=== PATIENT | female | born 1970 | race Caucasian/White ===

== ENCOUNTER → 2020-06-05 07:38 | Outpatient (CLI) | payer OTHER, SELFPAY ==
--- NOTE | 2020-06-05 07:44 | US_ITS ---
PROCEDURE: US ABDOMEN LIMITED CLINICAL INDICATION: CALCULUS OF GALLBLADDER W/O CHOLECYSTITIS W/O OBSTRUCTION COMPARISON: No exams were available for comparison FINDINGS: PANCREAS: Unremarkable. No obvious mass or abnormal fluid collection. No ductal dilatation LIVER: No focal liver lesions demonstrated. Homogeneous echogenicity. No intrahepatic biliary ductal dilatation evident. There is appropriate direction of blood flow within a non dilated portal vein RIGHT KIDNEY: Unremarkable. Normal size and echogenicity. No hydronephrosis GALLBLADDER: Gallbladder is contracted with stones and sludge. No gallbladder wall thickening, pericholecystic fluid, or biliary dilatation. IMPRESSION: Contracted gallbladder filled with stones and sludge Dictated by: Quirino Lima MD 06/08/2020 09:31 uQirino Lima MD in OV 06/08/2020 09:31
--- NOTE | 2020-06-05 07:45 | US_ITS ---
PROCEDURE: US TRANSVAGINAL CLINICAL INDICATION: NEOPLASM OF UNCERTAIN BEHAVIOR OF UTERINE ADNEXA COMPARISON: No exams were available for comparison FINDINGS: UTERUS: 11cm x 7cmx 6cm with a combined endometrial thickness of 11.1mm LEFT OVARY: 2hxe9pph5.2cm with a volume of 32.2ml. RIGHT OVARY: [id number] with a volume of 5.4ml. Nabothian cysts are present. There is a 6 x 4.5 cm fibroid in the fundal area of the uterus. There is a septated 4 cm left ovarian cyst. No cul-de-sac fluid evident. IMPRESSION: Enlarged uterus with 6 cm fibroid in the fundus. 4 cm septated left ovarian cyst Mild thickening of the endometrium Dictated by: Quirino Lima MD 06/08/2020 09:46 Quirino Lima MD in OV 06/08/2020 09:46
== END ==
PROVIDERS: PCP Family Medicine; Visit Provider Family Medicine
DX: K82.0 Obstruction of gallbladder (principal); D39.8 Neoplasm of uncertain behavior of other specified female genital organs
CPT/HCPCS: 76705; 76830

== ENCOUNTER → 2020-06-19 07:42 | Outpatient (CLI) | payer OTHER, SELFPAY ==
[2020-06-19 08:09] LABS: Basophils % 0.4 % (0.1-2.0); Eosinophils # 0.3 K/mm3 (0.0-0.4); Eosinophils % 3.8 % (0.1-12.0); Hematocrit 46.6 % (37.0-47.0); Hemoglobin 15.4 g/dL (12.2-16.2); Lymphocytes # 2.5 K/mm3 (0.7-4.5); Lymphocytes % 27.7 % (10-50); Mean Corpuscular Hemoglobin 29.8 pg (27.0-31.2); Mean Corpuscular Volume 90.2 fl (81-99); Mean Platelet Volume 7.4 fl (7.4-10.4); Monocytes # 0.4 K/mm3 (0.1-1.0); Monocytes % 4.9 % (1.7-9.3); Neutrophils # 5.6 K/mm3 (1.8-7.8); Neutrophils % 63.2 % (37.0-80.0); Platelet Count 356 K/mm3 (142-424); Red Blood Count 5.17 M/mm3 (4.20-5.40); Red Cell Distribution Width 12.9 % (11.5-17.5); White Blood Count 8.9 K/mm3 (4.8-10.8)
[2020-06-19 08:45] LABS: Alanine Aminotransferase 16 U/L (12-78); Albumin Level 4.3 g/dl (3.5-5.0); Albumin/Globulin Ratio 1.3 (1.1-1.8); Alkaline Phosphatase 54 U/L (38-126); Anion Gap 11.4 mEq/L (5-15); Aspartate Amino Transferase 19 U/L (14-36); Bilirubin,Total 0.2 mg/dl (0.2-1.3); Blood Urea Nitrogen 11 mg/dl (7-17); Calcium 9.2 mg/dl (8.4-10.2); Carbon Dioxide 29 mmol/L (22.0-30.0); Chloride 100 mmol/L (98-107); Estimated Glomerular Filt Rate 106 ml/min (>60); GFR (African American) 128 ML/MIN (>60); Globulin 3.3 g/dL (1.3-3.2); Glucose 114 mg/dl (74-100); Potassium 4.4 mmoL/L (3.5-5.1); Sodium 136 mmol/L (136-145); Total Protein,Serum 7.6 g/dl (6.3-8.2)
[2020-06-19 08:53] LABS: Coronavirus 19 IgG Antibody Negative (Negative); Coronavirus 19 IgM Antibody Negative (Negative)
== END ==
PROVIDERS: Visit Provider Surgery
DX: Z01.812 Encounter for preprocedural laboratory examination (principal); Z20.822 Contact with and (suspected) exposure to COVID-19; K82.9 Disease of gallbladder, unspecified
CPT/HCPCS: 36415; 80053; 85025; 86328

== ENCOUNTER 2020-06-21 06:53 | Day surgery (SDC) | payer OTHER, SELFPAY ==
[2020-06-19 11:02] VITALS: BMI 28.3
[2020-06-19 11:25] LABS: HCG Qualitative, Serum Negative (Negative)
[2020-06-21] VITALS (14 sets, daily range): BP systolic 104–139; BP diastolic 56–75; PULSE 62–81; RESP 12–18; TEMP 36.2–43; O2SAT 93–100
--- NOTE | 2020-06-21 08:03 | HMH.ANESCL ---
[facility] Anesthesia Checklist - Patient Identification Patient Identification: Arm Band - Structural Data Admitted From: Home Planned Operative Procedure/s: laparoscopic cholecystectomy Consent for Planned Operative Procedure(s) Verified: Yes Verified Documents: Surgical Consent, History and Physical - NPO Status Verified Time NPO: 00:00 - Additional verifications Anesthesia Reactions: No Hx Blood Transfusions: No Blood Transfusion Reaction: No - Airway Assessment C-Spine Mobility Assessed: Yes (mp2) TMJ Mobility Assessed: Yes Dentition: Good Dentition - Neurological Assessment Level of Consciousness: Awake, Alert - Anesthesia Plan Anesthesia Risk discussed: Yes Anesthesia Plan: Verified ASA Class: II Anesthesia Type: General [facility] History I have reviewed the patient's past medical history: Yes Medical History: Reports:: Gastroesophageal Reflux Disease(GERD) Denies:: Cancer, Diabetes Mellitus Type 1, Diabetes Mellitus Type 2, Internal Pacemaker, MRSA, Seizures *Have you ever received a pneumonia vaccine?: No *Have you received a flu vaccine this season?: No Other Medical History: Denies: Blood Transfusion Reaction Anesthesia experience/problems:: nac Other Surgeries: Yes: Colonoscopy, Tubal Ligation. No: Pacemaker Amputation: No Fractures: No - *Social History Last grade of school completed: High school graduate Smoking Status: Current every day smoker Tobacco Type: cigarettes # Packs/Day (cigarettes): 1 Alcohol Intake: never Alcohol Intake Frequency:: holidays/special occasions only Substance Use Type: denies use *Occupational Status:: employed Housing: house Household Members: spouse *Travel in the last 8 weeks: None Family Hx:: Coronary Artery Disease, Diabetes, Hypertension
--- NOTE | 2020-06-21 09:43 | HMH.OPNOTE ---
Date of procedure: 06/21/20 Pre-op Diagnosis:: Symptomatic gallstones Post-op Diagnosis:: Same Procedure performed:: Laparoscopic Cholecystectomy Surgeon:: Kee Morris MD CREDENTIALING ANALYST:: Caleb Marshall Anesthesia: GETA Estimated blood loss (mL): 25 Clinical Note:: Patient is a pleasant 49-year-old female who lives in [place], [place] referred by Dr. Brady Banda for gallbladder. She states that about a year ago she began having some abdominal pains located in the epigastrium. This is intermittent usually occurring about once per month. However, over the summertime she had a significant attack necessitating an ER visit. She states that over the past couple of months her symptoms have become more constant and more severe. She has pain in the epigastrium and right upper quadrant with radiation around to her right back occasionally. It is not always postprandial but occasionally worsened with spicy foods. She had initially undergone apparent CT scan. She states that there was a question about an upper abdominal hernia. However, this appears to be rectus diastases. She did undergo gallbladder ultrasound which reveals contracted gallbladder filled with multiple gallstones and sludge. 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 She is on Pantoprazole. Operative findings:: She has several distended thickened gallbladder. The neck of the gallbladder tapered into a prominent cystic duct. She had some thin flimsy adhesions of transverse colon to the neck of the gallbladder. Operative note:: Patient was taken to the operating room. She was given preoperative intravenous antibiotics. In the operating room she was placed in a supine position. General anesthesia was induced via endotracheal tube. Her abdomen was prepped and draped in the standard surgical fashion. Subumbilical skin incision was made and while performing abdominal wall lift Veress needle was inserted. CO2 pneumoperitoneum was achieved to 15 mmHg. 11 mm optical trocar was inserted at the umbilicus. Patient was positioned in reverse Trendelenburg left side down. A couple of 5 mm trochars were inserted in the right upper abdomen. 10 mm trocar was inserted in the epigastrium. Gallbladder was grasped retracted anteriorly and superiorly over the dome of the liver. There were some elongated thin flimsy adhesions of the transverse colon to the neck of the gallbladder. These were easily taken down using blunt dissection. Infundibulum/Peres's pouch the gallbladder was retracted anterior laterally. Blunt dissection was carried out at the neck of the gallbladder bluntly incising the visceral peritoneum. Very prolonged dissection was carried out to identify the cystic duct which had chronic adhesions and fibrosis. The neck of the gallbladder tapered to a prominent cystic duct. Ultimately cystic duct and cystic artery were isolated and identified. Cystic duct was isolated, multiply clipped and sharply divided. The cystic artery was coagulated with GIN ultrasonic robotic giovanny and then divided. She did have a couple branches which were both cauterized. The gallbladder was dissected free from the liver in a retrograde fashion using GIN ultrasonic harmonic giovanny. Gallbladder was placed within an Endo Catch retrieval device removed from the peritoneal cavity via the umbilical trocar site. Gallbladder fossa was then inspected for hemostasis which was assured. Limited irrigation was carried out. Trochars were removed as CO2 pneumoperitoneum was evacuated. Fascia at the umbilicus was closed with several interrupted 0 Vicryl sutures. Local anesthetic was infiltrated. Skin incisions were closed with 4-0 Monocryl in subcuticular fashion. Steri-Strips and dressings were applied. Condition: stable Disposition: PACU Specimens:: Gallbladder and contents Complications:: None immediately apparent
--- NOTE | 2020-06-21 09:48 | P.PN_ITS ---
[facility] Anesthesia Record Part I Intake, IV Amount: 1,500 Estimated blood loss (mL): 0 Urine output (mL): 0 Blood Pressure: 139/75 SaO2: 94 Pulse Rate: 81 Respiratory Rate: 12 Temperature: 98 F Patient is:: Awake, Stable Stable to PACU at:: 09:45
[2020-06-22 12:19] VITALS: BP 123/67; PULSE 65; TEMP 36.4
--- NOTE | 2020-06-22 12:19 | P.PN_ITS ---
[facility] Anesthesia Record Part II Discharge Time: 10:54 Destination: Surgical Day Care (OP Surgery) PACU nurse assessment reviewed?: Yes Patient Condition:: Good Anesthesia Complications:: None Swallowing reflex intact?: Yes Cyanosis?: No Blood Pressure: 123/67 Pulse Rate: 65 Temperature: 97.6 F Mental Status: Alert & Oriented Pain level:: 0 Nausea and/or vomitting:: None Intake, IV Amount: 0
== END 2020-06-21 11:30 | disposition home or self-care (01) ==
PROVIDERS: PCP Family Medicine; Visit Provider Surgery
PROC: 0FT44ZZ Resection of Gallbladder, Percutaneous Endoscopic Approach (ICD-10-PCS; CPT 47562; principal; 2020-06-21 08:30)
DX: K80.20 Calculus of gallbladder without cholecystitis without obstruction (principal); K66.0 Peritoneal adhesions (postprocedural) (postinfection); K21.9 Gastro-esophageal reflux disease without esophagitis; Z72.0 Tobacco use; Z82.49 Family history of ischemic heart disease and other diseases of the circulatory system; Z83.3 Family history of diabetes mellitus; Z79.899 Other long term (current) drug therapy
CPT/HCPCS: 47562; 84703; 96374; J2405; J2710

== ENCOUNTER → 2022-03-14 14:32 | Outpatient (CLI) | payer OTHER, SELFPAY ==
[2022-03-14 18:14] LABS: Adenovirus,PCR Not Detected (NotDetected); Bordetella Pertussis Not Detected (NotDetected); Chlamydophila Pneumoniae, PCR Not Detected (NotDetected); Coronavirus 19, PCR Not Detected (NotDetected); Coronavirus 229E Not Detected (NotDetected); Coronavirus NL63 Not Detected (NotDetected); Coronavirus OC43 Not Detected (NotDetected); Coronovirus HKU1,PCR Not Detected (NotDetected); Human Metapneumovirus Not Detected (NotDetected); Influenza A, PCR Not Detected (NotDetected); Influenza AH1, 2009 Not Detected (NotDetected); Influenza AH1, PCR Not Detected (NotDetected); Influenza AH3,PCR Not Detected (NotDetected); Influenza B, PCR Not Detected (NotDetected); Mycoplasma Pneumoniae, PCR Not Detected (NotDetected); Parainfluenza 1, PCR Not Detected (NotDetected); Parainfluenza 2, PCR Not Detected (NotDetected); Parainfluenza 3, PCR Not Detected (NotDetected); Parainfluenza 4, PCR Not Detected (NotDetected); Respiratory Syncytial Virus Not Detected (NotDetected); Rhinovirus/Enterovirus Not Detected (NotDetected)
[2022-03-14 18:35] LABS: Basophils # 0.1 K/mm3 (0-0.2); Basophils % 0.6 % (0.1-2.0); Eosinophils # 0.3 K/mm3 (0.0-0.4); Eosinophils % 2.8 % (0.1-12.0); Hematocrit 43.8 % (37.0-47.0); Hemoglobin 13.9 g/dL (12.2-16.2); Lymphocytes # 2.8 K/mm3 (0.7-4.5); Lymphocytes % 29.6 % (10-50); Mean Corpuscular HGB Conc 31.7 g/dL (31.8-35.4); Mean Corpuscular Hemoglobin 28.6 pg (27.0-31.2); Mean Corpuscular Volume 90.1 fl (81-99); Monocytes # 0.6 K/mm3 (0.1-1.0); Monocytes % 5.8 % (1.7-9.3); Neutrophils # 5.7 K/mm3 (1.8-7.8); Neutrophils % 61.2 % (37.0-80.0); Platelet Count 415 K/mm3 (142-424); Red Blood Count 4.86 M/mm3 (4.20-5.40); Red Cell Distribution Width 13.2 % (11.5-17.5); White Blood Count 9.4 K/mm3 (4.8-10.8)
== END ==
PROVIDERS: PCP Nurse Practitioner; Visit Provider Nurse Practitioner
DX: J06.9 Acute upper respiratory infection, unspecified (principal); J30.9 Allergic rhinitis, unspecified
CPT/HCPCS: 85025; 87581; 87632; 87798; C9803; U0003; U0005

== ENCOUNTER → 2022-05-03 15:05 | Outpatient (CLI) | payer OTHER, SELFPAY | PROVIDERS: PCP Nurse Practitioner; Visit Provider Nurse Practitioner | DX: G47.33 Obstructive sleep apnea (adult) (pediatric) (principal); R06.83 Snoring; J30.9 Allergic rhinitis, unspecified | CPT/HCPCS: G0399 ==

== ENCOUNTER → 2022-05-17 14:15 | Outpatient (CLI) | payer OTHER, SELFPAY ==
[2022-05-17 18:35] LABS: Adenovirus,PCR Not Detected (NotDetected); Bordetella Pertussis Not Detected (NotDetected); Chlamydophila Pneumoniae, PCR Not Detected (NotDetected); Coronavirus 19, PCR Not Detected (NotDetected); Coronavirus 229E Not Detected (NotDetected); Coronavirus NL63 Not Detected (NotDetected); Coronavirus OC43 Not Detected (NotDetected); Coronovirus HKU1,PCR Not Detected (NotDetected); Human Metapneumovirus Not Detected (NotDetected); Influenza A, PCR Not Detected (NotDetected); Influenza AH1, 2009 Not Detected (NotDetected); Influenza AH1, PCR Not Detected (NotDetected); Influenza B, PCR Not Detected (NotDetected); Mycoplasma Pneumoniae, PCR Not Detected (NotDetected); Parainfluenza 1, PCR Not Detected (NotDetected); Parainfluenza 2, PCR Not Detected (NotDetected); Parainfluenza 3, PCR Not Detected (NotDetected); Parainfluenza 4, PCR Not Detected (NotDetected); Respiratory Syncytial Virus Not Detected (NotDetected)
[2022-05-18 00:34] LABS: Rhinovirus/Enterovirus Detected (NotDetected)
[2022-05-20 11:01] LABS: Influenza AH3,PCR Detected (NotDetected)
== END ==
PROVIDERS: PCP Family Medicine; Visit Provider Family Medicine
DX: J40 Bronchitis, not specified as acute or chronic (principal); J09.X2 Influenza due to identified novel influenza A virus with other respiratory manifestations; B34.1 Enterovirus infection, unspecified
CPT/HCPCS: 87581; 87632; 87798; C9803; U0003; U0005

== ENCOUNTER 2023-06-10 09:44 | Outpatient (CLI) | payer OTHER, SELFPAY ==
[2023-06-10 10:03] LABS: Basophils # 0.1 K/mm3 (0-0.2); Basophils % 0.5 % (0.1-2.0); Eosinophils # 0.5 K/mm3 (0.0-0.4); Eosinophils % 5.2 % (0.1-12.0); Hematocrit 43.6 % (37.0-47.0); Hemoglobin 14.8 g/dL (12.2-16.2); Lymphocytes # 2.9 K/mm3 (0.7-4.5); Lymphocytes % 32.7 % (10-50); Mean Corpuscular Hemoglobin 29.6 pg (27.0-31.2); Mean Corpuscular Volume 87.2 fl (81-99); Monocytes # 0.5 K/mm3 (0.1-1.0); Monocytes % 5.8 % (1.7-9.3); Neutrophils # 4.9 K/mm3 (1.8-7.8); Neutrophils % 55.7 % (37.0-80.0); Platelet Count 436 K/mm3 (142-424); Red Cell Distribution Width 13.8 % (11.5-17.5); White Blood Count 8.9 K/mm3 (4.8-10.8)
[2023-06-10 10:28] LABS: Chloride 102 mmol/L (98-107); Potassium 4.5 mmoL/L (3.5-5.1); Sodium 137 mmol/L (136-145)
[2023-06-10 10:30] LABS: Blood Urea Nitrogen 9 mg/dl (7-17); Estimated Glomerular Filt Rate 88 ml/min (>60); GFR (African American) 106 ML/MIN (>60)
[2023-06-10 10:31] LABS: Alanine Aminotransferase 24 U/L (12-78); Albumin Level 4.1 g/dl (3.5-5.0); Albumin/Globulin Ratio 1.4 (1.1-1.8); Alkaline Phosphatase 63 U/L (38-126); Anion Gap 11.5 mEq/L (5-15); Aspartate Amino Transferase 23 U/L (14-36); Bilirubin,Total 0.4 mg/dl (0.2-1.3); Calcium 8.9 mg/dl (8.4-10.2); Carbon Dioxide 28 mmol/L (22.0-30.0); Chol/HDL Ratio 5.2 (1-3.5); Cholesterol 194 mg/dl (140-200); Globulin 2.9 g/dL (1.3-3.2); Glucose 110 mg/dl (74-100); HDL Cholesterol 37 mg/dl (40-60); Triglycerides 131 mg/dl (30-150); VLDL Cholesterol 26 mg/dL (0-40)
[2023-06-10 10:33] LABS: Hemoglobin A1C 6.3 % (4.0-6.0)
[2023-06-10 10:48] LABS: Direct LDL Cholesterol 124.03 mg/dL (100-129)
[2023-06-10 11:01] LABS: Thyroid Stimulating Hormone 0.93 uIU/mL (0.465-4.68)
== END 2023-06-10 23:59 ==
PROVIDERS: PCP Nurse Practitioner; Visit Provider Nurse Practitioner
DX: Z13.0 Encounter for screening for diseases of the blood and blood-forming organs and certain disorders involving the immune mechanism; Z13.1 Encounter for screening for diabetes mellitus; Z13.220 Encounter for screening for lipoid disorders; Z13.29 Encounter for screening for other suspected endocrine disorder; Z12.2 Encounter for screening for malignant neoplasm of respiratory organs; F17.200 Nicotine dependence, unspecified, uncomplicated; R73.09 Other abnormal glucose; E66.9 Obesity, unspecified; Z68.30 Body mass index [BMI] 30.0-30.9, adult
CPT/HCPCS: 36415; 80053; 80061; 83036; 84443; 85025

== ENCOUNTER 2023-10-31 07:59 | Outpatient (CLI) | payer OTHER, SELFPAY ==
[2023-10-31 09:15] LABS: Chloride 104 mmol/L (98-107)
[2023-10-31 09:16] LABS: Potassium 4.4 mmoL/L (3.5-5.1); Sodium 139 mmol/L (136-145)
[2023-10-31 09:18] LABS: Alanine Aminotransferase 21 U/L (12-78); Albumin Level 4.3 g/dl (3.5-5.0); Albumin/Globulin Ratio 1.3 (1.1-1.8); Alkaline Phosphatase 57 U/L (38-126); Anion Gap 10.4 mEq/L (5-15); Aspartate Amino Transferase 23 U/L (14-36); Bilirubin,Total 0.4 mg/dl (0.2-1.3); Blood Urea Nitrogen 11 mg/dl (7-17); Carbon Dioxide 29 mmol/L (22.0-30.0); Estimated Glomerular Filt Rate 87 ml/min (>60); GFR (African American) 106 ML/MIN (>60); Globulin 3.2 g/dL (1.3-3.2); Total Protein,Serum 7.5 g/dl (6.3-8.2)
[2023-10-31 09:19] LABS: Calcium 9.6 mg/dl (8.4-10.2); Chol/HDL Ratio 4.6 (1-3.5); Cholesterol 206 mg/dl (140-200); Glucose 116 mg/dl (74-100); HDL Cholesterol 45 mg/dl (40-60); Triglycerides 113 mg/dl (30-150); VLDL Cholesterol 23 mg/dL (0-40)
[2023-10-31 10:03] LABS: Hemoglobin A1C 6.1 % (4.0-6.0)
== END 2023-10-31 23:59 | disposition home or self-care (01) ==
LOC: LAB 07:59
PROVIDERS: PCP Nurse Practitioner; Visit Provider Nurse Practitioner
DX: R73.01 Impaired fasting glucose (principal); E78.5 Hyperlipidemia, unspecified
CPT/HCPCS: 36415; 80053; 80061; 83036

== ENCOUNTER 2024-10-26 09:30 | Outpatient (CLI) | payer OTHER, SELFPAY ==
[2024-10-26 18:49] LABS: Basophils # 0.1 K/mm3 (0-0.2); Basophils % 0.6 % (0.1-2.0); Eosinophils # 0.6 Kmm3 (0.0-0.4); Eosinophils % 7.1 % (0.1-12.0); Hematocrit 43.6 % (37.0-47.0); Hemoglobin 14.1 g/dL (12.2-16.2); Immature Granulocytes # 0.02 10^3uL; Immature Granulocytes % 0.3 %; Lymphocytes # 2.7 K/mm3 (0.7-4.5); Lymphocytes % 35.4 % (10-50); Mean Corpuscular HGB Conc 32.3 g/dL (31.8-35.4); Mean Corpuscular Volume 89.5 fl (81-99); Mean Platelet Volume 9.8 fl (7.4-10.4); Monocytes # 0.6 K/mm3 (0.1-1.0); Monocytes % 8.3 % (1.7-9.3); Neutrophils # 3.7 K/mm3 (1.8-7.8); Neutrophils % 48.3 % (37.0-80.0); Nucleated Red Blood Cells # 0 10^3/uL; Nucleated Red Blood Cells % 0 %; Platelet Count 334 K/mm3 (142-424); Red Blood Count 4.87 M/mm3 (4.20-5.40); Red Cell Distribution Width 12.8 % (11.5-17.5); White Blood Count 7.7 K/mm3 (4.8-10.8)
[2024-10-26 18:53] LABS: Creatinine,Urine Random 10 mg/dL (Not Estab.)
[2024-10-26 19:06] LABS: Microalbumin < 6.000 mg/L (0-16.7)
[2024-10-26 19:27] LABS: Alanine Aminotransferase 16 U/L (12-78); Albumin Level 4.3 g/dl (3.5-5.0); Albumin/Globulin Ratio 1.5 (1.1-1.8); Alkaline Phosphatase 63 U/L (38-126); Anion Gap 6.2 mEq/L (5-15); Aspartate Amino Transferase 18 U/L (14-36); Bilirubin,Total 0.3 mg/dl (0.2-1.3); Blood Urea Nitrogen 10 mg/dl (7-17); Calcium 9.2 mg/dl (8.4-10.2); Carbon Dioxide 29 mmol/L (22.0-30.0); Chloride 107 mmol/L (98-107); Chol/HDL Ratio 4.2 (1-3.5); Cholesterol 190 mg/dl (140-200); Estimated Glomerular Filt Rate 87 ml/min (>60); GFR (African American) 105 ML/MIN (>60); Globulin 2.9 g/dL (1.3-3.2); Glucose 108 mg/dl (74-100); HDL Cholesterol 45 mg/dl (40-60); Potassium 4.2 mmoL/L (3.5-5.1); Sodium 138 mmol/L (136-145); Total Protein,Serum 7.2 g/dl (6.3-8.2); Triglycerides 104 mg/dl (30-150); VLDL Cholesterol 21 mg/dL (0-40)
[2024-10-26 19:36] LABS: NT Pro Brain Natriuretic Pep. 86.2 pg/mL (0-125)
[2024-10-26 19:38] LABS: Direct LDL Cholesterol 105.63 mg/dL (100-129)
[2024-10-26 19:58] LABS: Thyroid Stimulating Hormone 0.92 uIU/mL (0.465-4.68)
[2024-10-26 20:06] LABS: HIV Combo NEGATIVE (Negative)
[2024-10-26 21:25] LABS: Hepatitis C Ab Qual. W/ RFX NEGATIVE (Negative)
--- OUTSIDE RECORDS SUMMARY | 2024-10-27 11:55 | XMS_ITS | Clinical Summary ---
Author Organization Healthcare Address [address] [place] [address] Care Team Providers Care Automatic Die Cutting Machine Operator Name Role Phone Unavailable Primary Care Provider Unavailabl e Social History Tobacco Use Types Packs/Day Years Used Date Smoking Tobacco: Never Assessed Comments Unknown Sex and Gender Information Value Date Recorded Sex Assigned at Not on file Legal Sex Female 8:13 AM EDT Gender Identity Not on file Sexual Orientation Not on file Plan of Treatment Not on file
--- OUTSIDE RECORDS SUMMARY | 2024-10-27 11:55 | XMS_ITS | Encounter Summary ---
Author Organization Healthcare Address [address] [place] [address] Care Team Providers Care Database Design Analyst Name Role Phone Unavailable Primary Care Provider Unavailabl e Encounter Details Date Type Department Care Team (Late st Contact Info) Description 01/10/2023 Community Orders [facility] [address] [place] [address] Bita Christopher, RETURN AGENT [address] [place] [address] Obstructive sleep apnea (Primary Dx); BMI 29.0-29.9,adult Social History Tobacco Use Types Packs/Day Years Used Date Smoking Tobacco: Never Assessed Comments Unknown Sex and Gender Information Value Date Recorded Sex Assigned at Not on file Legal Sex Female 8:13 AM EDT Gender Identity Not on file Sexual Orientation Not on file documented as of this encounter Plan of Treatment Not on file documented as of this encounter Visit Diagnoses Diagnosis Obstructive sleep apnea- Primary Obstructive sleep apnea (adult) (pediatric) BMI 29.0-29.9,adult documented in this encounter
--- OUTSIDE RECORDS SUMMARY | 2024-10-27 11:56 | XMS_ITS | Clinical Summary ---
Author Organization [facility] Address [address] [facility] [place] [address] Phone Care Team Providers Care Mutton Puncher Name Role Phone Shira Anthony Primary Care Provider [phone] Allergies Active Allergy Reactions Criticality Noted Date Comments Guaifenesin Palpitations 10/05/2021 MUCINEX DM Medications pantoprazole (PROTONIX) 40 mg Oral Tablet, Delayed Release (E.C.) 05/24/2020 Active ferrous sulfate 325 mg (65 mg iron) Oral Tablet 03/09/2020 Active ibuprofen (ADVIL;MOTRIN) 600 mg Oral Tablet Take 1 Tablet by mouth every 6 hours as needed. 60 Tablet 1 10/11/2021 9:32 AM EDT 10/11/2021 Active Active Problems Problem Noted Date Diagnosed Date Abnormal uterine bleeding (AUB) 10/04/2021 Overview (10/04/2021): Added automatically from request for surgery [id number] Perimenopausal 04/30/2016 Surgical History Surgery Date Site/Laterality Comments TUBAL LIGATION CHOLECYSTECTOMY 07/11/2020 COLONOSCOPY UPPER GASTROINTESTINAL ENDOSCOPY ENDOMETRIAL ABLATION 10/11/2021 N/A ENDOMETRIAL ABLATION WITH NOVASURE DILATION AND CURETTAGE HYSTEROSCOPY; Surgeon: Jacqueline Fine DO; Location: ED MAIN OR; Service: Gynecology Medical History Medical History Date Comments Anemia Family History Medical History Relation Name Comments Diabetes Mother Heart Disease Mother Hypertension Mother Colon Cancer Paternal Grandmother Anesth Problems Neg Hx Breast Cancer Neg Hx Ovarian Cancer Neg Hx Uterine Cancer Neg Hx Relation Name Status Comments Father Alive Mother Alive Paternal Grandmother Son Alive Social History Tobacco Use Types Packs/Day Years Used Date Smoking Tobacco: Every Day Cigarettes 1 40 Started: 10/17/1984 Smokeless Tobacco: Never Comments:Down to .5 PPD Alcohol Use Standard Drinks/Week Comments Yes 0 (1 standard drink = 0.6 oz pur e alcohol) once monthly Sexually Active Control Partners Comments Yes Surgical Male Tubal ligation Comments No Sex and Gender Information Value Date Recorded Sex Assigned at Not on file Legal Sex Female 4:57 PM EDT Gender Identity Not on file Sexual Orientation Not on file Obstetrics History Para Term AB IAB SAB Ectopic Multiple Livin g Live Births 3 3 3 3 3 Date Outcome GA Total Labor Labor//3rd Weight Sex Type Anes PTL Sabrina A1 A5 Name Clin Term M Vag-S pont Living Term M Vag-S pont Living Term M Vag-S pont Living Last Filed Vital Signs Vital Sign Reading Time Taken Comments Blood Pressure 108/62 10/11/2021 9:27 AM EDT Pulse 60 10/11/2021 9:27 AM EDT Temperature 36.1 C (97 F) 10/11/2021 9:12 AM EDT Respiratory Rate 16 10/11/2021 9:27 AM EDT Oxygen Saturation 95% 10/11/2021 9:27 AM EDT Inhaled Oxygen Concentration - - Weight 79.4 kg (175 lb) 10/11/2021 6:30 AM EDT Height 165.1 cm (5' 5 ) 10/11/2021 6:30 AM EDT Body Mass Index 29.12 10/11/2021 6:30 AM EDT Plan of Treatment Health Maintenance Due Date Last Done Comments Annual Wellness Exam 1972 DTaP/TDaP/Td (1 - Tdap) 1988 Hepatitis B Vaccine (1 of 3 - 19+ 3-dose series) 1988 Pneumococcal Vaccine 50+ (1 of 2 - PCV) 1988 Cologuard 2014 FIT 2014 Sigmoidoscopy 2014 Virtual Colonography 2014 Zoster (1 of 2) 10/24/2019 Colon Cancer Screening 12/01/2022 Colonoscopy 12/01/2022 12/02/2019 COVID-19 Vaccine (2023-2 5 season) 2024 04/19/2021, 08/25/2020, 08/18/2020 Low Dose Lung Cancer Screening 07/20/2024 0 07/21/2023, 01/17/2015 Pap Smear 09/10/2024 09/10/2021, 06/14/2020, 08/08/2015 Influenza Vaccine (Season Ended) 2025 07/16/2018 Breast Cancer Screening 06/13/2025 06/13/19 24, 09/22/2020, 07/14/2013 Cervical Cancer Screening 09/10/2026 HPV/Pap Cotest 09/10/2026 09/10/2021 Meningococcal B Vaccine Aged Out No l onger eligible based on patient's age to complete this topic Procedures Procedure Name Priority Date/Time Associated Diagnosis Comments CT LUNG CANCER SCREENING LOW DOSE Routine 07/21/2023 8:19 AM EST Screening for malignant neoplasm of respiratory organ Personal history of tobacco use, presenting hazards to health MM MAMMO DIGITAL NISHANT SCREEN BILAT Routine 06/13/2023 11:23 AM EST Encounter for screening mammogram for malignant neoplasm of breast MEDIA SALES CONSULTANT CYTOLOGY REQUEST (PAP ONLY) Routine 09/10/2021 11:17 AM EDT Well woman exam from Last 3 Months or Most Recently Relevant to Health Maintenance Results * CT LUNG CANCER SCREENING LOW DOSE (07/21/2023 8:19 AM EST) Anatomical Region Laterality Modality Lung Computed Tomogra phy 07/21/2023 8:19 AM EST Impressions 07/21/2023 10:09 AM EST Unremarkable low-dose screening chest CT. RECOMMENDATION: Low Dose CT - 1 Yr A summary letter communicating these results will be mailed to the patient's address of record. - Note: Radiology results need to be interpreted within a comprehensive clinical context. If you have questions about the radiology report, please contact the office of the ordering clinician. [email or web address] Narrative 07/21/2023 10:[address] LUNG CANCER SCREENING LOW DOSE 07/21/2023 8:19 AM CLINICAL HISTORY: Asymptomatic patient meeting NCCN high risk criteria for lung screening. Z12.2-Encounter for screening for malignant neoplasm of respiratory mblhym-LOT-49-CM Z87.891-Personal history of nicotine hzdijnbirc-XAA-34-CM. COMPARISON: 01/17/2015 PROCEDURE COMMENTS: Noncontrast, low-dose, multidetector CT chest per department protocol. Interactive 3-D postprocessing done by the reviewing physician on a SYNGO workstation, using Maximum intensity projections (MIPS) and SYNGYelago LUNG CAD for improved lesion detection. Mireles images archived to PACS. Dose 1 : CT DLP Total : 49.35 mGycm DLP Spiral Max : 46.41 mGycm Maximum CTDI Vol : 1.35 mGy FINDINGS: No suspicious pulmonary nodule. 7 mm subpleural nodule in the lingula is stable (axial 138). No new or enlarging nodules. Evidence of old healed granulomatous disease. No acute inflammatory process. Heart and mediastinum unremarkable. Coronary artery calcification: None. FOLLOW-UP CODE: Lung-RADS Category 2: Benign Appearance or Behavior. Nodules with a very low likelihood of becoming active cancer due to size or lack of growth. Lung-RADS Modifier N/A: No Modifier Needed Procedure Note Dwain Patrick MD - 07/21/2023 CT LUNG CANCER SCREENING LOW DOSE 07/21/2023 8:19 AM CLINICAL HISTORY: Asymptomatic patient meeting NCCN high risk criteria forlung screening. Z12.2-Encounter for screening for malignant neoplasm ofrespiratory jryfae-VIT-45-CM Z87.891-Personal history of nicotine qcnsjkhnzk-JBL-15-CM. COMPARISON: 01/17/2015 PROCEDURE COMMENTS: Noncontrast, low-dose, multidetector CT chest perdepartment protocol. Interactive 3-D postprocessing done by the reviewing physicianon a AtmospheirO workstation, using Maximum intensity projections (MIPS) and SYNGBeagle BioproductsUNG CAD for improved lesion detection. Mireles images archived to PACS. Dose 1 : CT DLP Total : 49.35 mGycm DLP Spiral Max : 46.41 mGycm Maximum CTDI Vol : 1.35 mGy FINDINGS: No suspicious pulmonary nodule. 7 mm subpleural nodule in thelingula is stable (axial 138). No new or enlarging nodules. Evidence of oldhealed granulomatous disease. No acute inflammatory process. Heart andmediastinum unremarkable. Coronary artery calcification: None. FOLLOW-UP CODE: Lung-RADS Category 2: Benign Appearance or Behavior.Nodules with a very low likelihood of becoming active cancer due to size or lackof growth. Lung-RADS Modifier N/A: No Modifier Needed IMPRESSION: Unremarkable low-dose screening chest CT. RECOMMENDATION: Low Dose CT - 1 Yr A summary letter communicating these results will be mailed to thepatient's address of record. - Note: Radiology results need to be interpreted within a comprehensiveclinical context. If you have questions about the radiology report, please contactthe office of the ordering clinician. [email or web address] Belkis Maguire APRN IMG CT ORDERABLES Final Result * MM MAMMO DIGITAL NISHANT SCREEN BILAT (06/13/2023 11:23 AM EST) Anatomical Region Laterality Modality Breast Bilateral Mammography 06/13/2023 1:35 PM EST Impressions 06/13/2023 1:35 PM EST Negative ([id number]-[id number]-4) ~ RECOMMENDATION: Routine screening mammogram in 1 year. Tomosynthesis recommended ~ DISCLAIMER * Any patient with a palpable abnormality, unexplained by breast imaging, should be managed on clinical basis by the attending physician. * Breast imaging has a false negative rate of 15%. * The patient was notified by mail of the results of this examination. *The patient's information was entered into a reminder system with a target due date for the next mammogram, in accordance with the [employer] and the Society of Breast Imaging recommendations. Narrative 06/13/2023 1:35 PM EST Procedure:MM MAMMO DIGITAL NISHANT SCREEN BILAT ~ Reason for exam: screening, asymptomatic. Z12.31-Encounter for screening mammogram for malignant neoplasm of bmxemc-FRJ-56-CM ~ MM MAMMO DIGITAL NISHANT SCREEN BILAT Bilateral CC and MLO view(s) were taken. Technologist: Brigitte Tran, RT The breast tissue is heterogeneously dense. This may lower the sensitivity of mammography. Prior study comparison: Compared with prior studies the most recent being 09/22/20, 07/14/13 No mammographic evidence of malignancy. ~ Procedure Note Ruperto Nowak MD - 06/13/2023 Procedure:MM MAMMO DIGITAL NISHANT SCREEN BILAT ~ Reason for exam: screening, asymptomatic. Z12.31-Encounter for screening mammogram for malignant neoplasm of gbnhxr-SGJ-79-CM ~ MM MAMMO DIGITAL NISHANT SCREEN BILAT Bilateral CC and MLO view(s) were taken. Technologist: Brigitte Tran, RT The breast tissue is heterogeneously dense. This may lower thesensitivity of mammography. Prior study comparison: Compared with prior studies the most recentbeing 09/22/20, 07/14/13 No mammographic evidence of malignancy. ~ IMPRESSION: Negative (MMB-Ktejqjly-8) ~ RECOMMENDATION: Routine screening mammogram in 1 year. Tomosynthesis recommended ~ DISCLAIMER * Any patient with a palpable abnormality, unexplained by breast imaging, should be managed on clinical basis by the attending physician. * Breast imaging has a false negative rate of 15%. * The patient was notified by mail of the results of this examination. *The patient's information was entered into a reminder system with atarget due date for the next mammogram, in accordance with the [employer] and the Society of Breast Imaging recommendations. Belkis Maguire RESTAURANT SUPERVISOR IMG MAMMOGRAPHY ORDERABLES Fin al Result * MEDIA SALES CONSULTANT CYTOLOGY REQUEST (PAP ONLY) (09/10/2021 11:17 AM EDT) CASE REPORT Gynecologic Cytology Report Case: [id number] Authorizing Provider: Jacqueline Fine Collected: 09/10/2021 1117 DO Tabby Ordering Location: [facility] Received: 09/10/2021 1117 First Screen: Leann Easley, CT Specimen: LIQUID-BASED PAP - CERVICAL/ENDOCERV ICAL, Cervix, Endocervical 09/17/2021 10:21 AM EDT [facility] PAP FINAL DIAGNOSIS Negative for intraepithelial lesion or malignancy 09/17/2021 10:21 AM EDT [facility] at 1021 EDT MICROSCOPIC DESCRIPTION Microscopic examination is performed and the findings corroborate the diagnosis. 09/17/2021 10:21 AM EDT [facility] PAP SMEAR ADEQUACY Satisfactory for evaluation 09/17/2021 10:21 AM EDT [facility] ENDOCERVICAL T-ZONE Transformation zone present 09/17/2021 10:21 AM EDT [facility] EMBEDDED IMAGES 10:21 AM EDT [facility] PAP DISCLAIMER Note: this specimen was reprocessed due to excessive blood. The Pap Smear is a screening test that aids in the detection of cervical cancer and cancer precursors. Both false positive and false negative results can occur. The test should be used at regular intervals, and positive results should be confirmed before definitive therapy. Processed using the QubolePrep Assistant Auto Center Manager Automated cytology screening device (Moven). 09/17/2021 10:21 AM EDT [facility] PAP OTHER FINDINGS Many acute inflammatory cells noted. 09/17/2021 10:21 AM EDT [facility] Thin Prep ENDOCERVICAL STRUCTURE / Unknown 09/10/2021 11:17 AM EDT 09/10/2021 11:17 AM EDT us Jacqueline Fine DO CYTOLOGY ORDERABLE S Final Result [facility] [address] [place] [address] from Last 3 Months or Most Recently Relevant to Health Maintenance Insurance [employer] [address] [place] [address] Care Teams Mutton Puncher Relationship Specialty Start Date End Date Shira Anthony [address] [place] [address] PCP - General Family Medicine 07/14/13
[2024-10-28 06:10] LABS: Hepatitis B Surface Antigen Negative (Negative)
== END 2024-10-26 23:59 | disposition home or self-care (01) ==
LOC: LAB.DROPOF 10-27 11:53
PROVIDERS: PCP Nurse Practitioner; Visit Provider Nurse Practitioner
DX: E78.5 Hyperlipidemia, unspecified (principal); R60.0 Localized edema; R73.01 Impaired fasting glucose; R82.998 Other abnormal findings in urine; Z13.0 Encounter for screening for diseases of the blood and blood-forming organs and certain disorders involving the immune mechanism
CPT/HCPCS: 80053; 80061; 82043; 82570; 83036; 83880; 84443; 85025; 86803; 87086; 87340; 87389

== ENCOUNTER 2025-01-14 10:22 | Outpatient (CLI) | payer OTHER, SELFPAY ==
--- OUTSIDE RECORDS SUMMARY | 2024-11-29 15:15 | XMS_ITS | Encounter Summary ---
Author Organization [facility] Address [address] [address] Care Team Providers Care Echocardiograph Technician Name Role Phone Shira Anthoyn Primary Care Provider [phone] Reason for Referral * Physical Therapy (Routine) - Authorized Specialty Diagnoses / Procedures Referred By Contmaggy t Referred To Contact Physical Therapy Diagnoses Acute pain of right shoulder Adhesive capsulitis of right shoulder Tendinitis of right rotator cuff Roderick Duffy MD [address] [facility] [address] [place] [address] Phone: tel: fax: [facility] [place] [address] Phone: tel: fax: Referral ID Status Reason Start Date Expiration Date V isits Requested Visits Authorized [id number] Authorized 11/29/2024 11/29/2025 99 99 Question Answer Select as appropriate Evaluate and treat appropriately Modalities/Procedures As Indicated Therapeutic Exercise As Indicated Goals: Decrease pain and swelling, Increase function, Increase strength, Increase ROM Additional instructions: Frequency and duration per therapist discretion Comments Physical Therapy Office locations In [place]: [place]: [place]: [place]: [address] [address] [place], [place] [id number] [place] [address] Reason for Visit * Reason Comments Pain Encounter Details Date Type Department Care Team (Late st Contact Info) Description 11/29/2024 3:15 PM EDT Office Visit Pamela Couch [address] [place] [address] Roderick Duffy MD [address] [facility] [address] [place] [address] Acute pain of right shoulder (Primary Dx); Adhesive capsulitis of right shoulder; Tendinitis of right rotator cuff Social History Tobacco Use Types Packs/Day Years Used Date Smoking Tobacco: Every Day Cigarettes 1 40.3 Started: 10/17/1984 Smokeless Tobacco: Never Comments:Down to [...] on file documented as of this encounter Ordered Prescriptions Prescription Sig Dispense Quantity Refills Last Filled Start Date End Date meloxicam (MOBIC) 15 mg Oral TabletIndications:A cute pain of right shoulder,Adhesive capsulitis of right shoulder,Tendinitis of right rotator cuff Take 1 Tablet by mouth daily. 30 Tablet 2 11/29/2024 documented in this encounter Progress Notes * Roderick Duffy MD - 11/29/2024 3:15 PM EDTAssociated Order(s): Large Joint Injection/Arthrocentesis: R glenohumeral Post-Procedure Diagnose(s): Adhesive capsulitis of right shoulder; Tendinitis of right rotator cuff; Acute pain of right shoulder Images from the original note were not included. Roderick Duffy MD Knee, Shoulder, Sports Medicine & Trauma Orthopaedic Surgery [phone] [employer] 11/29/2024 Subjective: Patient ID: Vickie Rodgers is a 54 y.o. patient that has a chief complaint of Chief Complaint Patient presents with ??? Right Shoulder - Pain Patient HPI for New Patient/Injury: What caused the pain/What was the injury?: Patient denies to have any injury of the shoulder . Theyreport of having gradual pain symptoms. The patient describes pain symptoms as intermittent achy sensation. No injury or trauma Location of pain: Superior Shoulder Pain level: (0-10): Today 0 Worst 10 When did it start?: September 2024 What makes it better?Resting. . What treatment have they had?: (ex: treatment elsewhere, injections, PT etc.) Taken Ibuprofen as needed. . What makes it worse: Abduction, Extension. 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 Objective: General: Well-appearing with appropriate affect. No acute distress. Appears stated age. Estimated body mass index is 29.12 kg/m?? as calculated from the following: Height as of 10/11/21: 5' 5 (1.651 m). Weight as of 10/11/21: 175 lb (79.4 kg). Head: Normocephalic, atraumatic. Extraocular muscles intact Neuro: Alert and oriented Pulmonary: Respirations are unlabored Psychiatric: Mood is appropriate for circumstances. Musculoskeletal Exam: Right Shoulder Exam Tenderness Right shoulder tenderness location: lateral and shoulder. 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 Diagnoses and all orders for this visit: Acute pain of right shoulder - XR SHOULDER RIGHT 4 VIEWS - meloxicam (MOBIC) 15 mg Oral Tablet; Take 1 Tablet by mouth daily. - AMB REFERRAL TO PHYSICAL THERAPY - Large Joint Injection/Arthrocentesis: R glenohumeral - lidocaine 20 mg/mL (2 %) injection 4 mL - triamcinolone acetonide (KENALOG-40) injection 80 mg Adhesive capsulitis of right shoulder - meloxicam (MOBIC) 15 mg Oral Tablet; Take 1 Tablet by mouth daily. - AMB REFERRAL TO PHYSICAL THERAPY - Large Joint Injection/Arthrocentesis: R glenohumeral - lidocaine 20 mg/mL (2 %) injection 4 mL - triamcinolone acetonide (KENALOG-40) injection 80 mg Tendinitis of right rotator cuff - meloxicam (MOBIC) 15 mg Oral Tablet; Take 1 Tablet by mouth daily. - AMB REFERRAL TO PHYSICAL THERAPY - Large Joint Injection/Arthrocentesis: R glenohumeral - lidocaine 20 mg/mL (2 %) injection 4 mL - triamcinolone acetonide (KENALOG-40) injection 80 mg THE PLAN IS OUTLINED BELOW: Shoulder Plan: The pathophysiology and treatment of the above finding and diagnosis(es) was discussed with the patient and/or family in detail. Risks, benefits and alternatives were discussed with the patient. We discussed pertinent testing, imaging, models or illustrations. Options potentially discussed include:relative rest, ice, activity modification (sports and/or work), physical therapy, NSAID'S, Tylenol,topical creams, injections and surgical options. Given the risks, benefits and alternatives, the patient has elected for Conservative management with a cortisone injection today in office, physical therapy, and meloxicam. The patient will see us back in 2 months to reevaluate shoulder motion and function. Large Joint Injection/Arthrocentesis: R glenohumeral on 11/29/2024 3:15 PM Indications: pain and joint swelling Details: 22 G needle, posterior approach Medications: 4 mL lidocaine 20 mg/mL (2 %); 80 mg triamcinolone acetonide 40 mg/mL Corticosteroid Injection PROCEDURE: Verbal consent was obtained for a corticosteroid injection. The patient understands there is a risk for infection which may require surgery. In addition, they may get only temporary reliefor no relief of their symptoms. The patient is advised to call the office of any signs of infectionimmediately, or any other concerns. The patient was also advised to watch their blood sugars if they have diabetes. The right shoulder posterior approach glenohumeral joint was prepped in a standard fashion The injection site was marked; it was wiped with alcohol first, and then sterilely prepped with Betadine. The affected area was injected with 2 cc triamcinolone and 4 cc 2% Xylocaine. The patient tolerated the injection well with no complications. Procedure, treatment alternatives, risks and benefits explained, specific risks discussed. Consent was given by the patient. Patient was prepped and draped in the usual sterile fashion. No follow-ups on file. Please feel free to visit my website for additional information on musculoskeletal and orthopaedic care. : [employer] ALLERGIES Allergies Allergen Reactions ??? Mucinex [Guaifenesin] Palpitations MUCINEX DM PAST MEDICAL HISTORY Past Medical History: Diagnosis Date ??? Anemia FAMILY HISTORY Family History Problem Relation Age of Onset ??? Diabetes Mother ??? Hypertension Mother ??? Heart Disease Mother ??? Colon Cancer Paternal Grandmother ??? Breast Cancer Neg Hx ??? Ovarian Cancer Neg Hx ??? Uterine Cancer Neg Hx ??? Anesth Problems Neg Hx SOCIAL HISTORY Social History Socioeconomic History ??? Marital status: Tobacco Use ??? Smoking status: Every Day Current packs/day: 1.00 Average packs/day: 1 pack/day for 40.1 years (40.1 ttl pk-yrs) Types: Cigarettes Start date: 10/17/1984 ??? Smokeless tobacco: Never ??? Tobacco comments: Down to .5 PPD Vaping Use ??? Vaping status: Never Used Substance and Sexual Activity ??? Alcohol use: Yes Alcohol/week: 0.0 oz Comment: once monthly ??? Drug use: No ??? Sexual activity: Yes Partners: Male control/protection: Surgical Comment: Tubal ligation SURGICAL HISTORY Past Surgical History: Procedure Laterality Date ??? CHOLECYSTECTOMY 07/11/2020 ??? COLONOSCOPY ??? ENDOMETRIAL ABLATION N/A 10/11/2021 ENDOMETRIAL ABLATION WITH NOVASURE DILATION AND CURETTAGE HYSTEROSCOPY; Surgeon: Jacqueline Fine DO; Location: [facility]; Service: Gynecology ??? TUBAL LIGATION ??? UPPER GASTROINTESTINAL ENDOSCOPY CURRENT MEDICATIONS Outpatient meds: Current Outpatient Medications: ??? ferrous sulfate 325 mg (65 mg iron) Oral Tablet, , Disp: , Rfl: ??? ibuprofen (ADVIL;MOTRIN) 600 mg Oral Tablet, Take 1 Tablet by mouth every 6 hours as needed., Disp: 60 Tablet, Rfl: 1 ??? meloxicam (MOBIC) 15 mg Oral Tablet, Take 1 Tablet by mouth daily., Disp: 30 Tablet, Rfl: 2 ??? pantoprazole (PROTONIX) 40 mg Oral Tablet, Delayed Release (E.C.), , Disp: , Rfl: Roderick Duffy MD Knee, Shoulder, Sports Medicine & Trauma Orthopaedic Surgery [facility] [phone] Parts of this note may have been created by a chart review, combined by taking my own patient history. The patient was physically seen and examined by myself, including a personal review of images, tests, and formation of the impression and plan. In addition, this note may been dictated utilizing voice recognition software. Unfortunately this leads to occasional typographical errors. I apologize in advance if the situation occurs. If questions occur about dictation mistakes, please do not hesitate to call our office. The patient was advised to call with any issues or concerns in the future. documented in this encounter Plan of Treatment Upcoming Encounters Date Type Department Care Team (Late st Contact Info) Description 01/21/2025 7:30 AM EDT Appointment [facility] Physical Therapy [place], [place] [address] Ever Koroma, JOANN 01/24/2025 10:30 AM EDT Appointment [facility] Physical Therapy [place], [place] [address] Kyle Lee PTA 01/28/2025 8:45 AM EDT Office Visit [address] [id number] Roderick Duffy MD [address] [address] 01/28/2025 9:30 AM EDT Appointment [facility] Physical Therapy [place], [place] [address] Kyle Lee PTA Scheduled Referrals Name Type Priority Associated Diagnoses Orde r Schedule AMB REFERRAL TO PHYSICAL THERAPY Outpatient Referral Routine Acute pain of right shoulder Adhesive capsulitis of right shoulder Tendinitis of right rotator cuff Ordered: 11/29/2024 documented as of this encounter Procedures Procedure Name Priority Date/Time Associated Diagnosis Comments XR SHOULDER RIGHT 4 VIEWS Routine 11/29/2024 3:28 PM EDT Acute pain of right shoulder [place] ARTHROCENTESIS ASPIR&/INJ MAJOR JT/BURSA W/O US Routine 11/29/2024 3:15 PM EDT Acute pain of right shoulder Adhesive capsulitis of right shoulder Tendinitis of right rotator cuff documented in this encounter Results * XR SHOULDER RIGHT 4 VIEWS (11/29/2024 3:28 PM EDT) Narrative [place] [address]/14/2025 3:28 PM EDT Please see physician's note from office encounter for x-ray imaging result Result [facility] Roderick Duffy MD IMG DIAGNOSTIC IMAGING O RDERABLES Final Result Performing Organization Address [facility] Co de Phone Number [facility] * [place] ARTHROCENTESIS ASPIR&/INJ MAJOR JT/BURSA W/O US (11/29/2024 3:15 PM EDT) Narrative [facility] - 11/29/2024 3:15 PM EDT Roderick Duffy MD 11/29/2024 4:01 PM Large Joint Injection/Arthrocentesis: R glenohumeral on 11/29/2024 3:15 PM Indications: pain and joint swelling Details: 22 G needle, posterior approach Medications: 4 mL lidocaine 20 mg/mL (2 %); 80 mg triamcinolone acetonide 40 mg/mL Corticosteroid Injection PROCEDURE: Verbal consent was obtained for a corticosteroid injection. The patient understands there is a risk for infection which may require surgery. In addition, they may get only temporary relief or no relief of their symptoms. The patient is advised to call the office of any signs of infection immediately, or any other concerns. The patient was also advised to watch their blood sugars if they have diabetes. The right shoulder posterior approach glenohumeral joint was prepped in a standard fashion The injection site was marked; it was wiped with alcohol first, and then sterilely prepped with Betadine. The affected area was injected with 2 cc triamcinolone and 4 cc 2% Xylocaine. The patient tolerated the injection well with no complications. Procedure, treatment alternatives, risks and benefits explained, specific risks discussed. Consent was given by the patient. Patient was prepped and draped in the usual sterile fashion. Roderick Duffy MD PROCEDURE/MINOR SURGICAL ORDERABLES Edited Result - Final Performing Organization Address [facility] Co de Phone Number [facility] documented in this encounter Visit Diagnoses Diagnosis Acute pain of right shoulder- Primary Adhesive capsulitis of right shoulder Adhesive capsulitis of shoulder Tendinitis of right rotator cuff Disorders of bursae and tendons in shoulder region, unspecified documented in this encounter Administered Medications Inactive Administered Medications - up to 1 most recent administrations Medication Order MAR Action Action Date Dose Rate Site lidocaine 20 mg/mL (2 %) injection 4 mL 4 mL, Intramuscular, ONCE PRN, 1 dose, Starting on Fri11/29/24 at 1515, Until Fri11/29/24 at 1515, Dx: 1. Acute pain of right shoulder 2. Adhesive capsulitis of right shoulder 3. Tendinitis of right rotator cuffIndications:Acute pain of right shoulder,Adhesive capsulitis of right shoulder,Tendinitis of right rotator cuff Given 11/29/2024 3:15 PM EDT 4 mL Right Shoulder triamcinolone acetonide (KENALOG-40) injection 80 mg 80 mg, Intra-articular, ONCE PRN, 1 dose, Starting on Fri11/29/24 at 1515, Until Fri11/29/24 at 1515, Dx: 1. Acute pain of right shoulder 2. Adhesive capsulitis of right shoulder 3. Tendinitis of right rotator cuffIndications:Acute pain of right shoulder,Adhesive capsulitis of right shoulder,Tendinitis of right rotator cuff Given 11/29/2024 3:15 PM EDT 80 mg Right Shoulder documented in this encounter Care Teams Echocardiograph Technician Relationship Specialty Start Date End Date Shira Anthony [facility] [address] [place] [address] PCP - General Family Medicine 07/14/13 documented as of this encounter
--- OUTSIDE RECORDS SUMMARY | 2024-11-29 15:30 | XMS_ITS | Encounter Summary ---
Author Organization [facility] Address [address] [place] [address] Care Team Providers Care Cabinetmaker Supervisor Name Role Phone Shira Anthony Primary Care Provider [phone] Encounter Details Date Type Department Care Team (Late Contact Info) Description 11/29/2024 3:30 PM EDT Ancillary [place] [address] Roderick Duffy MD [address] [place] [address] [address] [place] [address] Social History Tobacco Use Types Packs/Day Years [...] as of this encounter Plan of Treatment Upcoming Encounters Date Type Department Care Team (Late st Contact Info) Description 01/21/2025 7:30 AM EDT Appointment [facility] Physical Therapy [address] [place] [phone] Ever Koroma PT 01/24/2025 10:30 AM EDT Appointment [facility] Physical Therapy [address] [place] [phone] Kyle Lee PTA 01/28/2025 8:45 AM EDT Office Visit [facility] [address] [place], [place] [id number] Roderick Duffy MD [address] [facility] [address] [place] [id number] 01/28/2025 9:30 AM EDT Appointment [facility] Physical Therapy [place] [address] Kyle Lee PTA documented as of this encounter Procedures Procedure Name Priority Date/Time Associated Diagnosis Comments XR SHOULDER RIGHT 4 VIEWS Routine 11/29/2024 3:28 PM EDT Acute pain of right shoulder documented in this encounter Results * XR SHOULDER RIGHT 4 VIEWS (11/29/2024 3:28 PM EDT) Narrative [facility] - 11/29/2024 3:28 PM EDT Please see physician's note from office encounter for x-ray imaging result Roderick Duffy MD IMG DIAGNOSTIC IMAGING O RDERABLES Final Result [facility] documented in this encounter Visit Diagnoses Not on filedocumented in this encounter Care Teams Cabinetmaker Supervisor Relationship Specialty Start Date End Date Shira Anthony [address] [facility] [address] PCP - General Family Medicine 07/14/13 documented as of this encounter
--- OUTSIDE RECORDS SUMMARY | 2024-12-09 07:46 | XMS_ITS | Encounter Summary ---
Author Organization [place] [address] Care Team Providers Care Malt House Operator Name Role Phone Shira Anthony Primary Care Provider [phone] Reason for Visit * Physical Therapy (Routine) - Authorized Specialty Diagnoses / Procedures Referred By Contmaggy t Referred To Contact Physical Therapy Diagnoses Acute pain of right shoulder Adhesive capsulitis of right shoulder Tendinitis of right rotator cuff Roderick Duffy MD [address] [id number] Phone: tel: fax: [facility] Physical Therapy [place] [address] Phone: tel: fax: Referral ID Status Reason Start Date Expiration Date V isits Requested Visits Authorized [id number] Authorized 11/29/2024 11/29/2025 99 99 Encounter Details Date Type Department Care Team (Latest Contact Info) Description 12/09/2024 7:46 AM EDT - 12/09/2024 11:59 PM EDT Hospital Encounter [facility] Physical Therapy [address] [place] [address] Ever Koroma PT Adhesive capsulitis of right shoulder (Primary Dx) Discharge Disposition: Home or Self Care Social History Tobacco Use Types Packs/Day Years [...] on file documented as of this encounter Medications at Time of Discharge ferrous sulfate 325 mg (65 mg iron) Oral Tablet 03/09/2020 ibuprofen (ADVIL;MOTRIN) 600 mg Oral Tablet Take 1 Tablet by mouth every 6 hours as needed. 60 Tablet 1 10/11/2021 9:32 AM EDT 10/11/2021 meloxicam (MOBIC) 15 mg Oral TabletIndications :Acute pain of right shoulder,Adhesive capsulitis of right shoulder,Tendinit is of right rotator cuff Take 1 Tablet by mouth daily. 30 Tablet 2 11/29/2024 pantoprazole (PROTONIX) 40 mg Oral Tablet, Delayed Release (E.C.) 05/24/2020 documented as of this encounter Discharge Disposition Disposition Code Departure Means Destination Home or Self Care documented in this encounter Progress Notes * Provider, Unknown - 12/09/2024 8:51 AM EDT * Ever Koroma, PT - 12/09/2024 8:00 AM EDT Images from the original note were not included. Physical Therapy Evaluation Patient Name: Vickie Rodgers : 1970 Visit #: 1 Onset Date: 10/09/24 Diagnosis: Acute pain of right shoulder Adhesive capsulitis of right shoulder Tendinitis of right rotator cuff Restrictions/Precautions: [place] Physician: Tati BRUNSON Follow Up: prn Evaluation Date: 12/09/2024 Reassessment Due: 01/09/25 Primary Insurance: [place] [employer] CHOICE PLUS Secondary Insurance: Insurance Authorization: AMB REFERRAL TO PHYSICAL THERAPY Closed (11/29/2024-11/29/2025) Visits Requested Visits Authorized Visits Completed Visits Scheduled 1 05 19 -- Details Referral ID: [id number] Authorization Status Reason: -- Authorization Comments: -- Referred To: -- Referred By: Roderick Duffy MD at [facility], [facility] Creation Date: 11/29/2024 Referral Reasons: -- Referral Order: AMB REFERRAL TO PHYSICAL THERAPY Time In/Out: 8:02/9:00 Timed Treatment Minutes: Manual therapy techniques 20 minutes Total Timed Code Treatment Minutes: 20 Untimed Treatment Minutes: Hot/cold packs, PT Eval, Unattended E-stim , and Vaso Total Treatment Minutes: 58 This evaluation to serve as D/C summary if the patient doesn't return for further treatment. Subjective: Vickie Rodgers is a 54 y.o. female referred by Roderick Duffy, * to outpatient Physical Therapy with a primary diagnosis of: Acute pain of right shoulder Adhesive capsulitis of right shoulder Tendinitis of right rotator cuff About 2 months ago I noticed that I couldn't raise my right arm. History of Injury/Mechanism of Inury: insidious Functional Deficits Since Injury: right UE adls Pain: Current Pain Level: 0-8/10 Location: right shoulder Description: Pain is described as aching, dull, sharp, and variable intensity Increases Pain: adls Decreases Pain: rest and meloxicam Sensation/Neurovascular WFL Diagnostic Tests: X-rays Past Medical History: Diagnosis Date Anemia Past Surgical History: Procedure Laterality Date CHOLECYSTECTOMY 07/11/2020 COLONOSCOPY ENDOMETRIAL ABLATION N/A 10/11/2021 ENDOMETRIAL ABLATION WITH NOVASURE DILATION AND CURETTAGE HYSTEROSCOPY; Surgeon: Jacqueline Fine DO; Location: [facility] MAIN OR; Service: Gynecology TUBAL LIGATION UPPER GASTROINTESTINAL ENDOSCOPY Current Outpatient Medications Medication Sig Dispense Refill ferrous sulfate 325 mg (65 mg iron) Oral Tablet (Patient not taking: Reported on 10/05/2021) ibuprofen (ADVIL;MOTRIN) 600 mg Oral Tablet Take 1 Tablet by mouth every 6 hours as needed. 60 Tablet 1 meloxicam (MOBIC) 15 mg Oral Tablet Take 1 Tablet by mouth daily. 30 Tablet 2 pantoprazole (PROTONIX) 40 mg Oral Tablet, Delayed Release (E.C.) (Patient not taking: Reported on 10/05/2021) No current facility-administered medications for this encounter. Allergies: Mucinex [guaifenesin] Have you received any Speech or Physical therapy this year? [] Yes [x] No Are you currently receiving any Home Health services? [] Yes [x] No Any problems with speech, communication, memory? [] Yes [x] No Barriers to learning? [] Yes [x] No Recent falls? [] Yes [x] No How would you rate your overall health? [] Excellent [x] Good [] Fair [] Poor Social/Function: nursing officer Recreational Activities: building a house Living situation: Patient Goals: Decrease pain and Improve activities of daily living (dress, house cleaning, laundry, etc.) Observation: Posture: forward head, protracted shoulders Objective: FOTO Score & PSFS FOTO??: (1-100) Initial 12/09/2024 Re-Assess Score (Predicted) 51 (72) PSFS: Patient will be able to... (0-10) Reach behind myself 0 Reach a shelf above shoulder height 0 Reach underneath the coffee table to get fallen objects 0 Treatment Evaluation. AROM: Left WNLS Right: Flex 80 Abd 75 Er 50 Ir right SI PROM to right shoulder x 15 minutes Oma flex/abd x 10 minutes E-stim with vaso and ice to right shoulder x 20 minutes HEP Response to HEP instruction/patient education: Instruction/patient education, Verbalized understanding, Returned demonstration Response to treatment: Decreased pain Assessment Vickie Rodgers presents with signs and symptoms consistent with right shoulder adhesive capsulitis. Functional impairments and activity limitations include: right UE adls. Pt would benefit from skilled physical therapy services in order to address Functional Mobility, ROM, and Strength. Rehab Potential: [] Good [x] Fair [] Poor Goals Short Term Goals: (set for 2 weeks) Update/Status Patient will be independent with HEP in order to promote long-term health and reduce risk for injury. [x] Unmet [] Progressing [] Met Usp Goals: (set for 8 weeks) Update/Status Patient's FOTO score will increase to 72 noting an increase in overall function. [x] Unmet [] Progressing [] Met Patient's PSFS score on functional adls will improve from 0/10 to 8/10, noting an improvement in function that is important to patient's quality of life. [x] Unmet [] Progressing [] Met Patient's right shoulder strength will increase to 4/5 in order to perform functional adls without issue. [x] Unmet [] Progressing [] Met Pt will report no higher than 2/10 pain with functional activities for the duration of 1 week in order to perform functional adls. [x] Unmet [] Progressing [] Met Patient's right shoulder AROM will increase to WFLs to allow for safe return to functional adls without issue. [x] Unmet [] Progressing [] Met DASH will improve from 40.8 [x] Unmet [] Progressing [] Met Plan [] Continue per plan of care [] Alter current plan (see comments) [x] Plan of care initiated [] Hold pending MD visit [] Discharge Comments: Patient will be seen 1 times per week for 8 weeks. Treatments to consist of Therapeutic exercise 75166, Manual soft tissue and/or joint mobilization 07312, Patient education, Electrical stimulation (unattended) 55611, Cryotherapy 04867, and Vaso 26205. Patient present with co-morbidities of musculoskeletal conditions and personal factors of N/A that may impact patient/family's ability to Work, Play sports, Attend social activities, Perform ADLs, and Engage in community. During today's evaluation, he/she presented with problem areas in musculoskeletal system, activity limitations, and participation restriction that are impacting functional activities and participation (see objective measures for further detail). Due to indicated course of physical therapy, the patient's presentation is evolving at this time. This patient presented today withlow complexity. Reference Chart: Co-morbidities & Personal Factors Body system elements Presentation Clinical Decision Making Low Evaluation 0 1-2 Stable / Predictable Low Moderate Evaluation 1-2 3 or more Evolving/ Changing Moderate High Evaluation 3 or more 4 or more Unstable/ Unpredictable High Signature: Ever Koroma, PT Date: 12/09/2024 documented in this encounter Consult Notes * Ever Koroma, PT - 12/09/2024 8:00 AM EDT Auto-generated from [employer] Functional Status MeasuresIntake ScoreInterpretation of FS Scores/Stages Value Patient's Physical FS Primary [id number]'s intake functional measure is 51. This FS measure places the patient in Stage 3 and means the patient fair shoulder Risk Adjusted Statistical [id number] the patient's risk-adjustment variables, like-patients nationally had a FS score of 53 , Stage 3, at intake. Risk-Adjustment Criteria Care Type: OrthopedicCondition: ShoulderSeverity: Moderate (Intake FS: 51)Gender: Other/Unavailable Age: 54Acuity: 22 - 90 daysSurgicalCode: Not ApplicableSurgeries: None Medication: YesPrev Treatment: NoSpecific Comorbidities: 18 Rehabilitation Resource PredictorPredicted Value Points of Physical FS [id number] Discharge FS Score72 Visits per Wbxbwnv84 Duration in Days60 Average Satisfaction Score97.4% Interpretation of Predicted Value Given this patient???s risk-adjustment variables, and the actual Intake FS score, FOTO predicts this patient will experience at least an increase in function of 21 points (to 72 or higher), putting them in the Stage 4 level or higher at discharge. Patient Scores [id number] Patient responses to FOTO Shoulder (Primary) were as follows Activity (Question) Response at Intake Status Predicted Reach a shelf that is at shoulder heightSome difficulty--No difficulty Reach across your body to fasten a car's lap strap (safety belt)Much difficulty--No difficulty Place a can of soup (1 lb.) on a shelf at shoulder heightSome difficulty--No difficulty Turn a steering wheel in the opposite direction as your affected armSome difficulty--No difficulty Pulling a chair out from a table using your affected armLittle difficulty--No difficulty Patient responses to Demographics were as follows AttributeAnswerPatient reports other health conditions vmIdoaitwwgCHJ43.0 (Height: 65 inches, Weight: 174 lbs)Exercise prior to onsetPatient completed 20 minutes of exercise at least three (3) times a weekPrescription medicinePatient is taking prescription medicine for this conditionSurgeryPatient reports no surgeries for this primary condition Patient responses to PSFS were as follows AttributeAnswerActivity 1: Reach behind [id number] 2: Reach a shelf above shoulder [id number] 3: Reach underneath the coffee table to get fallen objects0 documented in this encounter Plan of Treatment Upcoming Encounters Date Type Department Care Team (Late st Contact Info) Description 01/21/2025 7:30 AM EDT Appointment [facility] Physical Therapy [address] [address] Ever Koroma, JOANN 01/24/2025 10:30 AM EDT Appointment [facility] Physical Therapy [address] [address] Kyle Lee PTA 01/28/2025 8:45 AM EDT Office Visit [facility] [address] [place], [place] [phone] Roderick Duffy MD [address] [facility] [address] [place] [address] 01/28/2025 9:30 AM EDT Appointment [facility] Physical Therapy [address] [address] Kyle Lee PTA Scheduled Referrals Name Type Priority Associated Diagnoses Orde r Schedule AMB REFERRAL TO PHYSICAL THERAPY Outpatient Referral Routine Acute pain of right shoulder Adhesive capsulitis of right shoulder Tendinitis of right rotator cuff Ordered: 11/29/2024 documented as of this encounter Visit Diagnoses Diagnosis Adhesive capsulitis of right shoulder- Primary Adhesive capsulitis of shoulder documented in this encounter Care Teams Malt House Operator Relationship Specialty Start Date End Date Shira Anthony [facility] [address] [address] PCP - General Family Medicine 07/14/13 documented as of this encounter
--- OUTSIDE RECORDS SUMMARY | 2024-12-10 08:03 | XMS_ITS | Encounter Summary ---
Author Organization [place] [address] Care Team Providers Care Net Washer Name Role Phone Shira Anthony Primary Care Provider [phone] Reason for Referral * Echo (Routine) - Closed Specialty Diagnoses / Procedures Referred By Heather jeong Referred To Contact Radiology Diagnoses Localized edema Procedures EC ECHOCARDIOGRAM COMPLETE W DOPPLER AND COLOR FLOW MAPPING Belkis Maguire APRN [address] [address] [address] [place] [address] Phone: tel: fax: Referral ID Status Reason Start Date Expiration Date Visits Re quested Visits Authorized [id number] Closed 10/26/2024 10/26/2026 1 1 Reason for Visit * Echo (Routine) - Closed Specialty Diagnoses / Procedures Referred By Heather jeong Referred To Contact Radiology Diagnoses Localized edema Procedures EC ECHOCARDIOGRAM COMPLETE W DOPPLER AND COLOR FLOW MAPPING Belkis Maguire APRN [address] [address] [address] [place] [address] Phone: tel: fax: Referral ID Status Reason Start Date Expiration Date Visits Re quested Visits Authorized [id number] Closed 10/26/2024 10/26/2026 1 1 Encounter Details Date Type Department Care Team (Latest Contact Info) Description 12/10/2024 8:03 AM EDT Hospital Encounter [facility] [address] [place] [address] Belkis Maguire, SLOT FLOORPERSON [address] [facility] [address] [place] [address] Localized edema Discharge Disposition: Home or Self Care Social [...] or Self Care documented in this encounter Plan of Treatment Upcoming Encounters Date Type Department Care Team (Late st Contact Info) Description 01/21/2025 7:30 AM EDT Appointment [facility] Physical Therapy [address] [address] Ever Koroma, JOANN 01/24/2025 10:30 AM EDT Appointment [facility] Physical Therapy [address] [address] Kyle Lee PTA 01/28/2025 8:45 AM EDT Office Visit [address] [place] [address] Roderick Duffy MD [address] [id number] 01/28/2025 9:30 AM EDT Appointment [facility] Physical Therapy [address] [phone] Kyle Lee PTA documented as of this encounter Procedures Procedure Name Priority Date/Time Associated Diagnosis Comments EC ECHOCARDIOGRAM COMPLETE W DOPPLER AND COLOR FLOW MAPPING Routine 12/10/2024 9:21 AM EDT Localized edema documented in this encounter Results * EC ECHOCARDIOGRAM COMPLETE W DOPPLER AND COLOR FLOW MAPPING (12/10/2024 9:21 AM EDT) LV DIASTOLIC PLAX 4.6 cm PYRAMIS AORTIC STENOSIS no PYRAMIS MITRAL REGURGITATION trace PYRAMIS Ejection Fraction 55-60% PYRAMIS Anatomical Region Laterality Modality Electrocardiogra phy 12/10/2024 8:15 AM EDT Impressions 12/11/2024 9:31 AM EDT Conclusions * Left ventricular chamber dimension is normal. * Left ventricular function is normal with an estimated ejection fraction of 55-60%. * The left ventricular diastolic function is normal. * Right ventricular systolic function is normal, with a tricuspid annular plane systolic excursion of 2.8 cm and a RV s' of 12.1 cm/s. * Unable to estimate pulmonary arterial systolic pressure due to lack of tricuspid regurgitation jet. Narrative Procedure Note Flip Luis DO - 12/11/2024 IMPRESSION Conclusions * Left ventricular chamber dimension is normal. * Left ventricular function is normal with an estimated ejectionfraction of 55-60%. * The left ventricular diastolic function is normal. * Right ventricular systolic function is normal, with a tricuspidannular plane systolic excursion of 2.8 cm and a RV s' of 12.1 cm/s. * Unable to estimate pulmonary arterial systolic pressure due to lackof tricuspid regurgitation jet. Belkis Maguire SLOT FLOORPERSON IMG ECHO ORDERABLES Final Resu lt documented in this encounter Visit Diagnoses Diagnosis Localized edema Edema documented in this encounter Care Teams Net Washer Relationship Specialty Start Date End Date Shira Anthony [facility] [address] [place] [address] PCP - General Family Medicine 07/14/13 documented as of this encounter
--- OUTSIDE RECORDS SUMMARY | 2024-12-10 08:04 | XMS_ITS | Encounter Summary ---
Author Organization [place] [address] Care Team Providers Care Ham Facer Name Role Phone Shira Anthony Primary Care Provider [phone] Reason for Referral * Mammography (Routine) - Pending Review Specialty Diagnoses / Procedures Referred By Heather jeong Referred To Contact Radiology Diagnoses Encounter for screening mammogram for malignant neoplasm of breast Procedures MM MAMMO DIGITAL NISHANT SCREEN Belkis Palmer, BIOSTATISTICS TEACHER [address] [address] [address] [place] [address] Phone: tel: fax: Referral ID Status Reason Start Date Expiration Date V isits Requested Visits Authorized [id number] Pending Review 10/26/2024 10/26/2026 1 1 Reason for Visit * Mammography (Routine) - Pending Review Specialty Diagnoses / Procedures Referred By Heather jeong Referred To Contact Radiology Diagnoses Encounter for screening mammogram for malignant neoplasm of breast Procedures MM MAMMO DIGITAL NISHANT SCREEN Belkis Palmer, BIOSTATISTICS TEACHER [address] [address] [address] [place] [address] Phone: tel: fax: Referral ID Status Reason Start Date Expiration Date V isits Requested Visits Authorized [id number] Pending Review 10/26/2024 10/26/2026 1 1 Encounter Details Date Type Department Care Team (Latest Contact Info) Description 12/10/2024 8:04 AM EDT - 12/10/2024 11:59 PM EDT Hospital Encounter [facility] Mammography [address] [address] [address] Belkis Maguire, BIOSTATISTICS TEACHER [address] [place] [address] Encounter for screening mammogram for malignant neoplasm of breast Discharge Disposition: Home or Self Care Social [...] Info) Description 01/21/2025 7:30 AM EDT Appointment [facility] Physical Therapy [address] [address] Ever Koroma, JOANN 01/24/2025 10:30 AM EDT Appointment [facility] Physical Therapy [address] [address] Kyle Lee PTA 01/28/2025 8:45 AM EDT Office Visit [facility] [address] [place] [address] Roderick Duffy MD [address] [facility] [place] [address] 01/28/2025 9:30 AM EDT Appointment [facility] Physical Therapy [address] [address] Kyle Lee PTA documented as of this encounter Procedures Procedure Name Priority Date/Time Associated Diagnosis Comments MM MAMMO DIGITAL NISHANT SCREEN BILAT Routine 12/10/2024 9:01 AM EDT Encounter for screening mammogram for malignant neoplasm of breast documented in this encounter Results * MM MAMMO DIGITAL NISHANT SCREEN BILAT (12/10/2024 9:01 AM EDT) Anatomical Region Laterality Modality Breast Bilateral Mammography 12/10/2024 9:01 AM EDT Impressions 12/10/2024 9:34 AM EDT Negative ([id number]) RECOMMENDATION: Routine Screening Mammogram in 1 Year Bilateral . . COMMENTS: DISCLAIMER *The patient was notified by MyChart or mail of the results for this examination. *The patient's information was entered into a reminder system with a target due date for the next breast imaging, in accordance with the [employer] and the Society of Breast Imaging recommendations. *Breast Imaging has a false negative rate of 15%. *Any patient with a palpable abnormality, unexplained by breast imaging, should be managed on a clinical basis by the attending physician. Narrative 12/10/2024 9:34 AM EDT EXAM: MM MAMMO DIGITAL NISHANT SCREEN BILAT EXAM DATE: 12/10/2024 9:01 AM INDICATION: Z12.31-Encounter for screening mammogram for malignant neoplasm of [id number] COMPARISON STUDIES: Compared with prior studies the most recent being 06/13/2023 MM MAMMO DIGITAL NISHANT SCREEN BILAT at [facility] 09/22/2020 MM MAMMO DIGITAL NISHANT SCREEN BILAT at [facility] TISSUE DENSITY: The breasts are heterogeneously dense, which may obscure small masses. FINDINGS: No mammographic evidence of malignancy. Procedure Note Stephani Cruz MD - 12/10/2024 EXAM: MM MAMMO DIGITAL NISHANT SCREEN BILAT EXAM DATE: 12/10/2024 9:01 AM INDICATION: Z12.31-Encounter for screening mammogram for malignantneoplasm of [id number]-[id number] COMPARISON STUDIES: Compared with prior studies the most recent being 06/13/2023 MM MAMMO DIGITAL NISHANT SCREEN BILAT at [facility] 09/22/2020 MM MAMMO DIGITAL NISHANT SCREEN BILAT at [facility] TISSUE DENSITY: The breasts are heterogeneously dense, which may obscuresmall masses. FINDINGS: No mammographic evidence of malignancy. IMPRESSION: Negative ([id number]) RECOMMENDATION: Routine Screening Mammogram in 1 Year Bilateral . . COMMENTS: DISCLAIMER *The patient was notified by MyChart or mail of the results for this examination. *The patient's information was entered into a reminder system with atarget due date for the next breast imaging, in accordance with the [employer] and the Society of Breast Imaging recommendations. *Breast Imaging has a false negative rate of 15%. *Any patient with a palpable abnormality, unexplained by breast imaging,should be managed on a clinical basis by the attending physician. Belkis Maguire BIOSTATISTICS TEACHER IMG MAMMOGRAPHY ORDERABLES Fin al Result documented in this encounter Visit Diagnoses Diagnosis Encounter for screening mammogram for malignant neoplasm of breast Other screening mammogram documented in this encounter Care Teams Ham Facer Relationship Specialty Start Date End Date Shira Anthony [address] [place] [address] [address] [place] [address] [address] PCP - General Family Medicine 07/14/13 documented as of this encounter
--- OUTSIDE RECORDS SUMMARY | 2024-12-16 07:30 | XMS_ITS | Encounter Summary ---
Author Organization [place] [address] Care Team Providers Care Graphics Software Engineer Name Role Phone Shira Anthony Primary Care Provider [phone] Reason for Visit * Physical Therapy (Routine) - Authorized Specialty Diagnoses / Procedures Referred By Contmaggy t Referred To Contact Physical Therapy Diagnoses Acute pain of right shoulder Adhesive capsulitis of right shoulder Tendinitis of right rotator cuff Roderick Duffy MD [address] [phone] Phone: tel: fax: [facility] [place] [address] Phone: tel: fax: Referral ID Status Reason Start Date Expiration Date V isits Requested Visits Authorized [id number] Authorized 11/29/2024 11/29/2025 99 99 Encounter Details Date Type Department Care Team (Latest Contact Info) Description 12/16/2024 7:30 AM EDT - 12/16/2024 11:59 PM EDT Hospital Encounter [facility] Physical Therapy [address] [place] [address] Ever Koroma PT Adhesive capsulitis of right [...] documented in this encounter Progress Notes * Calixto Contreras - 12/16/2024 8:00 AM EDT Program_ID:[id number] Access Code: [email or web address] URL: [email or web address] Date: 12-16-2024 Prepared By: Ever Koroma Program Notes Exercises - Standing Overhead Shoulder External Rotation Stretch with Towel - 2-3 x daily - 7 x weekly - 3 sets - 10 reps - Standing Shoulder Internal Rotation Stretch with Hands Behind Back - 2-3 x daily - 7 x weekly - 3 sets - 10 reps - Shoulder Flexion Wall Slide with Towel - 2-3 x daily - 7 x weekly - 3 sets - 10 reps - Scaption Wall Slide with Towel - 2-3 x daily - 7 x weekly - 3 sets - 10 reps * Ever Koroma PT - 12/16/2024 7:30 AM EDT Images from the original note were not included. Physical Therapy Treatment Note Patient Name: Vickie Rodgers : 1970 Visit #: 2 Onset Date: 10/09/24 Diagnosis: Acute pain of right shoulder Adhesive capsulitis of right shoulder Tendinitis of right rotator cuff Restrictions/Precautions: [place] Physician: Tati BRUNSON Follow Up: prn Evaluation Date: 12/09/2024 Reassessment Due: 01/09/25 Primary Insurance: [employer]/[facility] CHOICE PLUS Secondary Insurance: Insurance Authorization: AMB REFERRAL TO PHYSICAL THERAPY Authorized (11/29/2024-11/29/2025) Visits Requested Visits Authorized Visits Completed Visits Scheduled 99 99 2 6 Details Referral ID: [id number] Authorization Status Reason: Covered Benefit Authorization Comments: -- Referred To: SUDARSHAN BOO PT Referred By: R[facility]ick [facility] Creation Date: 11/29/2024 Referral Reasons: -- Referral Order: AMB REFERRAL TO PHYSICAL THERAPY Time In/Out: 7:30/8:22 Timed Treatment Minutes: Manual therapy techniques 20 minutes Therapeutic Exercise 10 minutes Total Timed Code Treatment Minutes: 30 Untimed Treatment Minutes: Hot/cold packs and Vaso Total Treatment Minutes: 50 Medication Changes: Pain: 0-6/ depending on activity Location: right shoulder Description: Pain is described as aching, dull, sharp, and variable intensity Subjective The patient reports the shoulder is a little better, but still painful at times. I am doing the rope and yuliya at home several times a day. Objective: Treatment UBE x 4 minutes (2' fwd/ 2' bkwd) PROM to right shoulder x 15 minutes Yuliya flex/abd x 10 minutes Exercises - Standing Overhead Shoulder External Rotation Stretch with Towel - 2-3 x daily - 7 x weekly - 3 sets - 10 reps - Standing Shoulder Internal Rotation Stretch with Hands Behind Back - 2-3 x daily - 7 x weekly - 3 sets - 10 reps - Shoulder Flexion Wall Slide with Towel - 2-3 x daily - 7 x weekly - 3 sets - 10 reps - Scaption Wall Slide with Towel - 2-3 x daily - 7 x weekly - 3 sets - 10 reps E-stim with vaso and ice to right shoulder x 20 minutes HEP Assessment The patient tolerated RX well today. Goals Short Term Goals: (set for 2 weeks) Update/Status Patient will be independent with HEP in order to promote long-term health and reduce risk for injury. [x] Unmet [] Progressing [] Met Alf Goals: (set for 8 weeks) Update/Status Patient's [...] [x] Unmet [] Progressing [] Met Plan [x] Continue per plan of care [] Alter current plan (see comments) [x] Plan of care initiated [] Hold pending MD visit [] Discharge Comments: This note to serve as a discharge if the patient does not return. Electronically signed by: Signed: Ever Koroma PT Date: 12/16/2024 documented in this encounter Plan of Treatment Upcoming Encounters Date Type Department Care Team (Late st Contact Info) Description 01/21/2025 7:30 AM EDT Appointment [facility] Physical Therapy [address] [place], [place] [address] Ever Koroma, PT 01/24/2025 10:30 AM EDT Appointment [facility] Physical Therapy [address] [place] [address] Kyle Lee PTA 01/28/2025 8:45 AM EDT Office Visit [address] [address] Roderick Duffy MD [address] [place] [address] 01/28/2025 9:30 AM EDT Appointment [facility] Physical Therapy [address] [address] [address] Kyle Lee PTA documented as of this encounter Visit Diagnoses Diagnosis Adhesive capsulitis of right shoulder- Primary Adhesive capsulitis of shoulder documented in this encounter Care Teams Graphics Software Engineer Relationship Specialty Start Date End Date Shira Anthony [address] [facility] [address] [place] [address] PCP - General Family Medicine 07/14/13 documented as of this encounter
--- OUTSIDE RECORDS SUMMARY | 2024-12-20 08:00 | XMS_ITS | Encounter Summary ---
Author Organization [place] [address] Care Team Providers Care Laboratory Miller Name Role Phone Shira Anthony Primary Care Provider [phone] Reason for Visit * Physical Therapy (Routine) - Authorized Specialty Diagnoses / Procedures Referred By Contmaggy t Referred To Contact Physical Therapy Diagnoses Acute pain of right shoulder Adhesive capsulitis of right shoulder Tendinitis of right rotator cuff Roderick Duffy MD [address] [address] Phone: tel: fax: [facility] [place] [address] Phone: tel: fax: Referral ID Status Reason Start Date Expiration Date V isits Requested Visits Authorized [id number] Authorized 11/29/2024 11/29/2025 99 99 Encounter Details Date Type Department Care Team (Latest Contact Info) Description 12/20/2024 8:00 AM EDT - 12/20/2024 11:59 PM EDT Hospital Encounter [facility] Physical Therapy [address] [place] [phone] Ever Koroma PT Adhesive capsulitis of right [...] documented in this encounter Progress Notes * Ever Koroma, PT - 12/20/2024 8:00 AM EDT Images from the original note were not included. Physical Therapy Treatment Note Patient Name: Vickie Rodgers : 1970 Visit #: 3 Onset Date: 10/09/24 Diagnosis: Acute pain of right shoulder Adhesive capsulitis of right shoulder Tendinitis of right rotator cuff Restrictions/Precautions: [place] Physician: Tati BRUNSON Follow Up: prn Evaluation Date: 12/09/2024 Reassessment Due: 01/09/25 Primary Insurance: [employer]/[facility] CHOICE PLUS Secondary Insurance: Insurance Authorization: AMB REFERRAL TO PHYSICAL THERAPY Authorized (11/29/2024-11/29/2025) Visits Requested Visits Authorized Visits Completed Visits Scheduled 99 99 3 5 Details Referral ID: [id number] Authorization Status Reason: Covered Benefit Authorization Comments: -- Referred To: SUDARSHAN BOO PT Referred By: Roderick Duffy MD at [facility], [facility] Creation Date: 11/29/2024 Referral Reasons: -- Referral Order: AMB REFERRAL TO PHYSICAL THERAPY Time In/Out: 8:00/8:58 Timed Treatment Minutes: Manual therapy techniques 35 minutes Total Timed Code Treatment Minutes: 35 Untimed Treatment Minutes: Hot/cold packs and Unattended E-stim Total Treatment Minutes: 55 Medication Changes: Pain: 0-6/10 depending on arm position Location: right shoulder Description: Pain is described as aching, dull, sharp, and variable intensity Subjective The patient reports I have been doing the exercises, it's getting better. Objective: Treatment UBE x 4 minutes (2' fwd/ 2' bkwd) PROM to right shoulder x 30 minutes Exercises - Standing Overhead Shoulder External [...] injury. [x] Unmet [] Progressing [] Met Social Media Editor Goals: (set for 8 weeks) Update/Status Patient's [...] [x] Unmet [] Progressing [] Met Plan [x]Continue per plan of care [] Alter current plan (see comments) [x] Plan of care initiated [] Hold pending MD visit [] Discharge Comments: This note to serve as a discharge if the patient does not return. Electronically signed by: Signed: Ever Koroma, PT Date: 12/20/2024 documented in this encounter Plan of Treatment Upcoming Encounters Date Type Department Care Team (Late st Contact Info) Description 01/21/2025 7:30 AM EDT Appointment [facility] Physical Therapy [address] [place] [address] Ever oKroma, PT 01/24/2025 10:30 AM EDT Appointment [facility] [address] [facility] [place] [address] Kyle Lee PTA 01/28/2025 8:45 AM EDT Office Visit [facility] [address] [place] [address] Roderick Duffy MD [address] [address] 01/28/2025 9:30 AM EDT Appointment [facility] [address] [facility] [place] [address] Kyle Lee, MOOSE documented as of this encounter Visit Diagnoses Diagnosis Adhesive capsulitis of right shoulder- Primary Adhesive capsulitis of shoulder documented in this encounter Care Teams Laboratory Miller Relationship Specialty Start Date End Date Shira Anthony [facility] [place] [facility] [address] [place] [address] PCP - General Family Medicine 07/14/13 documented as of this encounter
--- OUTSIDE RECORDS SUMMARY | 2024-12-24 07:59 | XMS_ITS | Encounter Summary ---
Author Organization [place] [address] Care Team Providers Care Chief Clerk Name Role Phone Shira Anthony Primary Care Provider [phone] Reason for Visit * Physical Therapy (Routine) - Authorized Specialty Diagnoses / Procedures Referred By Contmaggy t Referred To Contact Physical Therapy Diagnoses Acute pain of right shoulder Adhesive capsulitis of right shoulder Tendinitis of right rotator cuff Roderick Duffy MD [address] [phone] Phone: tel: fax: [facility] Physical [place] [address] Phone: tel: fax: Referral ID Status Reason Start Date Expiration Date V isits Requested Visits Authorized [id number] Authorized 11/29/2024 11/29/2025 99 99 Encounter Details Date Type Department Care Team (Latest Contact Info) Description 12/24/2024 7:59 AM EDT - 12/24/2024 11:59 PM EDT Hospital Encounter [facility] Physical Therapy [address] [place] [phone] Ever Koroma PT Adhesive capsulitis of right [...] Progress Notes * Ever Koroma, PT - 12/24/2024 8:00 AM EDT Images from the original note were not included. Physical Therapy Treatment Note Patient Name: Vickie Rodgers : 1970 Visit #: 4 Onset Date: 10/09/24 Diagnosis: Acute pain of right shoulder Adhesive capsulitis of right shoulder Tendinitis of right rotator cuff Restrictions/Precautions: [place] Physician: Tati BRUNSON Follow Up: prn Evaluation Date: 12/09/2024 Reassessment Due: 01/09/25 Primary Insurance: [employer]/[facility] CHOICE PLUS Secondary Insurance: Insurance Authorization: AMB REFERRAL TO PHYSICAL THERAPY Authorized (11/29/2024-11/29/2025) Visits Requested Visits Authorized Visits Completed Visits Scheduled 99 99 4 4 Details Referral ID: [id number] Authorization Status Reason: Covered Benefit Authorization Comments: -- Referred To: SUDARSHAN BOO PT Referred By: Roderick Duffy MD at [facility], [facility] Creation Date: 11/29/2024 Referral Reasons: -- Referral Order: AMB REFERRAL TO PHYSICAL THERAPY Time In/Out: 8:00/8:45 Timed Treatment Minutes: Manual therapy techniques 20 minutes Total Timed Code Treatment Minutes: 20 Untimed Treatment Minutes: Hot/cold packs and Vaso Total Treatment Minutes: 40 Medication Changes: Pain: 4 Location: right shoulder Description: Pain is described as aching, dull, sharp, and variable intensity Subjective The patient reports the shoulder is feeling better. Objective: Treatment UBE x 4 minutes [...] injury. [x] Unmet [] Progressing [] Met Senior Care Goals: (set for 8 weeks) Update/Status Patient's [...] signed by: Signed: Ever Koroma PT Date: 12/24/2024 documented in this encounter Plan of Treatment Upcoming Encounters Date Type Department Care Team (Late st Contact Info) Description 01/21/2025 7:30 AM EDT Appointment [facility] Physical Therapy [address] [place] [address] Ever Koroma PT 01/24/2025 10:30 AM EDT Appointment [facility] Physical Therapy [address] [place] [address] Kyle Lee PTA 01/28/2025 8:45 AM EDT Office Visit [facility] [address] [place], [place] [phone] Roderick Duffy MD [address] [address] 01/28/2025 9:30 AM EDT Appointment [facility] Physical Therapy [address] [place] [address] Kyle Lee PTA documented as of this encounter Visit Diagnoses Diagnosis Adhesive capsulitis of right shoulder- Primary Adhesive capsulitis of shoulder documented in this encounter Care Teams Chief Clerk Relationship Specialty Start Date End Date Shira Anthony [address] [place] [facility] [address] [place] [address] PCP - General Family Medicine 07/14/13 documented as of this encounter
--- OUTSIDE RECORDS SUMMARY | 2024-12-27 07:54 | XMS_ITS | Encounter Summary ---
Author Organization [place] [address] Care Team Providers Care Centrifugal Machine Tender Name Role Phone Shira Anthony Primary Care Provider [phone] Reason for Visit * Physical Therapy (Routine) - Authorized Specialty Diagnoses / Procedures Referred By Contmaggy t Referred To Contact Physical Therapy Diagnoses Acute pain of right shoulder Adhesive capsulitis of right shoulder Tendinitis of right rotator cuff Roderick Duffy MD [address] [address] Phone: tel: fax: [facility] Physical Therapy [address] [place] [address] Phone: tel: fax: Referral ID Status Reason Start Date Expiration Date V isits Requested Visits Authorized [id number] Authorized 11/29/2024 11/29/2025 99 99 Encounter Details Date Type Department Care Team (Latest Contact Info) Description 12/27/2024 7:54 AM EDT - 12/27/2024 11:59 PM EDT Hospital Encounter [facility] Physical Therapy [address] [place] [phone] Kyle Lee PTA Adhesive capsulitis of right shoulder (Primary Dx) [...] documented in this encounter Progress Notes * Kyle Lee PTA - 12/27/2024 8:00 AM EDT Images from the original note were not included. Physical Therapy Treatment Note Patient Name: Vickie Rodgers : 1970 Visit #: 5 Onset Date: 10/09/24 Diagnosis: Acute pain of right shoulder Adhesive capsulitis of right shoulder Tendinitis of right rotator cuff Restrictions/Precautions: [place] Physician: Tati BRUNSON Follow Up: prn Evaluation Date: 12/09/2024 Reassessment Due: 01/09/25 Primary Insurance: [employer]/[facility] CHOICE PLUS Secondary Insurance: Insurance Authorization: AMB REFERRAL TO PHYSICAL THERAPY Authorized (11/29/2024-11/29/2025) Visits Requested Visits Authorized Visits Completed Visits Scheduled 99 99 4 4 Details Referral ID: [id number] Authorization Status Reason: Covered Benefit Authorization Comments: -- Referred To: SUDARSHAN BOO PT Referred By: Roderick Duffy MD at [facility], [facility] Creation Date: 11/29/2024 Referral Reasons: -- Referral Order: AMB REFERRAL TO PHYSICAL THERAPY Time In/Out: 7:54 am / 8:58 am (64 minutes) Medication Changes: None Pain: 0 Location: right shoulder Description: Pain is described as aching, dull, sharp, and variable intensity Subjective Pt reports it's attached . Pain is 0/10 at rest, but gets up to 8/10 when we work it . Objective: FOTO Score & PSFS FOTO??: (1-100) Initial 12/09/2024 Re-Assess Score (Predicted) 51 (72) PSFS: Patient will be able to... (0-10) Reach behind myself 0 Reach a shelf above shoulder height 0 Reach underneath the coffee table to get fallen objects 0 Treatment UBE x 4 minutes (2' fwd/ 2' bkwd) PROM to right shoulder x 21 minutes Exercises - Standing Overhead Shoulder ER Stretch with Towel - x 10 - Standing Shoulder IR Stretch with Hands Behind Back - x 10 - Shoulder Flexion Wall Slide with Towel - x 10 - Scaption Wall Slide with Towel - x 10 VASO and ICE to right shoulder in longsitting with head of mat raised x 20 minutes (performed without ESTIM today) HEP Therapeutic Exercise: x 13 minutes Manual Therapy: x 21 minutes Modalities: x 20 minutes Total Timed Treatment: x 34 minutes Assessment Pt tolerated session well. Pt most tight into IR with manual stretching. Performed only VASO and ICE on this date. Goals Short Term Goals: (set for 2 weeks) Update/Status Patient will be independent with HEP in order to promote long-term health and reduce risk for injury. [x] Unmet [] Progressing [] Met Fci Goals: (set for 8 weeks) Update/Status Patient's [...] does not return. Electronically signed by: Signed: Kyle Lee PTA Date: 12/27/2024 Charges: TE x 1, MANUAL x 1, VASO, ICE documented in this encounter Plan of Treatment Upcoming Encounters Date Type Department Care Team (Late st Contact Info) Description 01/21/2025 7:30 AM EDT Appointment [facility] Physical Therapy [address] [place] [address] Ever Koroma PT 01/24/2025 10:30 AM EDT Appointment [facility] Physical Therapy [address] [place] [address] Kyle Lee PTA 01/28/2025 8:45 AM EDT Office Visit [address] [phone] Roderick Duffy MD [address] [address] 01/28/2025 9:30 AM EDT Appointment [facility] Physical Therapy [address] [address] Kyle Lee PTA documented as of this encounter Visit Diagnoses Diagnosis Adhesive capsulitis of right shoulder- Primary Adhesive capsulitis of shoulder documented in this encounter Care Teams Centrifugal Machine Tender Relationship Specialty Start Date End Date Shira Anthony [address] [facility] [address] [facility] [place] [id number] PCP - General Family Medicine 07/14/13 documented as of this encounter
--- OUTSIDE RECORDS SUMMARY | 2024-12-31 07:50 | XMS_ITS | Encounter Summary ---
Author Organization [place] [address] Care Team Providers Care Electro Mechanical Solar Technician Name Role Phone Shira Anthony Primary Care Provider [phone] Reason for Visit * Physical Therapy (Routine) - Authorized Specialty Diagnoses / Procedures Referred By Contmaggy t Referred To Contact Physical Therapy Diagnoses Acute pain of right shoulder Adhesive capsulitis of right shoulder Tendinitis of right rotator cuff Roderick Duffy MD [address] [address] Phone: tel: fax: [facility] Physical Therapy [address] [place] [address] Phone: tel: fax: Referral ID Status Reason Start Date Expiration Date V isits Requested Visits Authorized [id number] Authorized 11/29/2024 11/29/2025 99 99 Encounter Details Date Type Department Care Team (Latest Contact Info) Description 12/31/2024 7:50 AM EDT - 12/31/2024 11:59 PM EDT Hospital Encounter [facility] Physical Therapy [address] [place] [phone] Kyle Lee PTA Adhesive capsulitis of right [...] Progress Notes * Kyle Lee PTA - 12/31/2024 8:00 AM EDT Images from the original note were not included. Physical Therapy Treatment Note Patient Name: Vickie Rodgers : 1970 Visit #: 6 Onset Date: 10/09/24 Diagnosis: Acute pain of right shoulder Adhesive capsulitis of right shoulder Tendinitis of right rotator cuff Restrictions/Precautions: [place] Physician: Tati BRUNSON Follow Up: prn Evaluation Date: 12/09/2024 Reassessment Due: 01/09/25 Primary Insurance: [employer]/[facility] CHOICE PLUS Secondary Insurance: Insurance Authorization: AMB REFERRAL TO PHYSICAL THERAPY Authorized (11/29/2024-11/29/2025) Visits Requested Visits Authorized Visits Completed Visits Scheduled 99 99 5 3 Details Referral ID: [id number] Authorization Status Reason: Covered Benefit Authorization Comments: -- Referred To: SUDARSHAN BOO PT Referred By: Roderick Duffy MD at [facility], [facility] Creation Date: 11/29/2024 Referral Reasons: -- Referral Order: AMB REFERRAL TO PHYSICAL THERAPY Time In/Out: 7:53 am / 9:07 am (74 min) Medication Changes: None Pain: 0 Location: right shoulder Description: Pain is described as aching, dull, sharp, and variable intensity Subjective Pt reports no pain at rest, but it can go up to Objective: FOTO Score & PSFS FOTO??: (1-100) Initial 12/09/2024 Re-Assess Score (Predicted) 51 (72) PSFS: Patient will be able to... (0-10) Reach behind myself 0 Reach a shelf above shoulder height 0 Reach underneath the coffee table to get fallen objects 0 Treatment UBE x 4 minutes (2' fwd/ 2' bkwd) PROM to right shoulder x 29 minutes Exercises - Standing Overhead Shoulder ER Stretch with Towel - x 10 - Standing Shoulder IR Stretch with Hands Behind Back - x 10 - Shoulder Flexion Wall Slide with Towel - x 10 - Scaption Wall Slide with Towel - x 10 RESUME ESTIM? VASO and ICE to right shoulder in longsitting with head of mat raised x 20 minutes. HEP Therapeutic Exercise: x 15 minutes Manual Therapy: x 29 minutes Modalities: x 20 minutes Total Timed Treatment: x 44 minutes Assessment Pt tolerated rx well. Noted increased ROM with manual therapy and self-stretches. Goals Short Term Goals: (set for 2 weeks) Update/Status Patient will be independent with HEP in order to promote long-term health and reduce risk for injury. [x] Unmet [] Progressing [] Met Septic Tank Cleaner Goals: (set for 8 weeks) Update/Status Patient's [...] signed by: Signed: Kyle Lee PTA Date: 12/31/2024 Charges: MANUAL x 2, TE x 1, VASO, ICE documented in this encounter Miscellaneous Notes * Addendum Note - Kyle Lee PTA - 12/31/2024 8:00 AM EDTEncounter addended by: Kyle Lee PTA on: 12/31/2024 9:04 AM Actions taken: Clinical Note Signed documented in this encounter Plan of Treatment Upcoming Encounters Date Type Department Care Team (Late st Contact Info) Description 01/21/2025 7:30 AM EDT Appointment [facility] [place] [address] Ever Koroma PT 01/24/2025 10:30 AM EDT Appointment [facility] Physical Therapy [address] [place] [address] Kyle Lee PTA 01/28/2025 8:45 AM EDT Office Visit [place] [phone] Roderick Duffy MD [address] [facility] [address] [place], [place] [phone] 01/28/2025 9:30 AM EDT Appointment [facility] Physical Therapy [place] [address] Kyle Lee PTA documented as of this encounter Visit Diagnoses Diagnosis Adhesive capsulitis of right shoulder- Primary Adhesive capsulitis of shoulder documented in this encounter Care Teams Electro Mechanical Solar Technician Relationship Specialty Start Date End Date Shira Anthony [address] [facility] [address] [place] [address] PCP - General Family Medicine 07/14/13 documented as of this encounter
--- OUTSIDE RECORDS SUMMARY | 2025-01-03 07:50 | XMS_ITS | Encounter Summary ---
Author Organization [facility] [address] Care Team Providers Care Consumer Experience Consultant Name Role Phone Shira Anthony Primary Care Provider [phone] Reason for Visit * Physical Therapy (Routine) - Authorized Specialty Diagnoses / Procedures Referred By Contmaggy t Referred To Contact Physical Therapy Diagnoses Acute pain of right shoulder Adhesive capsulitis of right shoulder Tendinitis of right rotator cuff Roderick Duffy MD [address] [id number] Phone: tel: fax: [facility] [place] [address] Phone: tel: fax: Referral ID Status Reason Start Date Expiration Date V isits Requested Visits Authorized [id number] Authorized 11/29/2024 11/29/2025 99 99 Encounter Details Date Type Department Care Team (Latest Contact Info) Description 01/03/2025 7:50 AM EDT - 01/03/2025 11:59 PM EDT Hospital Encounter [facility] Physical Therapy [address] [place] [phone] Ever Koroma PT Adhesive capsulitis of right [...] Progress Notes * Kyle Lee PTA - 01/03/2025 8:00 AM EDT Images from the original note were not included. Physical Therapy Treatment Note Patient Name: Vickie Rodgers : 1970 Visit #: 7 Onset Date: 10/09/24 Diagnosis: Acute pain of right shoulder Adhesive capsulitis of right shoulder Tendinitis of right rotator cuff Restrictions/Precautions: [place] Physician: Tati BRUNSON Follow Up: prn Evaluation Date: 12/09/2024 Reassessment Due: 01/09/25 Primary Insurance: [employer]/[facility] CHOICE PLUS Secondary Insurance: Insurance Authorization: AMB REFERRAL TO PHYSICAL THERAPY Authorized (11/29/2024-11/29/2025) Visits Requested Visits Authorized Visits Completed Visits Scheduled 99 [phone] 1 Details Referral ID: [id number] Authorization Status Reason: Covered Benefit Authorization Comments: -- Referred To: SUDARSHAN BOO PT Referred By: Roderick Duffy MD at [facility], [facility] Creation Date: 11/29/2024 Referral Reasons: -- Referral Order: AMB REFERRAL TO PHYSICAL THERAPY Time In/Out: 7:56 am / 9:12 am (76 min) Medication Changes: None Pain: 5 Location: right shoulder Description: Pain is described as aching, dull, sharp, and variable intensity Subjective Pt reports no pain upon arrival. It get up to 5-6/10 with manual, but, no where near what it used to be (pain) . Objective: FOTO Score & PSFS FOTO??: (1-100) Initial 12/09/2024 Re-Assess Score (Predicted) 51 (72) PSFS: Patient will be able to... (0-10) Reach behind myself 0 Reach a shelf above shoulder height 0 Reach underneath the coffee table to get fallen objects 0 Treatment UBE x 4 minutes (2' fwd/ 2' bkwd) PROM to right shoulder x 19 minutes Exercises: - Supine Overhead Wand - 3# 10 sec x 10 - Standing Overhead Shoulder ER Stretch with [...] x 20 minutes. HEP Therapeutic Exercise: x 30 minutes Manual Therapy: x 19 minutes Modalities: x 20 minutes Total Timed Treatment: x 39 minutes Assessment Pt tolerated session well. Pt was a bit more tight today with manual, maría elena into Goals Short Term Goals: (set for 2 weeks) Update/Status Patient will be independent with HEP in order to promote long-term health and reduce risk for injury. [x] Unmet [] Progressing [] Met Sewing Pattern Layout Technician Goals: (set for 8 weeks) Update/Status Patient's [...] signed by: Signed: Kyle Lee PTA Date: 01/03/2025 Charges: TE x 2, MANUAL, VASO, ICE documented in this encounter Plan of Treatment Upcoming Encounters Date Type Department Care Team (Late st Contact Info) Description 01/21/2025 7:30 AM EDT Appointment [facility] Physical Therapy [address]ie Sarah [address] [place] [address] Ever Koroma PT 01/24/2025 10:30 AM EDT Appointment [facility] Physical Therapy [address] Sarah Lindojennifer Hern[place] [place] [address] Kyle Lee PTA 01/28/2025 8:45 AM EDT Office Visit [address] [phone] Roderick Duffy MD [address] [phone] 01/28/2025 9:30 AM EDT Appointment [facility] Physical Therapy [address] Smith [address] [place] [place] [address] Kyle Lee PTA documented as of this encounter Visit Diagnoses Diagnosis Adhesive capsulitis of right shoulder- Primary Adhesive capsulitis of shoulder documented in this encounter Care Teams Consumer Experience Consultant Relationship Specialty Start Date End Date Shira Anthony [address] [place] [facility] [address] [place] [address] PCP - General Family Medicine 07/14/13 documented as of this encounter
--- OUTSIDE RECORDS SUMMARY | 2025-01-07 07:53 | XMS_ITS | Encounter Summary ---
Author Organization [place] [address] Care Team Providers Care Dry Color Tester Name Role Phone Shira Anthony Primary Care Provider [phone] Reason for Visit * Physical Therapy (Routine) - Authorized Specialty Diagnoses / Procedures Referred By Contmaggy t Referred To Contact Physical Therapy Diagnoses Acute pain of right shoulder Adhesive capsulitis of right shoulder Tendinitis of right rotator cuff Roderick Duffy MD [address] [address] Phone: tel: fax: [facility] [place] [address] Phone: tel: fax: Referral ID Status Reason Start Date Expiration Date V isits Requested Visits Authorized [id number] Authorized 11/29/2024 11/29/2025 99 99 Encounter Details Date Type Department Care Team (Latest Contact Info) Description 01/07/2025 7:53 AM EDT - 01/07/2025 11:59 PM EDT Hospital Encounter [facility] Physical Therapy [address] [place] [address] Ever Koroma PT Adhesive capsulitis of right [...] Progress Notes * Ever Koroma, PT - 01/07/2025 8:00 AM EDT Images from the original note were not included. Physical Therapy Reassessment Note Patient Name: Vickie Rodgers : 1970 Visit #: 8 Onset Date: 10/09/24 Diagnosis: Acute pain of right shoulder Adhesive capsulitis of right shoulder Tendinitis of right rotator cuff Restrictions/Precautions: [place] Physician: Tati BRUNSON Follow Up: prn Evaluation Date: 12/09/2024 Reassessment Due: 02/09/25 Primary Insurance: [employer]/[facility] CHOICE PLUS Secondary Insurance: Insurance Authorization: AMB REFERRAL TO PHYSICAL THERAPY Authorized (11/29/2024-11/29/2025) Visits Requested Visits Authorized Visits Completed Visits Scheduled [phone] 5 Details Referral ID: [id number] Authorization Status Reason: Covered Benefit Authorization Comments: -- Referred To: SUDARSHAN BOO PT Referred By: Roderick Duffy MD at [facility], [facility] Creation Date: 11/29/2024 Referral Reasons: -- Referral Order: AMB REFERRAL TO PHYSICAL THERAPY Time In/Out: 7:58/8:49 Timed Treatment Minutes: Manual therapy techniques 25 minutes Therapeutic Exercise 4 minutes Total Timed Code Treatment Minutes: 29 Untimed Treatment Minutes: Hot/cold packs and Vaso Total Treatment Minutes: 49 Medication Changes: Pain: 0-3/10 depending on activity Location: right shoulder Description: Pain is described as aching, dull, sharp, and variable intensity Subjective The patient reports most of the time it's a 0/10. It's a 3/10 with certain movements. Objective: PROM: WFLs Treatment UBE x 4 minutes (2' fwd/ 2' bkwd) PROM to right shoulder x 25 minutes Exercises: - Supine Overhead Wand - [...] x 20 minutes. HEP Therapeutic Exercise: x 4 minutes Manual Therapy: x 25 minutes Modalities: x 20 minutes Total Timed Treatment: x 49 minutes Assessment The patient tolerated RX well today. PROM improving. Goals Short Term Goals: (set for 2 weeks) Update/Status Patient will be independent with HEP in order to promote long-term health and reduce risk for injury. [] Unmet [x] Progressing [] Met Senior Care Goals: (set [...] safe return to functional adls without issue. [] Unmet [x] Progressing [] Met DASH will improve from 40.8 [x] Unmet [] Progressing [] Met Plan [x]Continue per plan of care [] Alter current plan (see comments) [x] Plan of care initiated [] Hold pending MD visit [] Discharge Comments: This note to serve as a discharge if the patient does not return. Electronically signed by: Signed: Ever Koroma, PT Date: 01/07/2025 documented in this encounter Plan of Treatment Upcoming Encounters Date Type Department Care Team (Late st Contact Info) Description 01/21/2025 7:30 AM EDT Appointment [facility] Physical Therapy [address] [place] [address] Ever Koroma, PT 01/24/2025 10:30 AM EDT Appointment [facility] Physical Therapy [address] [place], [place] [address] Kyle Lee PTA 01/28/2025 8:45 AM EDT Office Visit [facility] [address] [place], [place] [phone] Roderick Duffy MD [address] [id number] 01/28/2025 9:30 AM EDT Appointment [facility] Physical Therapy [address] [place] [address] Kyle Lee, PAPER MILL SUPERINTENDENT documented as of this encounter Visit Diagnoses Diagnosis Adhesive capsulitis of right shoulder- Primary Adhesive capsulitis of shoulder documented in this encounter Care Teams Dry Color Tester Relationship Specialty Start Date End Date Shira Anthony [address] [place] [facility] [address] [place] [phone] PCP - General Family Medicine 07/14/13 documented as of this encounter
--- OUTSIDE RECORDS SUMMARY | 2025-01-10 14:00 | XMS_ITS | Encounter Summary ---
Author Organization [place] [address] Care Team Providers Care Solid Waste Facility Supervisor Name Role Phone Shira Anthony Primary Care Provider [phone] Reason for Visit * Physical Therapy (Routine) - Authorized Specialty Diagnoses / Procedures Referred By Contmaggy t Referred To Contact Physical Therapy Diagnoses Acute pain of right shoulder Adhesive capsulitis of right shoulder Tendinitis of right rotator cuff Roderick Duffy MD [address] [address] Phone: tel: fax: [facility] Physical Therapy [address] [place] [address] Phone: tel: fax: Referral ID Status Reason Start Date Expiration Date V isits Requested Visits Authorized [id number] Authorized 11/29/2024 11/29/2025 99 99 Encounter Details Date Type Department Care Team (Latest Contact Info) Description 01/10/2025 2:00 PM EDT - 01/10/2025 11:59 PM EDT Hospital Encounter [facility] Physical Therapy [address] [place] [phone] Kyle Lee PTA Adhesive capsulitis of right [...] Progress Notes * Kyle Lee PTA - 01/10/2025 2:00 PM EDT Images from the original note were not included. Physical Therapy Treatment Note Patient Name: Vickie Rodgers : 1970 Visit #: 9 Onset Date: 10/09/24 Diagnosis: Acute pain of right shoulder Adhesive capsulitis of right shoulder Tendinitis of right rotator cuff Restrictions/Precautions: [place] Physician: Tati BRUNSON Follow Up: prn Evaluation Date: 12/09/2024 Reassessment Due: 02/09/25 Primary Insurance: [employer]/[facility] CHOICE PLUS Secondary Insurance: Insurance Authorization: AMB REFERRAL TO PHYSICAL THERAPY Authorized (11/29/2024-11/29/2025) Visits Requested Visits Authorized Visits Completed Visits Scheduled [phone] 5 Details Referral ID: [id number] Authorization Status Reason: Covered Benefit Authorization Comments: -- Referred To: SUDARSHAN BOO PT Referred By: Roderick Duffy MD at [facility], [facility] Creation Date: 11/29/2024 Referral Reasons: -- Referral Order: AMB REFERRAL TO PHYSICAL THERAPY Time In/Out: 2:02 pm / 3:12 pm (70 min) Medication Changes: None Pain: 5 Location: right shoulder Description: Pain is described as aching, dull, sharp, and variable intensity Subjective Pt reports it doesn't hurt if she is not moving it. It hurts the most when reaching behind the back(IR). Objective: FOTO Score & PSFS FOTO??: (1-100) [...] Slide with Towel - x 10 - Sidelying Sleeper Stretch - 10 sec x 10 VASO and ICE to right shoulder in longsitting with head of mat raised x 20 minutes. HEP Therapeutic Exercise: x 20 minutes Manual Therapy: x 25 minutes Modalities: x 20 minutes Total Timed Treatment: x 45 minutes Assessment Pt tolerated session well. Pt remains most tight into IR. Goals Short Term Goals: (set for 2 weeks) Update/Status Patient will be independent with HEP in order to promote long-term health and reduce risk for injury. [] Unmet [x] Progressing [] Met Scientific Research Associate Goals: (set for 8 weeks) Update/Status Patient's [...] signed by: Signed: Kyle Lee PTA Date: 01/10/2025 Charges: MANUAL x 2, TE x 1, VASO, ICE documented in this encounter Plan of Treatment Upcoming Encounters Date Type Department Care Team (Late st Contact Info) Description 01/21/2025 7:30 AM EDT Appointment [facility] Physical Therapy [address] [place] [address] Ever Koroma PT 01/24/2025 10:30 AM EDT Appointment [facility] Physical Therapy [address] [place], [place] [address] Kyle Lee PTA 01/28/2025 8:45 AM EDT Office Visit [place] [phone] Roderick Duffy MD [address] [place] [address] 01/28/2025 9:30 AM EDT Appointment [facility] Physical Therapy [address] [place], [place] [address] Kyle Lee PTA documented as of this encounter Visit Diagnoses Diagnosis Adhesive capsulitis of right shoulder- Primary Adhesive capsulitis of shoulder documented in this encounter Care Teams Solid Waste Facility Supervisor Relationship Specialty Start Date End Date Shira Anthony [address] [facility] [address] [place] [address] PCP - General Family Medicine 07/14/13 documented as of this encounter
--- OUTSIDE RECORDS SUMMARY | 2025-01-17 10:24 | XMS_ITS | Clinical Summary ---
Author Organization Healthcare Address [address] [place] [address] Care Team Providers Care Ceramic Engineering Professor Name Role Phone Unavailable Primary Care Provider [...]
--- OUTSIDE RECORDS SUMMARY | 2025-01-17 10:24 | XMS_ITS | Encounter Summary ---
Author Organization [facility] Address [address] [place] [address] Care Team Providers Care Monotype Machinist Name Role Phone Unavailable Primary Care Provider Unavailabl e Encounter Details Date Type Department Care Team (Late st Contact Info) Description 01/10/2023 Community Orders Community Practice [address] [place] [address] Bita Christopher, ARCHITECTURAL REPRESENTATIVE [address] [place] [address] Obstructive sleep apnea (Primary Dx); [...]
--- OUTSIDE RECORDS SUMMARY | 2025-01-17 10:24 | XMS_ITS | Encounter Summary ---
Author Organization [place] [address] Care Team Providers Care Chief Security Officer Name Role Phone Shira Anthony Primary Care Provider [phone] Encounter Details Date Type Department Care Team (Late Contact Info) Description 12/01/2024 Orders Only [facility] Physical Therapy [address] [place] [address] Ever Koroma, PT Social History Tobacco Use Types Packs/Day Years [...] 01/21/2025 7:30 AM EDT Appointment [facility] Physical Therapy [address] [place] [phone] Ever Koroma, PT 01/24/2025 10:30 AM EDT Appointment [facility] Physical Therapy [address] [place] [address] Kyle Lee PTA 01/28/2025 8:45 AM EDT Office Visit [address] [address] Roderick Dufyf MD [address] [facility] [address] [place] [id number] 01/28/2025 9:30 AM EDT Appointment [facility] Physical Therapy [address] [facility] [address] [place], [place] [phone] Kyle Lee PTA documented as of this encounter Visit Diagnoses Not on filedocumented in this encounter Care Teams Chief Security Officer Relationship Specialty Start Date End Date Shira Anthony [address] [facility] [facility] [address] [place] [address] PCP - General Family Medicine 07/14/13 documented as of this encounter
--- OUTSIDE RECORDS SUMMARY | 2025-01-17 10:24 | XMS_ITS | Clinical Summary ---
Author Organization [facility] Address One [facility] [place] [address] Phone Care Team Providers Care Confidential Investigator Name Role Phone Shira Anthony Primary Care Provider [phone] Allergies Active Allergy Reactions Criticality Noted Date Comments Guaifenesin Palpitations 10/05/2021 MUCINEX DM Medications pantoprazole (PROTONIX) 40 mg Oral Tablet, Delayed Release (E.C.) 05/24/2020 Active ferrous sulfate 325 mg (65 mg iron) Oral Tablet 03/09/2020 Active ibuprofen (ADVIL;MOTRIN) 600 mg Oral Tablet Take 1 Tablet by mouth every 6 hours as needed. 60 Tablet 1 10/11/2021 9:32 AM EDT 10/11/2021 Active meloxicam (MOBIC) 15 mg Oral TabletIndication s:Acute pain of right shoulder,Adhesiv e capsulitis of right shoulder,Tendini tis of right rotator cuff Take 1 Tablet by mouth daily. 30 Tablet 2 11/29/2024 Active Active Problems Problem Noted Date Diagnosed Date Adhesive capsulitis of right shoulder 12/09/2024 Abnormal uterine bleeding (AUB) 10/04/2021 Overview (10/04/2021): Added automatically from request for surgery [id number] Perimenopausal 04/30/2016 Encounters Date Type Department Care Team Description 01/10/2025 2:00 PM EDT - 01/10/2025 11:59 PM EDT Hospital Encounter [facility] Physical Therapy [address] [phone] Kyle Lee, TAKER OFF DRYING KILN Adhesive capsulitis of right shoulder (Primary Dx) Discharge Disposition: Home or Self Care 01/07/2025 7:53 AM EDT - 01/07/2025 11:59 PM EDT Hospital Encounter [facility] Physical Therapy [place] [address] Ever Koroma, PT Adhesive capsulitis of right shoulder (Primary Dx) Discharge Disposition: Home or Self Care 01/03/2025 7:50 AM EDT - 01/03/2025 11:59 PM EDT Hospital Encounter [facility] Physical Therapy [place] [address] Ever Koroma, PT Adhesive capsulitis of right shoulder (Primary Dx) Discharge Disposition: Home or Self Care 12/31/2024 7:50 AM EDT - 12/31/2024 11:59 PM EDT Hospital Encounter [facility] Physical Therapy [address] [place] [address] Kyle Lee, TAKER OFF DRYING KILN Adhesive capsulitis of right shoulder (Primary Dx) Discharge Disposition: Home or Self Care 12/27/2024 7:54 AM EDT - 12/27/2024 11:59 PM EDT Hospital Encounter [facility] Physical Therapy [place] [place] [address] Kyle Lee, TAKER OFF DRYING KILN Adhesive capsulitis of right shoulder (Primary Dx) Discharge Disposition: Home or Self Care 12/24/2024 7:59 AM EDT - 12/24/2024 11:59 PM EDT Hospital Encounter [facility] Physical Therapy [address] [place] [address] Ever Koroma, PT Adhesive capsulitis of right shoulder (Primary Dx) Discharge Disposition: Home or Self Care 12/20/2024 8:00 AM EDT - 12/20/2024 11:59 PM EDT Hospital Encounter [facility] Physical Therapy [address] [place] [address] Ever Koroam, PT Adhesive capsulitis of right shoulder (Primary Dx) Discharge Disposition: Home or Self Care 12/16/2024 7:30 AM EDT - 12/16/2024 11:59 PM EDT Hospital Encounter [facility] Physical Therapy [place] [address] Ever Koroma, PT Adhesive capsulitis of right shoulder (Primary Dx) Discharge Disposition: Home or Self Care 12/10/2024 8:04 AM EDT - 12/10/2024 11:59 PM EDT Hospital Encounter [facility] Mammography [address] [facility] [place] [address] Belkis Maguire APRN Encounter for screening mammogram for malignant neoplasm of breast Discharge Disposition: Home or Self Care 12/10/2024 8:03 AM EDT Hospital Encounter [facility] [address] [facility] [place] [address] Belkis Maguire APRN Localized edema Discharge Disposition: Home or Self Care 12/09/2024 7:46 AM EDT - 12/09/2024 11:59 PM EDT Hospital Encounter [facility] Physical Therapy [place] [address] Ever Koroma, PT Adhesive capsulitis of right shoulder (Primary Dx) Discharge Disposition: Home or Self Care 12/01/2024 Orders Only [facility] Physical Therapy [place] [address] Ever Koroma, PT 11/29/2024 3:30 PM EDT Ancillary Procedure Pamela Couch [address] [place] [address] Roderick Duffy MD 11/29/2024 3:15 PM EDT Office Visit Pamela Couch [address] [place] [address] Roderick Duffy MD Acute pain of right shoulder (Primary Dx); Adhesive capsulitis of right shoulder; Tendinitis of right rotator cuff 11/04/2024 12:03 PM EDT - 11/04/2024 11:59 PM EDT Hospital Encounter [facility] CT [address] [place] [address] Belkis Maguire APRN Screening for malignant neoplasm of respiratory organ Discharge Disposition: Home or Self Care 10/29/2024 Orders Only SEP Outside Study Review 1 [facility] [address] [address] [address] Belkis Maguire APRN Screening for malignant neoplasm of respiratory organ (Primary Dx) from Last 3 Months Surgical History Surgery Date Site/Laterality Comments TUBAL LIGATION CHOLECYSTECTOMY 07/11/2020 COLONOSCOPY UPPER GASTROINTESTINAL ENDOSCOPY ENDOMETRIAL ABLATION 10/11/2021 N/A ENDOMETRIAL ABLATION WITH NOVASURE DILATION AND CURETTAGE HYSTEROSCOPY; Surgeon: Jacqueline Fine DO; Location: [facility]; Service: Gynecology Medical History Medical [...] 3 3 Date Outcome GA Total Labor Labor/2nd/3rd Weight Sex Type Anes PTL Sabrina A1 [...] 10/11/2021 6:30 AM EDT Plan of Treatment Upcoming Encounters Date Type Department Care Team (Late st Contact Info) Description 01/21/2025 7:30 AM EDT Appointment [facility] Physical Therapy [address], [place] [address] Ever Koroma, PT 01/24/2025 10:30 AM EDT Appointment [facility] Physical Therapy [place] [address] Kyle Lee, MOOSE 01/28/2025 8:45 AM EDT Office Visit [address] [id number] Roderick Duffy MD [address] [facility] [address] [place] [address] 01/28/2025 9:30 AM EDT Appointment [facility] Physical Therapy [place], [place] [address] Kyle Lee, TAKER OFF DRYING KILN Health Maintenance Due Date Last Done Comments Annual Wellness Exam 1972 DTaP/TDaP/Td (1 - Tdap) 1988 Hepatitis B Vaccine (1 of 3 - 19+ 3-dose series) 1988 Pneumococcal Vaccine 50+ (1 of 2 - PCV) 1988 Cologuard 2014 FIT 2014 Sigmoidoscopy 2014 Virtual Colonography 2014 Zoster (1 of 2) 10/24/2019 Colon Cancer Screening 12/01/2022 Colonoscopy 12/01/2022 12/02/2019 COVID-19 Vaccine ( season) 2024 04/19/2021, 08/25/2020, 08/18/2020 Pap Smear 09/10/2024 09/10/2021, 05/20, 08/08/2015 Influenza Vaccine (#1) 2025 07/16/2018 Low Dose Lung Cancer Screening 11/04/2025 11/04/2024, 07/21/2023, 01/17/2015 Cervical Cancer Screening 09/10/2026 HPV/Pap Cotest 09/10/2026 09/10/2021 Breast Cancer Screening 12/10/2026 12/11/19, 06/13/2023, 09/22/2020, Additional history exists Meningococcal B Vaccine Aged Out No l onger eligible based on patient's age to complete this topic Procedures Procedure Name Priority Date/Time Associated Diagnosis Comments EC ECHOCARDIOGRAM COMPLETE W DOPPLER AND COLOR FLOW MAPPING Routine 12/10/2024 9:21 AM EDT Localized edema MM MAMMO DIGITAL NISHANT SCREEN BILAT Routine 12/10/2024 9:01 AM EDT Encounter for screening mammogram for malignant neoplasm of breast XR SHOULDER RIGHT 4 VIEWS Routine 11/29/2024 3:28 PM EDT Acute pain of right shoulder ME ARTHROCENTESIS ASPIR&/INJ MAJOR JT/BURSA W/O US Routine 11/29/2024 3:15 PM EDT Acute pain of right shoulder Adhesive capsulitis of right shoulder Tendinitis of right rotator cuff CT LUNG CANCER SCREENING LOW DOSE Routine 11/04/2024 12:18 PM EDT Screening for malignant neoplasm of respiratory organ FUR DRY CLEANER HAND CYTOLOGY REQUEST (PAP ONLY) Routine 09/10/2021 11:17 AM EDT Well woman exam from Last 3 Months or Most Recently Relevant to Health Maintenance Results * EC ECHOCARDIOGRAM COMPLETE W DOPPLER [...] tricuspid regurgitation jet. Narrative Procedure Note Flip Luis, DO - 12/11/2024 IMPRESSION Conclusions * Left [...] to lackof tricuspid regurgitation jet. Belkis Maguire MID LEVEL PRACTITIONER IMG ECHO ORDERABLES Final Resu lt * MM MAMMO DIGITAL NISHANT SCREEN BILAT (12/10/2024 9:01 AM EDT) Anatomical Region Laterality Modality Breast Bilateral Mammography 12/10/2024 9:01 AM EDT Impressions 12/10/2024 9:34 AM EDT Negative ([id number]) RECOMMENDATION: Routine Screening Mammogram in 1 Year Bilateral . . COMMENTS: DISCLAIMER *The patient was notified by MyChart or mail of the results for this examination. *The patient's information was entered into a reminder system with a target due date for the next breast imaging, in accordance with the [employer] and the Society of [...] for screening mammogram for malignant neoplasm of [id number]-CM COMPARISON STUDIES: Compared with prior studies the most recent being 06/13/2023 MM MAMMO DIGITAL NISHANT SCREEN BILAT at [facility] 09/22/2020 MM MAMMO DIGITAL NISHANT SCREEN BILAT at [facility] TISSUE DENSITY: The breasts are heterogeneously dense, which may obscure small masses. FINDINGS: No mammographic evidence of malignancy. Procedure Note Stephani Cruz MD - 12/10/2024 EXAM: MM MAMMO DIGITAL NISHANT SCREEN BILAT EXAM DATE: 12/10/2024 9:01 AM INDICATION: Z12.31-Encounter for screening mammogram for malignantneoplasm of [id number] COMPARISON STUDIES: Compared with prior studies the most recent being 06/13/2023 MM MAMMO DIGITAL NISHANT SCREEN BILAT at [facility] 09/22/2020 MM MAMMO DIGITAL NISHANT SCREEN BILAT at [facility] TISSUE DENSITY: The breasts are heterogeneously dense, which may obscuresmall masses. FINDINGS: No mammographic evidence of malignancy. IMPRESSION: Negative ([id number]) RECOMMENDATION: Routine Screening Mammogram in 1 Year Bilateral . . COMMENTS: DISCLAIMER *The patient was notified by MyChart or mail of the results for this examination. *The patient's information was entered into a reminder system with atarget due date for the next breast imaging, in accordance with the [place] and the Society of Breast Imaging recommendations. *Breast Imaging has a false negative rate of 15%. *Any patient with a palpable abnormality, unexplained by breast imaging,should be managed on a clinical basis by the attending physician. us Belkis Maguire APRN IMG MAMMOGRAPHY ORDERABLES Fin al Result * XR SHOULDER RIGHT 4 VIEWS (11/29/2024 3:28 PM EDT) Narrative ORTHOCINCY - 11/29/2024 3:28 PM EDT Please see physician's note from office encounter for x-ray imaging result Roderick Duffy MD IMG DIAGNOSTIC IMAGING O RDERABLES Final Result Performing Organization Address [facility]/ZIP Co de Phone Number [facility] * ME ARTHROCENTESIS ASPIR&/INJ MAJOR JT/BURSA W/O US (11/29/2024 [...] Edited Result - Final Performing Organization Address City/[facility]/ZIP Co de Phone Number [facility] * CT LUNG CANCER SCREENING LOW DOSE (11/04/2024 12:18 PM EDT) Anatomical Region Laterality Modality Lung Computed Tomogra phy 11/04/2024 12:1 8 PM EDT Impressions 11/08/2024 2:13 PM EDT Unremarkable low-dose screening chest CT. RECOMMENDATION: Low Dose CT - 1 Yr A summary letter communicating these results will be mailed to the patient's address of record. - Note: Radiology results need to be interpreted within a comprehensive clinical context. If you have questions about the radiology report, please contact the office of the ordering clinician. [email or web address] Narrative 11/08/2024 2:[address] LUNG CANCER SCREENING LOW DOSE 11/04/2024 12:18 PM CLINICAL HISTORY: Asymptomatic patient meeting NCCN high risk criteria for lung screening. Z12.2-Encounter for screening for malignant neoplasm of respiratory [id number]. COMPARISON: 07/21/2023 PROCEDURE COMMENTS: Noncontrast, low-dose, multidetector CT chest per department protocol. Dose 1 : CT DLP Total : 57.81 mGycm DLP Spiral Max : 56.29 mGycm Maximum CTDI Vol : 1.77 mGy SSDE : 1.2921 mGy SSDE Diameter : 44.2 cm SSDE Source : Lat FINDINGS: Stable mild anterior lingular scar. No suspicious pulmonary nodule. No acute inflammatory process. Heart and mediastinum unremarkable. Coronary artery calcification: None. FOLLOW-UP CODE: Lung-RADS Category 1: Negative: No nodule or definitely benign nodule(s). Continued ANNUAL LOW-DOSE SCREENING CT SCAN (IMG [id number]) suggested if age <78. Lung-RADS Modifier N/A: No Modifier Needed Procedure Note Broderick Mcdonough MD - 11/08/2024 CT LUNG CANCER SCREENING LOW DOSE 11/04/2024 12:18 PM CLINICAL HISTORY: Asymptomatic patient meeting NCCN high risk criteria forlung screening. Z12.2-Encounter for screening for malignant neoplasm ofrespiratory [id number]-CM. COMPARISON: 07/21/2023 PROCEDURE COMMENTS: Noncontrast, low-dose, multidetector CT chest perdepartment protocol. Dose 1 : CT DLP Total : 57.81 mGycm DLP Spiral Max : 56.29 mGycm Maximum CTDI Vol : 1.77 mGy SSDE : 1.2921 mGy SSDE Diameter : 44.2 cm SSDE Source : Lat FINDINGS: Stable mild anterior lingular scar. No suspicious pulmonarynodule. No acute inflammatory process. Heart and mediastinum unremarkable. Coronary artery calcification: None. FOLLOW-UP CODE: Lung-RADS Category 1: Negative: No nodule or definitelybenign nodule(s). Continued ANNUAL LOW-DOSE SCREENING CT SCAN ([facility] [address])suggested if age <78. Lung-RADS Modifier N/A: No Modifier Needed IMPRESSION: Unremarkable low-dose screening chest CT. RECOMMENDATION: Low Dose CT - 1 Yr A summary letter communicating these results will be mailed to thepatient's address of record. - Note: Radiology results need to be interpreted within a comprehensiveclinical context. If you have questions about the radiology report, please contactthe office of the ordering clinician. [email or web address] Belkis Maguire MID LEVEL PRACTITIONER [facility] CT ORDERABLES Final Result * FUR DRY CLEANER HAND CYTOLOGY REQUEST (PAP ONLY) (09/10/2021 11:17 AM EDT) CASE REPORT Gynecologic Cytology Report Case: [id number] Authorizing Provider: Jacqueline Fine Collected: 09/10/2021 Negar Mcnair DO Ordering Location: [facility] Received: 09/10/2021 1117 First Screen: Leann Easley, CT Specimen: LIQUID-BASED PAP - CERVICAL/ENDOCERV ICAL, Cervix, Endocervical 09/17/2021 10:21 AM EDT [facility] PAP FINAL DIAGNOSIS Negative for intraepithelial lesion or malignancy 09/17/2021 10:21 AM EDT [facility] at 1021 EDT MICROSCOPIC DESCRIPTION Microscopic examination is performed and the findings corroborate the diagnosis. 09/17/2021 10:21 AM EDT [facility] PAP SMEAR ADEQUACY Satisfactory for evaluation 09/17/2021 10:21 AM EDT [facility] ENDOCERVICAL T-ZONE Transformation zone present 09/17/2021 10:21 AM EDT [facility] EMBEDDED IMAGES 10:21 AM EDT [facility] PAP DISCLAIMER Note: this specimen was reprocessed due to excessive blood. The Pap Smear is a screening test that aids in the detection of cervical cancer and cancer precursors. Both false positive and false negative results can occur. The test should be used at regular intervals, and positive results should be confirmed before definitive therapy. Processed using the ThinPrep Flight Engineer Helicopter Automated cytology screening device ([employer]). 09/17/2021 10:21 AM EDT [facility] PAP OTHER FINDINGS Many acute inflammatory cells noted. 09/17/2021 10:21 AM EDT [facility] Thin Prep ENDOCERVICAL STRUCTURE / Unknown 09/10/2021 11:17 AM EDT 09/10/2021 11:17 AM EDT Jacqueline Fine DO CYTOLOGY ORDERABLE S Final Result [facility] [address] [place] [address] from Last 3 Months or Most Recently Relevant to Health Maintenance Insurance [employer] CHOICE PLUS [phone] CHOICE PLUS Care Teams Confidential Investigator Relationship Specialty Start Date End Date Shira Anthony [address] [facility] [address] [facility] [address] PCP - General Family Medicine 07/14/13
== END 2025-01-14 23:59 ==
LOC: LAB.DROPOF 01-17 10:23
PROVIDERS: PCP Nurse Practitioner Family; Visit Provider Nurse Practitioner Family
DX: N39.0 Urinary tract infection, site not specified (principal); R10.30 Lower abdominal pain, unspecified
CPT/HCPCS: 87086

== ENCOUNTER 2025-03-28 13:35 | Outpatient (CLI) | payer OTHER, SELFPAY ==
--- OUTSIDE RECORDS SUMMARY | 2025-01-26 06:30 | XMS_ITS | Encounter Summary ---
Author Organization [place] [address] Care Team Providers Care Kitchen Steward Name Role Phone Shira Anthony Primary Care Provider Reason for Visit * Physical Therapy (Routine) - Authorized Specialty Diagnoses / Procedures Referred By Contmaggy t Referred To Contact Physical Therapy Diagnoses Acute pain of right shoulder Adhesive capsulitis of right shoulder Tendinitis of right rotator cuff Roderick Duffy MD [address] [address] Phone: tel: fax: [facility] Physical [place] [address] Phone: tel: fax: Referral ID Status Reason Start Date Expiration Date V isits Requested Visits Authorized [id number] Authorized 11/29/2024 11/29/2025 99 99 Encounter Details Date Type Department Care Team (Latest Contact Info) Description 01/26/2025 7:30 AM EDT - 01/26/2025 11:59 PM EDT Hospital Encounter [facility] Physical Therapy [address] [place] [address] Ever Koroma PT Adhesive capsulitis of right shoulder (Primary Dx) Discharge Disposition: Home or Self Care Social History Tobacco Use Types Packs/Day Years Used Date Smoking Tobacco: Every Day Cigarettes 1 40.4 Started: 10/17/1984 Smokeless Tobacco: Never Comments:Down to [...] Tablet 1 10/11/2021 9:32 AM EDT 10/11/2021 pantoprazole (PROTONIX) 40 mg Oral Tablet, Delayed Release (E.C.) 05/24/2020 meloxicam (MOBIC) 15 mg Oral TabletIndication s:Acute pain of right shoulder,Adhesiv e capsulitis of right shoulder,Tendini tis of right rotator cuff Take 1 Tablet by mouth daily. 30 Tablet 2 11/29/2024 5 sodium,potassium ,mag sulfates (SUPREP BOWEL PREP KIT) 17.5-3.13-1.6 gram Oral Recon Soln Take 1 kit per physician instructions 354 mL 01/19/2025 5 documented as of this encounter Discharge Disposition Disposition Code Departure Means Destination Home or Self Care documented in this encounter Progress Notes * Calixto Contreras - 01/26/2025 8:13 AM EDT Program_ID:[id number] Access Code: [email or web address] URL: [email or web address] Date: 01-26-2025 Prepared By: Ever Koroma Program Notes Exercises [...] - 3 sets - 10 reps - Single Arm Shoulder Extension with Anchored Resistance - 1 x daily - 7 x weekly - 3 sets - 10 reps - Standing Single Arm Shoulder Flexion with Posterior Anchored Resistance - 1 x daily - 7 x weekly - 3 sets - 10 reps - Shoulder External Rotation with Anchored Resistance with Towel Under Elbow - 1 x daily - 7 x weekly - 3 sets - 10 reps - Shoulder Internal Rotation with Resistance - 1 x daily - 7 x weekly - 3 sets - 10 reps * Ever Koroma, PT - 01/26/2025 7:30 AM EDT Images from the original note were not included. Physical Therapy Reassessment Note Patient Name: Vickie Rodgers : 1970 Visit #: [id number] Onset Date: 10/09/24 Diagnosis: Acute pain of right shoulder Adhesive capsulitis of right shoulder Tendinitis of right rotator cuff Restrictions/Precautions: Vickery Physician: Tati BRUNSON Follow Up: prn Evaluation Date: 12/09/2024 Reassessment Due: 02/09/25 Primary Insurance: [employer] CHOICE PLUS Secondary Insurance: Insurance Authorization: AMB REFERRAL TO PHYSICAL THERAPY Authorized (11/29/2024-11/29/2025) Visits Requested Visits Authorized Visits Completed Visits Scheduled 99 [phone] 11 1 Details Referral ID: [id number] Authorization Status Reason: Covered Benefit Authorization Comments: -- Referred To: SUDARSHAN BOO PT Referred By: Roderick Duffy MD at [facility], [facility] Creation Date: 11/29/2024 Referral Reasons: -- Referral Order: AMB REFERRAL TO PHYSICAL THERAPY Time In/Out: 7:30/8:25 Timed Treatment Minutes: Manual therapy techniques 20 minutes Therapeutic Exercise 10 minutes Total Timed Code Treatment Minutes: 30 Untimed Treatment Minutes: Hot/cold packs and Vaso Total Treatment Minutes: 50 Medication Changes: Pain: 4 Location: right shoulder Description: Pain is described as aching, dull, sharp, and variable intensity Subjective The patient reports the shoulder is feeling a little better. Objective: Treatment UBE x 4 minutes (2' fwd/ 2' bkwd) PROM to right shoulder x 20 minutes Exercises: - Supine Overhead Wand - 3# 10 sec x 10 - Standing Overhead Shoulder ER Stretch with Towel - x 10 - Standing Shoulder IR Stretch with Hands Behind Back - x 10 - Shoulder Flexion Wall Slide with Towel - x 10 - Scaption Wall Slide with Towel - x 10 - Sidelying Sleeper Stretch - 10 sec x 10 T-band green: Flex, ext, er, ir x 15 reps each VASO and ICE to right shoulder in longsitting with head of mat raised x 20 minutes. HEP Updated HEP and green t-band issued to patient Therapeutic Exercise: x 20 minutes Manual Therapy: x 25 minutes Modalities: x 20 minutes Total Timed Treatment: x 45 minutes Assessment The patient tolerated increased RX well today. Goals Short Term Goals: (set for 2 weeks) Update/Status Patient will be independent with HEP in order to promote long-term health and reduce risk for injury. [] Unmet [x] Progressing [] Met Sr Technical Sales Consultant Goals: (set for 8 weeks) Update/Status Patient's [...] signed by: Signed: Ever Koroma PT Date: 01/26/2025 documented in this encounter Plan of Treatment Upcoming Encounters Date Type Department Care Team (Late st Contact Info) Description 04/08/2025 8:00 AM EST Appointment [facility] Physical Therapy [address] [place] [address] Ever Koroma, PT documented as of this encounter Visit Diagnoses Diagnosis Adhesive capsulitis of right shoulder- Primary Adhesive capsulitis of shoulder documented in this encounter Care Teams Kitchen Steward Relationship Specialty Start Date End Date Shira Anthony [address] [facility] [address] [place] [address] PCP - General Family Medicine 07/14/13 documented as of this encounter
--- OUTSIDE RECORDS SUMMARY | 2025-01-28 07:45 | XMS_ITS | Encounter Summary ---
Author Organization [facility] Address [address] [place] [address] Care Team Providers Care Global Marketing Manager Name Role Phone Shira Anthony Primary Care Provider [phone] Reason for Visit * Reason Comments Follow-up Encounter Details Date Type Department Care Team (Late st Contact Info) Description 01/28/2025 8:45 [place] [address] Roderick Duffy MD [address] [place] [address] Adhesive capsulitis of right shoulder (Primary Dx); Tendinitis of right rotator cuff Social History [...] on file documented as of this encounter Progress Notes * Roderick Duffy MD - 01/28/2025 8:45 AM EDT Images from the original note were not included. Roderick Duffy MD Knee, Shoulder, Sports Medicine & Trauma Orthopaedic Surgery [facility] [phone] [employer] 01/28/2025 Subjective: Patient ID: Vickie Rodgers is a 54 y.o. patient that has a chief complaint of Chief Complaint Patient presents with ??? Right Shoulder - Follow-up Patient The last time the patient saw me: 11/29/2024 HPI recheck patient note The patient returns for evaluation for: RC RT SHLD - rotator cuff tendonitis, adhesive capsulitis s/p inj 11/29/2024 How is the patient Doing? The patient reports they are: Pt. States they are doing good and that they are not having any pain. Pt. States not having any questions or cncerns at this time they can think of. Relevant point review of (Review of Systems Form, Injury Forms, and/or History Forms) dated 01/28/2025 (or most recent visit to [facility]) was reviewed and all pertinent positives were reviewed and are available in the patient's chart in the Media tab. There were no vitals filed for this [...] Mood is appropriate for circumstances. Musculoskeletal Exam: Ortho Exam Right Shoulder Exam Tenderness Right shoulder no pain Range of Motion External rotation: 40 Forward flexion: 150 Internal rotation t10 Muscle Strength External rotation: 4/5 Supraspinatus: 4/5 Subscapularis: 4/5 Tests Apprehension: negative Cavanaugh test: positive Cross arm: negative Impingement: positive Drop arm: negative Sulcus: absent Other Erythema: absent Scars: absent Sensation: normal Pulse: present Comments: 4/5 ship liner strength Full RUM - obriens - speeds - spurlings Imaging: XR SHOULDER RIGHT 4 VIEWS Result Date: 11/29/2024 Xrays were reviewed and discussed in detail with the patient Results: no fractures or malalignment were noted calcifications in the right lung, she already had a work up per her report Assessment: Colt Johnston was seen today for follow-up. Diagnoses and all orders for this visit: Adhesive capsulitis of right shoulder Tendinitis of right rotator cuff THE PLAN IS OUTLINED BELOW: Shoulder Plan: 98% better from a frozen shoulder The pathophysiology and treatment of the above [...] and alternatives, the patient has elected for continued formal PT and working hard on home PT as well and she should continue for a few months of stretching. Recheck if symptoms worsen. Procedures (If performed, procedures will be listed here) DME Summary No orders found for display Please feel free to visit my website for additional information on musculoskeletal and orthopaedic care. [employer] ALLERGIES Allergies Allergen Reactions ??? Mucinex [Guaifenesin] [...] packs/day: 1.00 Average packs/day: 1 pack/day for 40.3 years (40.3 ttl pk-yrs) Types: Cigarettes Start date: 10/17/1984 [...] MEDICATIONS Outpatient meds: Current Outpatient Medications: ??? meloxicam (MOBIC) 15 mg Oral Tablet, Take 1 Tablet by mouth daily., Disp: 30 Tablet, Rfl: 2 ??? ferrous sulfate 325 mg (65 mg iron) Oral Tablet, , Disp: , Rfl: ??? ibuprofen (ADVIL;MOTRIN) 600 mg Oral Tablet, Take 1 Tablet by mouth every 6 hours as needed., Disp: 60 Tablet, Rfl: 1 ??? pantoprazole (PROTONIX) 40 mg Oral Tablet, Delayed Release (E.C.), , Disp: , Rfl: ??? sodium,potassium,mag sulfates (SUPREP BOWEL PREP KIT) 17.5-3.13-1.6 gram Oral Recon Soln, Take 1 kit per physician instructions (Patient not taking: Reported on 01/28/2025), Disp: 354 mL, Rfl: 0 Roderick Duffy MD Knee, Shoulder, Sports Medicine & Trauma Orthopaedic Surgery [facility] [phone] [employer] Parts of this note may have been [...] if the situation occurs. If questions occur please do not hesitate to call our office. The patient was advised to call with any issues or concerns in the future. documented in this encounter Plan of Treatment Upcoming Encounters Date Type Department Care Team (Late st Contact Info) Description 04/08/2025 8:00 AM EST Appointment [facility] Physical Therapy [address] [phone] Eevr Koroma, PT documented as of this encounter Visit Diagnoses Diagnosis Adhesive capsulitis of right shoulder- Primary Adhesive capsulitis of shoulder Tendinitis of right rotator cuff Disorders of bursae and tendons in shoulder region, unspecified documented in this encounter Care Teams Global Marketing Manager Relationship Specialty Start Date End Date Shira Anthony [address] [place] [facility] [address] [place] [address] PCP - General Family Medicine 07/14/13 documented as of this encounter
--- OUTSIDE RECORDS SUMMARY | 2025-01-28 10:15 | XMS_ITS | Encounter Summary ---
Author Organization [place] [address] Care Team Providers Care Elementary School Tutor Name Role Phone Shira Anthony Primary Care Provider [phone] Reason for Visit * Physical Therapy (Routine) - Authorized Specialty Diagnoses / Procedures Referred By Contamggy t Referred To Contact Physical Therapy Diagnoses Acute pain of right shoulder Adhesive capsulitis of right shoulder Tendinitis of right rotator cuff Roderick Duffy MD [address] [address] Phone: tel: fax: [facility] Physical Therapy [address] [place] [address] Phone: tel: fax: Referral ID Status Reason Start Date Expiration Date V isits Requested Visits Authorized [id number] Authorized 11/29/2024 11/29/2025 99 99 Encounter Details Date Type Department Care Team (Latest Contact Info) Description 01/28/2025 11:15 AM EDT - 01/28/2025 11:59 PM EDT Hospital Encounter [facility] Physical Therapy [address] [place] [phone] Kyle Lee PTA Adhesive capsulitis of right [...] Progress Notes * Kyle Lee PTA - 01/28/2025 11:30 AM EDT Images from the original note were not included. Physical Therapy Treatment Note Patient Name: Vickie Rodgers : 1970 Visit #: 12 Onset Date: 10/09/24 Diagnosis: Acute pain of right shoulder Adhesive capsulitis of right shoulder Tendinitis of right rotator cuff Restrictions/Precautions: [place] Physician: Tati BRUNSON Follow Up: prn Evaluation Date: 12/09/2024 Reassessment Due: 02/09/25 Primary Insurance: [facility] CHO[facility] PLUS Secondary Insurance: Insurance Authorization: AMB REFERRAL TO PHYSICAL THERAPY Authorized (11/29/2024-11/29/2025) Visits Requested Visits Authorized Visits Completed Visits Scheduled 99 99 12 -- Details Referral ID: [id number] Authorization Status Reason: Covered Benefit Authorization Comments: -- Referred To: SUDARSHAN BOO PT Referred By: Roderick Duffy MD at [facility], [facility] Creation Date: 11/29/2024 Referral Reasons: -- Referral Order: AMB REFERRAL TO PHYSICAL THERAPY Time In/Out: 11:28 am / 12:38 pm (70 min) Medication Changes: None Pain: 0 Location: right shoulder Description: Pain is described as aching, dull, sharp, and variable intensity Subjective Pt reports she went to MD. He wants her to finish out her PT visits, then con't with HEP. Objective: FOTO Score & PSFS FOTO??: (1-100) [...] t-band issued to patient Therapeutic Exercise: x 26 minutes Manual Therapy: x 20 minutes Modalities: x 20 minutes Total Timed Treatment: x 46 minutes Assessment Pt tolerated session well. Pt demo excellent range in all directions with PROM. Goals Short Term Goals: (set for 2 weeks) Update/Status Patient will be independent with HEP in order to promote long-term health and reduce risk for injury. [] Unmet [x] Progressing [] Met Military Source Operations Specialist Goals: (set for 8 weeks) Update/Status Patient's [...] signed by: Signed: Kyle Lee PTA Date: 01/28/2025 Charges: TE x 2, MANUAL, VASO, ICE documented in this encounter Plan of Treatment Upcoming Encounters Date Type Department Care Team (Late st Contact Info) Description 04/08/2025 8:00 AM EST Appointment [facility] Physical Therapy [address] [place] [address] Ever Koroma, PT documented as of this encounter Visit Diagnoses Diagnosis Adhesive capsulitis of right shoulder- Primary Adhesive capsulitis of shoulder documented in this encounter Care Teams Elementary School Tutor Relationship Specialty Start Date End Date Shira Anthony [address] [place] [facility] [address] [place] [address] PCP - General Family Medicine 07/14/13 documented as of this encounter
--- OUTSIDE RECORDS SUMMARY | 2025-01-31 06:53 | XMS_ITS | Encounter Summary ---
Author Organization [place] [address] Care Team Providers Care Spice Grinder Name Role Phone Shira Anthony Primary Care Provider [phone] Reason for Visit * Physical Therapy (Routine) - Authorized Specialty Diagnoses / Procedures Referred By Contmaggy t Referred To Contact Physical Therapy Diagnoses Acute pain of right shoulder Adhesive capsulitis of right shoulder Tendinitis of right rotator cuff Roderick Duffy MD [address] [address] Phone: tel: fax: [facility] Physical Therapy [address] [place] [address] Phone: tel: fax: Referral ID Status Reason Start Date Expiration Date V isits Requested Visits Authorized [id number] Authorized 11/29/2024 11/29/2025 99 99 Encounter Details Date Type Department Care Team (Latest Contact Info) Description 01/31/2025 7:53 AM EDT - 01/31/2025 11:59 PM EDT Hospital Encounter [facility] Physical Therapy [address] [place] [phone] Kyle Lee PTA Adhesive capsulitis of right [...] Progress Notes * Kyle Lee PTA - 01/31/2025 8:00 AM EDT Images from the original note were not included. Physical Therapy Treatment Note Patient Name: Vickie Rodgers : 1970 Visit #: 13 Onset Date: 10/09/24 Diagnosis: Acute pain of right shoulder Adhesive capsulitis of right shoulder Tendinitis of right rotator cuff Restrictions/Precautions: [place] Physician: Tati BRUNSON Follow Up: prn Evaluation Date: 12/09/2024 Reassessment Due: 02/09/25 Primary Insurance: [facility] CHOICE PLUS Secondary Insurance: Insurance Authorization: Time In/Out: 7:53 am / 9:09 am (76 min) Medication Changes: None Pain: 0 Location: right shoulder Description: Pain is described as aching, dull, sharp, and variable intensity Subjective I don't have any pain. Pt reports it's a little bit better everyday . Objective: FOTO Score & PSFS FOTO??: (1-100) Initial 12/09/2024 Re-Assess Score (Predicted) 51 (72) PSFS: Patient will be able to... (0-10) Reach behind myself 0 Reach a shelf above shoulder height 0 Reach underneath the coffee table to get fallen objects 0 Treatment UBE x 4 minutes (2' fwd/ 2' bkwd) PROM to right shoulder x 17 minutes Exercises: - Supine Overhead Wand - [...] x 10 T-band green: Flex, ext, er, ir, row x 20 reps each VASO and ICE to right shoulder in longsitting with head of mat raised x 20 minutes. HEP Updated HEP and green t-band issued to patient Therapeutic Exercise: x 31 minutes Manual Therapy: x 17 minutes Modalities: x 20 minutes Total Timed Treatment: x 28 minutes Assessment Pt tolerated session well. Pt was more tight with PROM today. Goals Short Term Goals: (set for 2 weeks) Update/Status Patient will be independent with HEP in order to promote long-term health and reduce risk for injury. [] Unmet [x] Progressing [] Met Loan Representative Goals: (set for 8 weeks) Update/Status Patient's [...] signed by: Signed: Kyle Lee PTA Date: 01/31/2025 Charges: TE x 2, MANUAL, VASO, ICE documented in this encounter Plan of Treatment Upcoming Encounters Date Type Department Care Team (Late st Contact Info) Description 04/08/2025 8:00 AM EST Appointment [facility] Physical Therapy [address] [place] [address] Ever Koroma, PT documented as of this encounter Visit Diagnoses Diagnosis Adhesive capsulitis of right shoulder- Primary Adhesive capsulitis of shoulder documented in this encounter Care Teams Spice Grinder Relationship Specialty Start Date End Date Shira Anthony [address] [facility] [address] [place] [address] PCP - General Family Medicine 07/14/13 documented as of this encounter
--- OUTSIDE RECORDS SUMMARY | 2025-02-11 06:54 | XMS_ITS | Encounter Summary ---
Author Organization [place] [address] Care Team Providers Care Systematic Theology Professor Name Role Phone Shira Anthony Primary Care Provider [phone] Reason for Visit * Physical Therapy (Routine) - Authorized Specialty Diagnoses / Procedures Referred By Contmaggy t Referred To Contact Physical Therapy Diagnoses Acute pain of right shoulder Adhesive capsulitis of right shoulder Tendinitis of right rotator cuff Roderick Duffy MD [address] [address] Phone: tel: fax: [facility] Physical Therapy [address] [place] [address] Phone: tel: fax: Referral ID Status Reason Start Date Expiration Date V isits Requested Visits Authorized [id number] Authorized 11/29/2024 11/29/2025 99 99 Encounter Details Date Type Department Care Team (Latest Contact Info) Description 02/11/2025 7:54 AM EDT - 02/11/2025 11:59 PM EDT Hospital Encounter [facility] Physical Therapy [address] [place] [phone] Kyle Lee PTA Adhesive capsulitis of right [...] Progress Notes * Kyle Lee PTA - 02/11/2025 8:00 AM EDT Images from the original note were not included. Physical Therapy Treatment Note Patient Name: Vickie Rodgers : 1970 Visit #: 14 Onset Date: 10/09/24 Diagnosis: Acute pain of right shoulder Adhesive capsulitis of right shoulder Tendinitis of right rotator cuff Restrictions/Precautions: [place] Physician: Tati BRUNSON Follow Up: prn Evaluation Date: 12/09/2024 Reassessment Due: 02/09/25 Primary Insurance: [facility] CHO[facility] PLUS Secondary Insurance: Insurance Authorization: AMB REFERRAL TO PHYSICAL THERAPY Authorized (11/29/2024-11/29/2025) Visits Requested Visits Authorized Visits Completed Visits Scheduled 99 99 14 3 Details Referral ID: [id number] Authorization Status Reason: Covered Benefit Authorization Comments: -- Referred To: SUDARSHAN KELLIE PT Referred By: Roderick Duffy MD at [facility], [facility] Creation Date: 11/29/2024 Referral Reasons: -- Referral Order: AMB REFERRAL TO PHYSICAL THERAPY Time In/Out: 7:54 am / 9:05 am (71 min( Medication Changes: None Pain: 0 Location: right shoulder Description: Pain is described as aching, dull, sharp, and variable intensity Subjective Pt reports she tried to keep up on her exercises during vacation, but she was unable to stay consistent. Objective: FOTO Score & PSFS FOTO??: (1-100) [...] Exercise: x 31 minutes Manual Therapy: x 15 minutes Modalities: x 20 minutes Total Timed Treatment: x 46 minutes Assessment Pt tolerated rx well. Pt PROM WNL's in all ranges. Pt did begin tighter into IR. Goals Short Term Goals: (set for 2 weeks) Update/Status Patient will be independent with HEP in order to promote long-term health and reduce risk for injury. [] Unmet [x] Progressing [] Met Mine Environmental Engineer Goals: (set for 8 weeks) Update/Status Patient's [...] signed by: Signed: Kyle Lee PTA Date: 02/11/2025 Charges: TE x 2, MANUAL, VASO, ICE documented in this encounter Plan of Treatment Upcoming Encounters Date Type Department Care Team (Late st Contact Info) Description 04/08/2025 8:00 AM EST Appointment [facility] Physical Therapy [address] [place] [address] Ever Koroma, PT documented as of this encounter Visit Diagnoses Diagnosis Adhesive capsulitis of right shoulder- Primary Adhesive capsulitis of shoulder documented in this encounter Care Teams Systematic Theology Professor Relationship Specialty Start Date End Date Shira Anthony [address] [facility] [address] [place] [address] PCP - General Family Medicine 07/14/13 documented as of this encounter
--- OUTSIDE RECORDS SUMMARY | 2025-02-14 06:57 | XMS_ITS | Encounter Summary ---
Author Organization [place] [address] Care Team Providers Care Psychiatric Cns Name Role Phone Shira Anthony Primary Care Provider [phone] Reason for Visit * Physical Therapy (Routine) - Authorized Specialty Diagnoses / Procedures Referred By Contmaggy t Referred To Contact Physical Therapy Diagnoses Acute pain of right shoulder Adhesive capsulitis of right shoulder Tendinitis of right rotator cuff Roderick Duffy MD [address] [place] [phone] Phone: tel: fax: [facility] Physical [place] [address] Phone: tel: fax: Referral ID Status Reason Start Date Expiration Date V isits Requested Visits Authorized [id number] Authorized 11/29/2024 11/29/2025 99 99 Encounter Details Date Type Department Care Team (Latest Contact Info) Description 02/14/2025 7:57 AM EDT - 02/14/2025 11:59 PM EDT Hospital Encounter [facility] Physical Therapy [address] [place] [address] Ever Koroma PT Adhesive capsulitis of right [...] Progress Notes * Ever Koroma, PT - 02/14/2025 8:00 AM EDT Images from the original note were not included. Physical Therapy Reassessment Note Patient Name: Vickie Rodgers : 1970 Visit #: 15 Onset Date: 10/09/24 Diagnosis: Acute pain of right shoulder Adhesive capsulitis of right shoulder Tendinitis of right rotator cuff Restrictions/Precautions: [place] Physician: Tati BRUNSON Follow Up: prn Evaluation Date: 12/09/2024 Reassessment Due: 02/09/25 Primary Insurance: [facility] CHO[facility] PLUS Secondary Insurance: Insurance Authorization: AMB REFERRAL TO PHYSICAL THERAPY Authorized (11/29/2024-11/29/2025) Visits Requested Visits Authorized Visits Completed Visits Scheduled 99 99 15 2 Details Referral ID: [id number] Authorization Status Reason: Covered Benefit Authorization Comments: -- Referred To: SUDARSHAN BOO PT Referred By: Roderick Duffy MD at [facility], [facility] Creation Date: 11/29/2024 Referral Reasons: -- Referral Order: AMB REFERRAL TO PHYSICAL THERAPY Time In/Out: 7:58/8:50 Timed Treatment Minutes: Manual therapy techniques 10 minutes Therapeutic Exercise 20 minutes Total Timed Code Treatment Minutes: 30 Untimed Treatment Minutes: Hot/cold packs and Vaso Total Treatment Minutes: 50 Medication Changes: Pain: 0 Location: right shoulder Description: Pain is described as aching, dull, sharp, and variable intensity Subjective The patient reports the shoulder is feeling good. Objective: Treatment UBE x 4 minutes (2' fwd/ 2' bkwd) PROM to right shoulder x 10 minutes Exercises: - Supine Overhead Wand - [...] 10 T-band green: Flex, ext, er, ir, rows x 30 reps each VASO and ICE to right shoulder in longsitting with head of mat raised x 20 minutes. HEP Updated HEP and green t-band issued to patient Therapeutic Exercise: x 20 minutes Manual Therapy: x 10 minutes Modalities: x 20 minutes Total Timed Treatment: x 50 minutes Assessment The patient tolerated RX well today. Goals Short Term Goals: (set for 2 weeks) Update/Status Patient will be independent with HEP in order to promote long-term health and reduce risk for injury. [] Unmet [] Progressing [x] Met Crowning Inspector Goals: (set for 8 weeks) Update/Status Patient's [...] week in order to perform functional adls. [] Unmet [] Progressing [x] Met Patient's right shoulder AROM will increase to WFLs to allow for safe return to functional adls without issue. [] Unmet [] Progressing [x] Met DASH will improve from 40.8 [x] Unmet [] Progressing [] Met Plan [x]Continue per plan of care [] Alter current plan (see comments) [x] Plan of care initiated [] Hold pending MD visit [] Discharge Comments: This note to serve as a discharge if the patient does not return. Electronically signed by: Signed: Ever Koroma PT Date: 02/14/2025 documented in this encounter Plan of Treatment Upcoming Encounters Date Type Department Care Team (Late st Contact Info) Description 04/08/2025 8:00 AM EST Appointment [facility] Physical Therapy [address] [address] Ever Koroma PT documented as of this encounter Visit Diagnoses Diagnosis Adhesive capsulitis of right shoulder- Primary Adhesive capsulitis of shoulder documented in this encounter Care Teams Psychiatric Cns Relationship Specialty Start Date End Date Shira Anthony [address] [place] [address] [facility] [address] [place] [address] PCP - General Family Medicine 07/14/13 documented as of this encounter
--- OUTSIDE RECORDS SUMMARY | 2025-02-17 07:58 | XMS_ITS | Encounter Summary ---
Author Organization [place] [address] Care Team Providers Care Floor Hand Name Role Phone Shira Anthony Primary Care Provider [phone] Reason for Visit * Physical Therapy (Routine) - Authorized Specialty Diagnoses / Procedures Referred By Contmaggy t Referred To Contact Physical Therapy Diagnoses Acute pain of right shoulder Adhesive capsulitis of right shoulder Tendinitis of right rotator cuff Roderick Duffy MD [address] [address] Phone: tel: fax: [facility] [place] [address] Phone: tel: fax: Referral ID Status Reason Start Date Expiration Date V isits Requested Visits Authorized [id number] Authorized 11/29/2024 11/29/2025 99 99 Encounter Details Date Type Department Care Team (Latest Contact Info) Description 02/17/2025 8:58 AM EDT - 02/17/2025 11:59 PM EDT Hospital Encounter [facility] Physical Therapy [address] [place] [address] Emma Tinoco PT Adhesive capsulitis of right shoulder (Primary [...] encounter Progress Notes * Provider, Unknown - 02/17/2025 9:09 AM EDT * Emma Tinoco, PT - 02/17/2025 9:00 AM EDT Images from the original note were not included. Physical Therapy Treatment Note Patient Name: Vickie Rodgers : 1970 Visit #: 16 Onset Date: 10/09/24 Diagnosis: Acute pain of right shoulder Adhesive capsulitis of right shoulder Tendinitis of right rotator cuff Restrictions/Precautions: [place] Physician: Tati BRUNSON Follow Up: prn Evaluation Date: 12/09/2024 Reassessment Due: 03/20/25 Primary Insurance: [facility] Secondary Insurance: Insurance Authorization: AMB REFERRAL TO PHYSICAL THERAPY Authorized (11/29/2024-11/29/2025) Visits Requested Visits Authorized Visits Completed Visits Scheduled 99 99 16 1 Details Referral ID: [id number] Authorization Status Reason: Covered Benefit Authorization Comments: -- Referred To: SUDARSHAN BOO PT Referred By: Roderick Duffy MD at [facility], [facility] Creation Date: 11/29/2024 Referral Reasons: -- Referral Order: AMB REFERRAL TO PHYSICAL THERAPY Time In/Out: 01/25:45 am Timed Treatment Minutes: Manual therapy techniques 10 minutes Therapeutic Exercise 20 minutes Total Timed Code Treatment Minutes: 30 Untimed Treatment Minutes: Hot/cold packs and Vaso Total Treatment Minutes: 45 Medication Changes: none Pain: 0 Location: right shoulder Description: Pain is described as aching, dull, sharp, and variable intensity Subjective still difficult to reach behind my back Objective: 02/17/25 AROM: Left WNLS Right: Flex 150 Abd 180 Er 90 Ir right T8 (bra strap) 5/5 strength within available ROM FOTO Score & PSFS FOTO??: (1-100) Initial 12/09/2024 Re-Assess 02/17/25 Score (Predicted) 51 (72) 75 PSFS: Patient will be able to... (0-10) Reach behind myself 0 3 Reach a shelf above shoulder height 0 9 Reach underneath the coffee table to get fallen objects 0 9 DASH 8.3 Treatment UBE x 4 minutes (2' fwd/ [...] longsitting with head of mat raised x 15 minutes. HEP Updated HEP and green t-band issued to patient Therapeutic Exercise: x 20 minutes Manual Therapy: x 10 minutes Modalities: x 15 minutes Total Timed Treatment: x 45 minutes Assessment progressing well with ROM. tightness in IR and slight limitation in flexion. Goals Short Term Goals: (set for 2 weeks) Update/Status Patient will be independent with HEP in order to promote long-term health and reduce risk for injury. [] Unmet [] Progressing [x] Met Skilled Nursing Goals: (set for 8 weeks) Update/Status Patient's FOTO score will increase to 72 noting an increase in overall function. [] Unmet [] Progressing [x] Met Patient's PSFS score on functional adls will improve from 0/10 to 8/10, noting an improvement in function that is important to patient's quality of life. [] Unmet [x] Progressing [] Met Patient's right shoulder strength will increase to 4/5 in order to perform functional adls without issue. [] Unmet [] Progressing [x] Met Pt will report no higher than 2/10 pain with functional activities for the duration of 1 week in order to perform functional adls. [] Unmet [] Progressing [x] Met Patient's right shoulder AROM will increase to WFLs to allow for safe return to functional adls without issue. [] Unmet [] Progressing [x] Met DASH will improve from 40.8 [] Unmet [] Progressing [x] Met Plan recommend continuation 1 time per week to focus on getting full ROM in flexion and IR. [x]Continue per plan of care [] Alter current plan (see comments) [x] Plan of care initiated [] Hold pending MD visit [] Discharge Comments: This note to serve as a discharge if the patient does not return. Electronically signed by: Signed: Emma Tinoco PT Date: 02/17/2025 documented in this encounter Plan of Treatment Upcoming Encounters Date Type Department Care Team (Late st Contact Info) Description 04/08/2025 8:00 AM EST Appointment [facility] Physical Therapy [address] [address] Ever Koroma, PT documented as of this encounter Visit Diagnoses Diagnosis Adhesive capsulitis of right shoulder- Primary Adhesive capsulitis of shoulder documented in this encounter Care Teams Floor Hand Relationship Specialty Start Date End Date Shira Anthony [address] [facility] [address] [place] [address] PCP - General Family Medicine 07/14/13 documented as of this encounter
--- OUTSIDE RECORDS SUMMARY | 2025-02-21 06:57 | XMS_ITS | Encounter Summary ---
Author Organization [place] [address] Care Team Providers Care Barbering Instructor Name Role Phone Shira Anthony Primary Care Provider [phone] Reason for Visit * Physical Therapy (Routine) - Authorized Specialty Diagnoses / Procedures Referred By Contmaggy t Referred To Contact Physical Therapy Diagnoses Acute pain of right shoulder Adhesive capsulitis of right shoulder Tendinitis of right rotator cuff Roderick Duffy MD [address] [address] Phone: tel: fax: [facility] Physical Therapy [address] [place] [address] Phone: tel: fax: Referral ID Status Reason Start Date Expiration Date V isits Requested Visits Authorized [id number] Authorized 11/29/2024 11/29/2025 99 99 Encounter Details Date Type Department Care Team (Latest Contact Info) Description 02/21/2025 7:57 AM EDT - 02/21/2025 11:59 PM EDT Hospital Encounter [facility] [address] [place] [phone] Kyle Lee PTA Adhesive capsulitis of right [...] Progress Notes * Kyle Lee PTA - 02/21/2025 8:00 AM EDT Images from the original note were not included. Physical Therapy Treatment Note Patient Name: Vickie Rodgers : 1970 Visit #: 17 Onset Date: 10/09/24 Diagnosis: Acute pain of right shoulder Adhesive capsulitis of right shoulder Tendinitis of right rotator cuff Restrictions/Precautions: [place] Physician: Tati BRUNSON Follow Up: prn Evaluation Date: 12/09/2024 Reassessment Due: 03/20/25 Primary Insurance: [facility] PLUS Secondary Insurance: Insurance Authorization: AMB REFERRAL TO PHYSICAL THERAPY Authorized (11/29/2024-11/29/2025) Visits Requested Visits Authorized Visits Completed Visits Scheduled 99 99 17 -- Details Referral ID: [id number] Authorization Status Reason: Covered Benefit Authorization Comments: -- Referred To: SUDARSHAN RAMÍREZRIA PT Referred By: Roderick Duffy MD at [facility], [facility] Creation Date: 11/29/2024 Referral Reasons: -- Referral Order: AMB REFERRAL TO PHYSICAL THERAPY Time In/Out: 7:57 am / 8:54 am (57 min) Medication Changes: None Pain: 0 Location: right shoulder Description: Pain is described as aching, dull, sharp, and variable intensity Subjective Pt reports today is potentially Objective: 02/17/25 AROM: Left WNLS Right: Flex [...] Wand - 3# 10 sec x 10 NT - Standing Overhead Shoulder ER Stretch with Towel - x 10 NT - Standing Shoulder IR Stretch with Hands Behind Back - x 10 NT - Shoulder Flexion Wall Slide with Towel - x 10 NT - [employer] Wall Slide with Towel - x 10 NT - Sidelying Sleeper Stretch - 10 sec x 10 - Standing Rows - Blue x 30 - Standing Ext - Blue x 30 - Standing Flex - Blue x 30 - Standing IR - Blue x 30 - Standing ER - Blue x 30 VASO and ICE to right shoulder in longsitting with head of mat raised x 20 minutes. HEP Updated HEP and green t-band issued to patient Therapeutic Exercise: x 19 minutes Manual Therapy: x 10 minutes Modalities: x 20 minutes Total Timed Treatment: x 29 minutes Assessment Pt tolerated rx well. Discussed potential D/C to HEP, pt given Blue Theraband in case she didn't return. Goals Short Term Goals: (set for 2 weeks) Update/Status Patient will be independent with HEP in order to promote long-term health and reduce risk for injury. [] Unmet [] Progressing [x] Met Magazine Editor Goals: (set for 8 weeks) Update/Status [...] [] Unmet [] Progressing [x] Met Plan [x]Continue per plan of care [] Alter current plan (see comments) [x] Plan of care initiated [] Hold pending MD visit [] Discharge Comments: This note to serve as a discharge if the patient does not return. Electronically signed by: Signed: Kyle Lee PTA Date: 02/21/2025 Charges: TE x 1, MANUAL x 1, VASO, ICE documented in this encounter Plan of Treatment Upcoming Encounters Date Type Department Care Team (Late st Contact Info) Description 04/08/2025 8:00 AM EST Appointment [facility] Physical Therapy [address] [phone] Ever Koroma, PT documented as of this encounter Visit Diagnoses Diagnosis Adhesive capsulitis of right shoulder- Primary Adhesive capsulitis of shoulder documented in this encounter Care Teams Barbering Instructor Relationship Specialty Start Date End Date Shira Anthony [address] [place] [address] PCP - General Family Medicine 07/14/13 documented as of this encounter
--- OUTSIDE RECORDS SUMMARY | 2025-02-24 07:05 | XMS_ITS | Encounter Summary ---
[facility] Address [address] [place] [address] Care Team Providers Care Body Finisher Name Role Phone Shira Anthony Primary Care Provider [phone] Reason for Referral * Surgical (Routine) - AFF Authorized Specialty Diagnoses / Procedures Referred By Heather jeong Referred To Contact Gastroenterology Diagnoses Personal history of other colon polyps Family history of colon cancer Procedures COLONOSCOPY UT COLONOSCOPY FLX DX W/COLLJ SPEC WHEN PFRMD UT COLONOSCOPY FLX W/ENDOSCOPIC MUCOSAL RESECTION Bahman Marshall III, MD [address] [place] [address] Phone: tel: fax: Bahman Marshall III, MD [address] [place] [address] Phone: tel: fax: Referral ID Status Reason Start Date Expiration Date Visits Requested Visits Authorized [id number] AFF Authorized 01/19/2025 01/19/2026 1 1 Reason for Visit * Surgical (Routine) - AFF Authorized Specialty Diagnoses / Procedures Referred By Heather jeong Referred To Contact Gastroenterology Diagnoses Personal history of other colon polyps Family history of colon cancer Procedures COLONOSCOPY UT COLONOSCOPY FLX DX W/COLLJ SPEC WHEN PFRMD UT COLONOSCOPY FLX W/ENDOSCOPIC MUCOSAL RESECTION Bahman Marshall III, MD [address] [place] [address] Phone: tel: fax: Bahman Marshall III, MD [address] [place] [address] Phone: tel: fax: Referral ID Status Reason Start Date Expiration Date Visits Requested Visits Authorized [id number] AFF Authorized 01/19/2025 01/19/2026 1 1 Encounter Details Date Type Department Care Team (Latest Contact Info) Description 02/24/2025 8:05 AM EDT - 02/24/2025 11:59 PM EDT Hospital Encounter [facility] [address] [place] [address] Bahman Marshall III, MD [address] [place] [address] Personal history of other colon polyps; Family history of colon cancer- paternal GF; Family history of colon cancer Discharge Disposition: Home or Self Care Social [...] on file documented as of this encounter Last Filed Vital Signs Vital Sign Reading Time Taken Comments Blood Pressure 112/55 02/24/2025 10:11 AM EDT Pulse 72 02/24/2025 10:11 AM EDT Temperature 36.4 C (97.5 F) 02/24/2025 8:35 AM EDT Respiratory Rate 16 02/24/2025 10:11 AM EDT Oxygen Saturation 94% 02/24/2025 10:11 AM EDT Inhaled Oxygen Concentration - - Weight 79.4 kg (175 lb) 02/24/2025 8:35 AM EDT Height 165.1 cm (5' 5 ) 02/24/2025 8:35 AM EDT Body Mass Index 29.12 02/24/2025 8:35 AM EDT documented in this encounter Discharge Instructions * Discharge Instructions* Opal Dior RN - 02/24/2025 10:00 AM EDT Images from the original note were not included. Recommendation Await pathology results Recommend a high fiber diet. Repeat colonoscopy in 5 years, due: 02/23/2030 ? Personal history of colon polyps Adenomatous polyps in 2021 IT IS VERY IMPORTANT THAT YOU FOLLOW THESE INSTRUCTIONS: ACTIVITY: The sedative medications generally wear off quickly, but they may make you less alert than normal. Today should be a day of rest. DO NOT drive a car, undertake vigorous exercise, or operatemachinery today. DO NOT sign any legal documents or make any important decisions. You may resume normal activity the day after your procedure. DIET: You may resume your usual diet unless directed otherwise. It is encouraged that you drink plenty of fluids throughout the day to help replenish lost fluids. DO NOT consume alcoholic beverages until the following day due to the residual effects of the administered sedation. MEDICATIONS: Resume home medications unless the physician indicates otherwise in the recommendations listed above. WHAT TO EXPECT FOLLOWING YOUR PROCEDURE: You may feel gas or cramps for a few hours. This is due to the air that was introduced into the colon during your procedure. You should start to expel gas before you leave the facility and will continue to do so throughout the remainder of the day. However, if you have abdominal (stomach) pain or swelling, please call our office. You may notice a few drops of blood in the toilet or on the toilet paper following your procedure. This is caused by irritation to the bowel during the procedure and is not a problem. However, if youexperience heavy bleeding or if the bleeding persists for three or more days following the procedure, please contact our office. If you develop a fever greater than 101 degrees or chills during the next 48 hours, please contact our office. Please monitor your IV site closely for any post removal complications. You may or may not have received medications that are classified as vesicants (medications that can cause tissue damage). Examples of such medications used at [facility] include dextrose, epinephrine, esmolol, lorazepam, phenylephrine, and/or promethazine. The medications you received today will be listed on the first page of your discharge instructions. Please contact our office immediately if any of the following occur: Red streaks on your skin near the IV site Skin at the IV site turns dark or peels Fluid, blood, or pus leaking from the IV site Swelling, pain or redness at the IV site that doesn???t get better or gets worse Numb, tight, or cool feeling at the IV site Blisters or bruises on your skin at the IV site Fever of 100.4 or higher You may feel nauseated today. This may occur due to the medications administered for your procedure. This should resolve within a few hours. If your nausea continues for more than 24 hours, please contact our office. Do not use enemas or suppositories unless you have discussed this with your physician. Contact our office at [phone] or [phone] if questions or problems arise. Our office hoursare 8:00 am to 5:00 pm Friday through Friday. A practitioner is nutrition assistant outside of office hours foremergency phone calls at [phone] or [phone] Biopsies are used to evaluate many things and do not indicate that cancer was found. They are used to help determine the cause of symptoms. All biopsies will be reviewed by a pathologist. The resultsmay not be available for 2-3 weeks. Follow up on the biopsy results as instructed by your physician. After you have completely recovered from your sedation, please review your discharge instructions. You may not remember speaking with your physician following your procedure due to the amnesic effects of the sedation. In efforts to provide continuity of care, you will receive a follow up phone call from our [facility] the following day (or on Friday should your procedure fall on Friday). If you are unavailable to accept the call and if permissible, according to your HIPAA form on file, we will leave a message. You are not required to return the call unless you have questions or concerns. If the HIPAA form that is on file does not permit our facility to leave a message, we will not do so. We strive to provide compassionate, high quality, cost effective care to our patients and to make your experience as comfortable as possible. We value your opinion and encourage you to offer commentsor suggestions by completing a brief online survey (via secured connection) that will be emailed toyou within a week your procedure from [address]. Your input contributes to our facility's process of continually reviewing and improving patient satisfaction. We thank you in advance for your feedback. Patient Education High Fiber Diet About this topic Dietary fiber helps many illnesses. It can help you if you cannot have a bowel movement or if you have loose stools. Fiber can also lower your risk of diabetes and heart disease. Fiber can help with weight loss by helping you feel paul after meals. You can find fiber in fruits, vegetables, nuts and seeds, whole grains, and legumes. The fiber is the part of the plant food that your body cannot break down and absorb. It passes through your stomach, small bowel, colon, and out your body. There are two kinds of fiber: Insoluble and soluble fiber. Insoluble fiber helps you pass foods through your digestive system. Insoluble fiber can help you with hard stools. Soluble fiber draws waterin and turns it into a gel-like form making digestion slow down. Both are important. What will the results be? A high fiber diet can help you with bowel problems like stools that are too hard or too loose. It can also help prevent hemorrhoids and other colon problems. A high fiber diet can also help control your weight and lower blood sugar and cholesterol levels. What changes to diet are needed? The amount of fiber you need is based on your age, gender, and health. Try to get 20 to 35 grams of fiber in your diet each day. Most people in the [place] only eat 15 grams of fiber daily. Drink at least 8 cups (1920 mL) of fluid each day. When is this diet used? Your doctor may talk with you about this diet if you have belly problems. Who should use this diet? Older children, young people, and adults can have this diet. Who should not use this diet? Some people should not use this diet. Check with your doctor if you have: Diverticulitis Active Crohn's disease Ulcerative colitis Bowel inflammation Certain types of GI surgery Talk to your child's doctor before starting your child on a high fiber diet. What foods are good to eat? To get the most from fiber in your diet, eat a wide variety of high fiber foods. Some examples are: Vegetables like: Spinach Peas Artichoke Sweet potatoes with skin Broccoli Fruits like: Raspberries Blueberries Blackberries Apples with skin Dried fruits Grains like: Oat bran Barley Whole wheat products Wheat bran Dried beans and nuts like: [place] seeds Almonds Black beans Chickpeas What problems could happen? Sudden increase of fiber intake can lead to gas, pain, fullness in your belly, and loose stools. Increase fiber gradually while drinking plenty of fluids. Do not eat too much fiber. Your body will not take in vitamins and minerals as well if you eat too much fiber. When do I need to call the doctor? Health problem is not better or you are feeling worse. Helpful tips Start slow as you add more fiber to your diet. This may help prevent gas or cramps. Try to eat the same amount of fiber each day. Aim to get your fiber from nutritious foods. Supplements do not offer the same benefits as food. Read food labels with care to learn how much fiber is in the food you are eating. If possible, do not peel fruits or vegetables before you eat them. Eating the peel gives you more fiber. Where can I learn more? Eat Right https://www.eatright.org/food/hgyfgtql-ymo-xmcirpckwyc/eaclm-cm-ryzopzqr-and-nut rients/boyh-aoam-te-esxug-acetv-pk-tpzv-vuiks-yyqo Last Reviewed Date 2021-02-08 Consumer Information Use and Disclaimer This information is not specific medical advice and does not replace information you receive from your health care provider. This is only a brief summary of general information. It does NOT include all information about conditions, illnesses, injuries, tests, procedures, treatments, therapies, discharge instructions or life-style choices that may apply to you. You must talk with your health care provider for complete information about your health and treatment options. This information should not be used to decide whether or not to accept your health care provider???s advice, instructions or recommendations. Only your health care provider has the knowledge and training to provide advice that is right for you. Copyright Copyright ?? 2020 [employer]. and its affiliates and/or licensors. All rights reserved. documented in this encounter Medications at Time of Discharge ferrous sulfate 325 mg (65 mg iron) Oral Tablet 03/09/2020 ibuprofen (ADVIL;MOTRIN) 600 mg Oral Tablet Take 1 Tablet by mouth every 6 hours as needed. 60 Tablet 1 10/11/2021 9:32 AM EDT 10/11/2021 pantoprazole (PROTONIX) 40 mg Oral Tablet, Delayed Release (E.C.) 05/24/2020 meloxicam (MOBIC) 15 mg Oral TabletIndications :Acute pain of right shoulder,Adhesive capsulitis of right shoulder,Tendinit is of right rotator cuff Take 1 Tablet by mouth daily. 30 Tablet 2 11/29/2024 02/27/2025 documented as of this encounter Discharge Disposition Disposition Code Departure Means Destination Home or Self Care documented in this encounter Progress Notes * Deanna Griffith CRNA - 02/24/2025 9:20 AM EDT Images from the original note were not included. Patient: Vickie Rodgers Age: 54 y.o. Sex: female Vitals: Vitals: 02/24/25 0955 BP: 133/76 Pulse: 68 Resp: Temp: SpO2: 98% Planned Procedure: COLONOSCOPY Surgical History: Surgical History[1] Allergies: Allergies[2] Medications: Current Outpatient Medications Medication Instructions ferrous sulfate 325 mg (65 mg iron) Oral Tablet No dose, route, or frequency recorded. ibuprofen (ADVIL;MOTRIN) 600 mg, Oral, EVERY 6 HOURS PRN meloxicam (MOBIC) 15 mg, Oral, DAILY pantoprazole (PROTONIX) 40 mg Oral Tablet, Delayed Release (E.C.) No dose, route, or frequency recorded. Anesthesia Assessment: Results for orders placed or performed during the hospital encounter of 02/24/25 POCT URINE Result Value Ref Range Preg Test, Ur negative Lot Number [id number] Expiration Date 07/07/26 SeriAl # Control Line Yes YES/NO 02/24/2025 8:40 AM AMB [facility] AN[facility]HESIA ASSESSMENT SEAT COVER CUTTER performed anesthesia assessment for patients receiving MAC anesthesia. Anesthesia plan explained to patient per SEAT COVER CUTTER. Consent for anesthesia obtained. Yes Neurological Assessment Within normal limits Cardiac Assessment RRR no M/R/G Pulmonary Assessment Lungs clear to auscultate bilaterally / respirations easy and even Airway Evaluation Mallampati Classification 2 Dentation Evaluation Good dentation ASA Class P2 - a patient with mild systemic disease Anesthesia supplies / equipment checked prior to procedure yes Procedure time out performed Yes Patient position for procedure Left lateral position and HOB elevated Monitors during procedure EKG;SaO2;EtCO2;NIBP Oxygen delivery Nasal Cannula Airway utilized for procedure Natural Post procedure report given to post procedure nurse Yes Procedure Documentation: Sedation Summary (02/24/2025 08:40:23 to 02/24/2025 10:55:31) 02/24/2025 Event Details User 08:40 Anesthesia Other flowsheet entries Airway utilized for procedure: Natural Deanna Griffith CRNA 08:40:23 Documentation Start Time Deanna Griffith CRNA 08:40:25 Staff Arrived Deanna Griffith CRNA [SEAT COVER CUTTER]; Bahman Marshall III, MD [Performing P]; Amena Ghotra RN [Nurse] Deanna Griffith CRNA 09:35:12 Anesthesia Start Time Deanna Griffith CRNA 09:35:57 Patient Out - Pre-Op Status: Patient in Pre-Op -- 09:35:58 Start Visit Amena Ghotra RN 09:35:58 Patient In - Proc. Room Status: Patient In Proc. Room -- 09:36 Endoscopy Documentation Start Amena Ghotra RN 09:36:13 Home Medications Reviewed Bahman Marshall III, MD 09:38 [facility] Vitals [facility] Vitals BP: 111/55 (Device Time: :38:14) BP MAP (mmHg): 76 (Device Time: :38:14) Resp: 60 (Device Time: :38:14) SpO2: 95 % (Device Time: :38:14) ETCO2 (mmHg): 36 mmHg (Device Time: :38:44) Pulse: 85 (Device Time: :38:14) Deanna Griffith CRNA 09:38:09 [facility] Vitals [facility] Vitals Cardiac Rhythm: SR Deanna Griffith CRNA 09:38:19 Timeout: Initial in Room Verified by Amena Ghotra RN at 02/24/2025 0938 Amena Ghotra RN 09:39 Timeout: Final - Physician Led Verified by Amena Ghotra RN at 02/24/2025 0939 Amena Ghotra RN 09:39 [facility] Vitals [facility] BP: 111/55 (Device Time: 09:39:14) BP MAP (mmHg): 76 (Device Time: :39:14) Resp: 17 (Device Time: 09:38:44) SpO2: 98 % (Device Time: 39:14) ETCO2 (mmHg): 36 mmHg (Device Time: :14) Pulse: 60 (Device Time: :14) Deanna Griffith CRNA 09:39:26 Medication Ordered and Given lidocaine 1% 10 mg/mL (1 %) injection - Dose: 5 mL ; Route: Intravenous ; Line: Peripheral IV 02/24/25 0836 Posterior;Right Hand Ordered by: Deanna Griffith CRNA Bridges, Kim, CRNA 09:39:31 Medication Ordered and Given propofoL (DIPRIVAN) injection - Dose: 100 mg ; Route: Intravenous ; Line: Peripheral IV 02/24/25 0836 Posterior;Right Hand Ordered by: Deanna Griffith CRNA Bridges, Kim, CRNA 09:40 [facility] Vitals [facility] BP: 111/55 (Device Time: :40:14) BP MAP (mmHg): 76 (Device Time: 40:14) SpO2: 96 % (Device Time: ::14) ETCO2 (mmHg): 42 mmHg (Device Time: :14) Pulse: 81 (Device Time: ::14) Deanna Griffith CRNA 09:41 [facility] Vitals [facility] BP: 122/72 (Device Time: ::14) BP MAP (mmHg): 88 (Device Time: ::14) SpO2: 95 % (Device Time: :14) ETCO2 (mmHg): 35 mmHg (Device Time: ::14) Pulse: 83 (Device Time: ::14) Deanna Griffith CRNA 09:42 [facility] Vitals [facility] BP: 122/72 (Device Time: ::14) BP MAP (mmHg): 88 (Device Time: ::14) SpO2: 98 % (Device Time: ::14) ETCO2 (mmHg): 34 mmHg (Device Time: ::14) Pulse: 64 (Device Time: ::14) Deanna Griffith CRNA 09:42:18 Medication Given propofoL (DIPRIVAN) injection - Dose: 50 mg ; Route: Intravenous ; Line: Peripheral IV 02/24/25 0836 Posterior;Right Hand Deanna Griffith CRNA 09:42:19 Endoscopy Scope In Time Amena Ghotra RN 09:43 [facility]als [facility] BP: 122/72 (Device Time: :14) BP MAP (mmHg): 88 (Device Time: :) SpO2: 99 % (Device Time: :) ETCO2 (mmHg): 36 mmHg (Device Time: :14) Pulse: 72 (Device Time: :14) Deanna Griffith CRNA 09:44 [facility]als [facility] BP: 109/68 (Device Time: ) BP MAP (mmHg): 80 (Device Time: :) SpO2: 99 % (Device Time: :) ETCO2 (mmHg): 36 mmHg (Device Time: ) Pulse: 74 (Device Time: :) Deanna Griffith CRNA ::14 Medication Given propofoL (DIPRIVAN) injection - Dose: 50 mg ; Route: Intravenous ; Line: Peripheral IV 02/24/25 0836 Posterior;Right Hand Deanna Griffith CRNA 09:45 [facility] Vitals [facility] BP: 109/68 (Device Time: :45:15) BP MAP (mmHg): 80 (Device Time: :15) SpO2: 99 % (Device Time: :45:15) ETCO2 (mmHg): 34 mmHg (Device Time: :45:15) Pulse: 78 (Device Time: :45:15) Deanna Griffith CRNA 09:46 [facility]als [facility] BP: 109/68 (Device Time: ) BP MAP (mmHg): 80 (Device Time: ) SpO2: 99 % (Device Time: ) ETCO2 (mmHg): 40 mmHg (Device Time: :) Pulse: 76 (Device Time: :) Deanna Griffith CRNA 09:47 [facility]als [facility] BP: 109/68 (Device Time: ) BP MAP (mmHg): 80 (Device Time: :) SpO2: 99 % (Device Time: :) ETCO2 (mmHg): 36 mmHg (Device Time: ) Pulse: 76 (Device Time: :46) Deanna Griffith CRNA 09:47:03 Medication Given propofoL (DIPRIVAN) injection - Dose: 50 mg ; Route: Intravenous ; Line: Peripheral IV 02/24/25 0836 Posterior;Right Hand Deanna Griffith CRNA 09:47:07 Endoscopy Cecum Reached Amena Ghotra RN 09:47:10 Scope Withdraw Begin Amena Gohtra RN 09:47:23 Terminal Ileum Reached Amena Ghotra RN 09:48 [facility]als [facility] BP: 117/70 (Device Time: :46) BP MAP (mmHg): 89 (Device Time: ::) SpO2: 99 % (Device Time: :) ETCO2 (mmHg): 37 mmHg (Device Time: :) Pulse: 77 (Device Time: :) Deanna Griffith CRNA 09:49 [facility]als [facility] BP: 117/70 (Device Time: :48:46) BP MAP (mmHg): 89 (Device Time: :) SpO2: 98 % (Device Time: :) ETCO2 (mmHg): 39 mmHg (Device Time: :46) Pulse: 75 (Device Time: :48:46) Deanna Griffith CRNA 09:50 [facility]als [facility] BP: 117/70 (Device Time: :46) BP MAP (mmHg): 89 (Device Time: :49:46) SpO2: 99 % (Device Time: ::46) ETCO2 (mmHg): 41 mmHg (Device Time: :) Pulse: 69 (Device Time: :49:) Deanna Griffith CRNA 09:50:14 Medication Given propofoL (DIPRIVAN) injection - Dose: 50 mg ; Route: Intravenous ; Line: Peripheral IV 02/24/25 0836 Posterior;Right Hand Deanna Griffith CRNA 09:51 [facility] BP: 129/74 (Device Time: ::46) BP MAP (mmHg): 94 (Device Time: ::46) SpO2: 99 % (Device Time: ::46) ETCO2 (mmHg): 41 mmHg (Device Time: :46) Pulse: 76 (Device Time: :50:46) Deanna Griffith CRNA 09:52 [facility]als [facility] BP: 129/74 (Device Time: :51:46) BP MAP (mmHg): 94 (Device Time: :51:46) SpO2: 98 % (Device Time: :51:46) ETCO2 (mmHg): 42 mmHg (Device Time: :51:46) Pulse: 78 (Device Time: :51:46) Deanna Griffith CRNA 09:53 [facility] BP: 129/74 (Device Time: :52:47) BP MAP (mmHg): 94 (Device Time: :52:47) SpO2: 98 % (Device Time: ::47) ETCO2 (mmHg): 42 mmHg (Device Time: ::47) Pulse: 75 (Device Time: ::47) Deanna Griffith CRNA 09:54 [facility] BP: 133/76 (Device Time: :53:48) BP MAP (mmHg): 96 (Device Time: :53:48) SpO2: 98 % (Device Time: :53:48) ETCO2 (mmHg): 42 mmHg (Device Time: :53:48) Pulse: 70 (Device Time: :53:48) Deanna Griffith CRNA 09:55 [facility]als [facility] BP: 133/76 (Device Time: :54:48) BP MAP (mmHg): 96 (Device Time: :54:48) SpO2: 98 % (Device Time: :54:48) ETCO2 (mmHg): 42 mmHg (Device Time: :54:48) Pulse: 68 (Device Time: :54:48) Deanna Griffith CRNA 09:55:02 Endoscopy Scope Out Time Amena Ghotra RN 09:55:24 Anesthesia End Deanna Griffith CRNA Performance Met for transition of care protocol The signature(s) below denote: Surgeon and SAM/SEAT COVER CUTTER collaboration for anesthesia necessity/delivery. Patient reassessed and meets all discharge criteria. No complications noted. Deanna Griffith CRNA [1] Past Surgical History: Procedure Laterality Date CHOLECYSTECTOMY 07/11/2020 COLONOSCOPY ENDOMETRIAL ABLATION N/A 10/11/2021 ENDOMETRIAL ABLATION WITH NOVASURE DILATION AND CURETTAGE HYSTEROSCOPY; Surgeon: Jacqueline Fine DO; Location: [facility]; Service: Gynecology TUBAL LIGATION UPPER GASTROINTESTINAL ENDOSCOPY [2] Allergies Allergen Reactions Mucinex [Guaifenesin] Palpitations MUCINEX DM documented in this encounter H&P Notes * Bahman Marshall III, MD - 02/24/2025 9:20 AM EDT Images from the original note were not included. Gastroenterology H and P Note Name: Vickie Rodgers : 1970 AGE: 54 y.o. [facility] Pre-Procedure Chief Complaint: No chief complaint on file. Pre-Op Diagnosis: history of polyps Plan/Procedure: COLONOSCOPY Physician: Bahman Marshall III, MD Pre-Procedure Assessment: The patient was seen and examined by me pre-procedure. Risks, benefits, potential complications and alternatives discussed with the patients legally authorized unit support representative. The patient's pre-procedure physical assessment indicates that the patient is suitable candidate for and agrees to the planned sedation and procedure. History of Presenting Illness Vickie Rodgers is a(n) 54 y.o. female with PMH as below here for endoscopy. Cardiovascular and Vital signs Stable Yes Comment: Temp: 97.5 ??F (36.4 ??C) Pulse: 74 Resp: 18 BP: 117/69 Adequate/Patient Oral Airway Yes Comment: Patient has been NPO for a sufficient period of time to allow for gastric emptying Yes Comment: Review of Systems: The following systems were reviewed and revealed the following in addition to any already discussedin the HPI: Constitutional: no weight loss, fever, night sweats Eyes: negative for vision changes or deficits HENT: negative for ear pain, no sore throat, no neck pain Respiratory: no cough, shortness of breath, or wheezing Cardiovascular: negative for chest pain, swelling, dyspnea on exertion Gastrointestinal: See HPI. Genitourinary: negative for urinary urgency or pain during urination Musculoskeletal: negative for weakness or focal loss motor function Integumentary: negative for rashes or other skin lesions Hematology / Lymphatics: negative and there is no easy bleeding or bruising Endocrine: negative Allergy / Immunology: negative Neuro / Psych: negative Medications Prescriptions Prior to Admission[1] Current Medications[2] Allergies[3] History: Past Medical History[4] Surgical History[5] Family History[6] Social History: Vickie's social history reviewed and accurate per documentation. Old Records Reviewed: yes Physical Assessment: General: Alert and oriented x 3, NAD Skin: Warm, no jaundice, no rashes Head: Normocephalic, atraumatic, no abnormalities Eyes: EOMI, no icterus ENT: septum midline, oral mucosa moist/pink Neck: Supple without mass, no jvd Lungs: Symmetrical chest expansion, respirations are easy and unlabored Cardiac: No complaints of chest pain, dyspnea, and/or edema, no noted JVD Abdomen: soft, nontender, nondistended, no hepatosplenomegaly Ext: No edema Patient's Disposition: Home Full informed consent was obtained by me personally. Risks of procedure including bleeding, infection, perforation, need for surgery, cardiopulmonary complications, and even were discussed. In the case of colonoscopy risks for missed polyps/cancers and interval risk for cancer between procedures discussed as well. Patient is aware of these risks and wishes to proceed. Physician Signature: Bahman Marshall III, MD Date:02/24/2025 Time:9:35 AM [1] (Not in a hospital admission) [2] Current Outpatient Medications Medication Sig Dispense Refill ferrous sulfate 325 mg (65 mg iron) Oral Tablet (Patient not taking: Reported on 10/05/2021) ibuprofen (ADVIL;MOTRIN) 600 mg Oral Tablet Take 1 Tablet by mouth every 6 hours as needed. (Patient not taking: Reported on 02/24/2025) 60 Tablet 1 meloxicam (MOBIC) 15 mg Oral Tablet Take 1 Tablet by mouth daily. (Patient not taking: Reported on 02/24/2025) 30 Tablet 2 pantoprazole (PROTONIX) 40 mg Oral Tablet, Delayed Release (E.C.) (Patient not taking: Reported on 10/05/2021) sodium,potassium,mag sulfates (SUPREP BOWEL PREP KIT) 17.5-3.13-1.6 gram Oral Recon Soln Take 1 kitper physician instructions (Patient not taking: Reported on 01/28/2025) 354 mL 0 No current facility-administered medications for this encounter. [3] Allergies Allergen Reactions Mucinex [Guaifenesin] Palpitations MUCINEX DM [4] Past Medical History: Diagnosis Date Anemia [5] Past Surgical History: Procedure Laterality Date CHOLECYSTECTOMY 07/11/2020 COLONOSCOPY ENDOMETRIAL ABLATION N/A 10/11/2021 ENDOMETRIAL ABLATION WITH NOVASURE DILATION AND CURETTAGE HYSTEROSCOPY; Surgeon: Jacqueline Fine DO; Location: [facility]; Service: Gynecology TUBAL LIGATION UPPER GASTROINTESTINAL ENDOSCOPY [6] Family History Problem Relation Age of Onset Diabetes Mother Hypertension Mother Heart Disease Mother Colon Cancer Paternal Grandmother Breast Cancer Neg Hx Ovarian Cancer Neg Hx Uterine Cancer Neg Hx Anesth Problems Neg Hx documented in this encounter Plan of Treatment Upcoming Encounters Date Type Department Care Team (Late st Contact Info) Description 04/08/2025 8:00 AM EST Appointment [facility] Physical Therapy [address] [address] Ever Koroma, PT documented as of this encounter Procedures Procedure Name Priority Date/Time Associated Diagnosis Comments COLONOSCOPY Routine 02/24/2025 9:56 AM EDT Personal history of other colon polyps Family history of colon cancer- paternal GF [facility] PATH[facility]Y ORDER Routine 02/24/2025 9 :55 AM EDT Personal history of other colon polyps Family history of colon cancer POCT URINE Routine 02/24/2025 8:37 AM EDT documented in this encounter Results * COLONOSCOPY (02/24/2025 9:56 AM EDT) Anatomical Region Laterality Modality Endoscopy Narrative 02/24/2025 9:56 AM EDT Table formatting from the original result was not included. Findings One 3 mm sessile and benign-appearing polyp in the distal sigmoid colon; performed cold forceps biopsy with complete removal. The terminal ileum appeared normal. Recommendation Await pathology results Recommend a high fiber diet. Repeat colonoscopy in 5 years, due: 02/23/2030 Personal history of colon polyps Adenomatous polyps in 2021 Pre-Procedure Diagnosis / Indication Family history of colon cancer, Personal history of other colon polyps Post-Procedure Diagnosis History of colon polyps Staff Staff Role Amena Ghotra, RN Nurse Bahman Marshall III, MD Performing Provider Deanna Griffith CRNA SEAT COVER CUTTER Medications See Anesthesia Record. Preprocedure A history and physical has been performed, and patient medication allergies have been reviewed. The patient's tolerance of previous anesthesia has been reviewed. The risks and benefits of the procedure and the sedation options and risks were discussed with the patient. All questions were answered and informed consent obtained. ASA 2 - Patient with mild systemic disease Details of the Procedure The patient underwent monitored anesthesia care, which was administered by an anesthesia professional. The patient's blood pressure, heart rate, level of consciousness, oxygen saturation, respirations, ECG and ETCO2 were monitored throughout the procedure. A digital rectal exam was performed. The scope was introduced through the anus and advanced to the cecum. Retroflexion was performed in the rectum. Bowel prep was adequate. The patient experienced no blood loss. The procedure was not difficult. The patient tolerated the procedure well. There were no apparent adverse events. Patient provided education and educated on specific discharge instructions. Patient educated on medications given during the procedure and new medications for discharge. Patient verbalizes understanding of discharge education. Patient stable and awaiting transport for discharge. Events Procedure Events Event Event Time ENDO SCOPE IN TIME 02/24/2025 9:42 AM ENDO CECUM REACHED 02/24/2025 9:47 AM ENDO SCOPE WITHDRAW BEGIN 02/24/2025 9:47 AM [facility] LUME TI REACHED 02/24/2025 9:47 AM ENDO SCOPE OUT TIME 02/24/2025 9:55 AM Specimens ID Type Source Tests Collected by Time 1 : Tissue Large Intestine, Sigmoid Colon [facility] PATH[facility]Y ORDER Bahman Marshall III, MD 02/24/2025 0955 Bahman Marshall III, MD ENDOSCOPY PROCEDURE ORDERA BLES Final Result * [facility] PATH[facility]Y ORDER (02/24/2025 9:55 AM EDT) Tissue SIGMOID COLON STRUCTURE / Unknown 02/24/2025 9:55 AM EDT Impressions [facility] - 02/24/2025 7:00 PM EDT A. Colon, Sigmoid: Polyp HYPERPLASTIC POLYP(S) X 3 The polyp(s) contain hyperplastic epithelium. There is no evidence of dysplasia or malignancy. Narrative [facility] - 02/24/2025 7:00 PM EDT Pathologist: Chase Herrera MD Bahman Marshall III, MD [employer] - ORDERABLES Fin al Result Performing Organization Address City/[facility]/ZIP Co de Phone Number [facility] [address] * POCT URINE (02/24/2025 8:37 AM EDT) Preg Test, Ur negative [facility] Lot Number [id number] [facility] Expiration Date 07/07/26 [facility] SeriAl # [facility] Control Line Yes YES/NO [facility] Urine 02/24/2025 8:37 AM EDT Bahman Marshall III, MD POINT OF CARE TEST ORDERAB LES Final Result Performing Organization Address [facility] Co de Phone Number [facility] [address] [place] [address] documented in this encounter Visit Diagnoses Diagnosis Personal history of other colon polyps Family history of colon cancer- paternal GF Family history of malignant neoplasm of gastrointestinal tract Family history of colon cancer Family history of malignant neoplasm of gastrointestinal tract documented in this encounter Administered Medications Inactive Administered Medications - up to 1 most recent administrations Medication Order MAR Action Action Date Dose Rate Site lidocaine 1% 10 mg/mL (1 %) injection Intravenous, INTRAPROCEDURE, Starting on Maria C 02/24/25 at 0939, Until Maria C 02/24/25 at 0939 Given 02/24/2025 9:39 AM EDT 5 mL propofoL (DIPRIVAN) injection Intravenous, INTRAPROCEDURE, Starting on Maria C 02/24/25 at 0939, Until Maria C 02/24/25 at 0950 Given 02/24/2025 9:50 AM EDT 50 mg documented in this encounter Discontinued Medications Medication Sig Discontinue Reason Start Date End Da te sodium,potassium,mag sulfates (SUPREP BOWEL PREP KIT) 17.5-3.13-1.6 gram Oral Recon Soln Take 1 kit per physician instructions Cancelled by 01/19/2025 02/24/2025 documented as of this encounter Care Teams Body Finisher Relationship Specialty Start Date End Date Shira Anthony [facility] [address] [place] [address] PCP - General Family Medicine 07/14/13 documented as of this encounter
--- OUTSIDE RECORDS SUMMARY | 2025-03-07 06:54 | XMS_ITS | Encounter Summary ---
Author Organization [place] [address] Care Team Providers Care Salvager Helper Name Role Phone Shira Anthony Primary Care Provider [phone] Reason for Visit * Physical Therapy (Routine) - Authorized Specialty Diagnoses / Procedures Referred By Contmaggy t Referred To Contact Physical Therapy Diagnoses Acute pain of right shoulder Adhesive capsulitis of right shoulder Tendinitis of right rotator cuff Roderick Duffy MD [address] [address] Phone: tel: fax: [facility] Physical Therapy [address] [place] [address] Phone: tel: fax: Referral ID Status Reason Start Date Expiration Date V isits Requested Visits Authorized [id number] Authorized 11/29/2024 11/29/2025 99 99 Encounter Details Date Type Department Care Team (Latest Contact Info) Description 03/07/2025 7:54 AM EDT - 03/07/2025 11:59 PM EDT Hospital Encounter [facility] Physical Therapy [address] [place] [address] Ever Koroma PT Adhesive capsulitis of right [...] right shoulder,Tendinit is of right rotator cuff TAKE 1 TABLET BY MOUTH EVERY DAY 30 Tablet 2 02/27/2025 pantoprazole (PROTONIX) 40 mg Oral Tablet, Delayed Release (E.C.) 05/24/2020 documented as of this encounter Discharge Disposition Disposition Code Departure Means Destination Home or Self Care documented in this encounter Progress Notes * Ever Koroma, PT - 03/07/2025 8:00 AM EDT Images from the original note were not included. Physical Therapy Treatment Note Patient Name: Vickie Rodgers : 1970 Visit #: [id number] Onset Date: 10/09/24 Diagnosis: Acute pain of right shoulder Adhesive capsulitis of right shoulder Tendinitis of right rotator cuff Restrictions/Precautions: [place] Physician: Tati BRUNSON Follow Up: prn Evaluation Date: 12/09/2024 Reassessment Due: 03/20/25 Primary Insurance: [employer]/[facility] CHOICE PLUS Secondary Insurance: Insurance Authorization: AMB REFERRAL TO PHYSICAL THERAPY Authorized (11/29/2024-11/29/2025) Visits Requested Visits Authorized Visits Completed Visits Scheduled 99 99 18 -- Details Referral ID: [id number] Authorization Status Reason: Covered Benefit Authorization Comments: -- Referred To: SUDARSHAN BOO PT Referred By: Roderick Duffy MD at [facility] Creation Date: 11/29/2024 Referral Reasons: -- Referral Order: AMB REFERRAL TO PHYSICAL THERAPY Time In/Out: 8:03/8:55 Timed Treatment Minutes: Manual therapy techniques 10 minutes Therapeutic Exercise 20 minutes Total Timed Code Treatment Minutes: 30 Untimed Treatment Minutes: Hot/cold packs and Vaso Total Treatment Minutes: 50 Medication Changes: Pain: 1 Location: right shoulder Description: Pain is described as aching, dull, sharp, and variable intensity Subjective The patient reports the shoulder still gets a little painful at times. Objective: Treatment UBE x 4 minutes (2' [...] injury. [] Unmet [] Progressing [x] Met Slabbing Machine Operator Goals: (set for 8 weeks) Update/Status Patient's [...] signed by: Signed: Ever Koroma PT Date: 03/07/2025 documented in this encounter Plan of Treatment Upcoming Encounters Date Type Department Care Team (Late st Contact Info) Description 04/08/2025 8:00 AM EST Appointment [facility] Physical Therapy [address] [place] [address] Ever Koroma PT documented as of this encounter Visit Diagnoses Diagnosis Adhesive capsulitis of right shoulder- Primary Adhesive capsulitis of shoulder documented in this encounter Care Teams Salvager Helper Relationship Specialty Start Date End Date Shira Anthony [address] [facility] [address] [place] [address] PCP - General Family Medicine 07/14/13 documented as of this encounter
--- OUTSIDE RECORDS SUMMARY | 2025-03-25 07:54 | XMS_ITS | Encounter Summary ---
Author Organization [place] [address] Care Team Providers Care Database Specialist Name Role Phone Shira Anthony Primary Care Provider [phone] Reason for Visit * Physical Therapy (Routine) - Authorized Specialty Diagnoses / Procedures Referred By Contmaggy t Referred To Contact Physical Therapy Diagnoses Acute pain of right shoulder Adhesive capsulitis of right shoulder Tendinitis of right rotator cuff Roderick Duffy MD [address] [address] Phone: tel: fax: [facility] Physical Therapy [address] [place] [id number] Phone: tel: fax: Referral ID Status Reason Start Date Expiration Date V isits Requested Visits Authorized [id number] Authorized 11/29/2024 11/29/2025 99 99 Encounter Details Date Type Department Care Team (Latest Contact Info) Description 03/25/2025 7:54 AM EST - 03/25/2025 11:59 PM EST Hospital Encounter [facility] Physical [place] [address] Kyle Lee PTA Adhesive capsulitis of right [...] Progress Notes * Kyle Lee PTA - 03/25/2025 8:00 AM EST Images from the original note were not included. Physical Therapy Treatment Note Patient Name: Vickie Rodgers : 1970 Visit #: 19 Onset Date: 10/09/24 Diagnosis: Acute pain of right shoulder Adhesive capsulitis of right shoulder Tendinitis of right rotator cuff Restrictions/Precautions: [place] Physician: Tati BRUNSON Follow Up: prn Evaluation Date: 12/09/2024 Reassessment Due: 03/20/25 Primary Insurance: [employer]/[facility] CHOICE PLUS Secondary Insurance: Insurance Authorization: AMB REFERRAL TO PHYSICAL THERAPY Authorized (11/29/2024-11/29/2025) Visits Requested Visits Authorized Visits Completed Visits Scheduled 99 99 19 1 Details Referral ID: [id number] Authorization Status Reason: Covered Benefit Authorization Comments: -- Referred To: SUDARSHAN BOO PT Referred By: Roderick Duffy MD at [facility], [facility] Creation Date: 11/29/2024 Referral Reasons: -- Referral Order: AMB REFERRAL TO PHYSICAL THERAPY Time In/Out: 7:55 am / 8:56 am (61 min) Medication Changes: None Pain: 0 Location: right shoulder Description: Pain is described as aching, dull, sharp, and variable intensity Subjective Pt reports she doesn't know if she should even be here. She has been painting at home and feeling good. Objective: 02/17/25 AROM: Left WNLS Right: Flex [...] - 10 sec x 10 - Standing Low Trap Pull Down - Black 3 x 10 - Standing Rows - Black x 30 - Standing Ext - Black x 30 - Standing Flex - Black x 30 - Standing IR - Black x 30 - Standing ER - Black x 30 VASO and ICE to right shoulder in longsitting with head of mat raised x 20 minutes. HEP Updated HEP and black t-band issued to patient Therapeutic Exercise: x 22 minutes Manual Therapy: x 12 minutes Modalities: x 20 minutes Total Timed Treatment: x 34 minutes Assessment Pt tolerated rx well. PROM WNL's in all ranges. Goals Short Term Goals: (set for 2 weeks) Update/Status Patient will be independent with HEP in order to promote long-term health and reduce risk for injury. [] Unmet [] Progressing [x] Met Correction Goals: (set for 8 weeks) Update/Status Patient's [...] signed by: Signed: Kyle Lee PTA Date: 03/25/2025 Charges: MANUAL x 1, TE x 1, VASO, ICE documented in this encounter Plan of Treatment Upcoming Encounters Date Type Department Care Team (Late st Contact Info) Description 04/08/2025 8:00 AM EST Appointment [facility] Physical Therapy [address] [place] [phone] Ever Koroma, PT documented as of this encounter Visit Diagnoses Diagnosis Adhesive capsulitis of right shoulder- Primary Adhesive capsulitis of shoulder documented in this encounter Care Teams Database Specialist Relationship Specialty Start Date End Date Shira Anthony [address] [facility] [address] [place] [address] PCP - General Family Medicine 07/14/13 documented as of this encounter
--- OUTSIDE RECORDS SUMMARY | 2025-03-28 13:37 | XMS_ITS | Encounter Summary ---
Author Organization [facility] Address [address] [place] [address] Care Team Providers Care Cad Draftsman Name Role Phone Shira Anthony Primary Care Provider [phone] Reason for Visit * Reason Comments Medication Refill Encounter Details Date Type Department Care Team (Late Contact Info) Description 02/26/2025 Refill [facility] [address] [place] [address] Roderick Duffy MD [address] [place] [address] [address] [place] [address] Medication Refill Social History Tobacco Use Types Packs/Day Years [...] of right shoulder,Tendinitis of right rotator cuff TAKE 1 TABLET BY MOUTH EVERY DAY 30 Tablet 2 02/27/2025 documented in this encounter Plan of Treatment Upcoming Encounters Date Type Department Care Team (Late Contact Info) Description 04/08/2025 8:00 AM EST Appointment [facility] Physical Therapy [address] [place] [address] Ever Koroma, JOANN documented as of this encounter Visit Diagnoses Diagnosis Acute pain of right shoulder Adhesive capsulitis of right shoulder Adhesive capsulitis of shoulder Tendinitis of right rotator cuff Disorders of bursae and tendons in shoulder region, unspecified documented in this encounter Discontinued Medications Medication Sig Discontinue Reason Start Date End Da te meloxicam (MOBIC) 15 mg Oral TabletIndications:Acute pain of right shoulder,Adhesive capsulitis of right shoulder,Tendinitis of right rotator cuff Take 1 Tablet by mouth daily. 11/29/2024 02/27/2025 documented as of this encounter Care Teams Cad Draftsman Relationship Specialty Start Date End Date Shira Anthony [address] [facility] [address] [place] [address] PCP - General Family Medicine 07/14/13 documented as of this encounter
--- OUTSIDE RECORDS SUMMARY | 2025-03-28 13:37 | XMS_ITS | Encounter Summary ---
Author Organization [facility] Address [address] [place] [address] Care Team Providers Care Faucets Assembler Name Role Phone Shira Anthony Primary Care Provider [phone] Encounter Details Date Type Department Care Team (Late Contact Info) Description 03/17/2025 Results Follow-Up [facility] [address] [place] [address] Bahman Marshall III, MD [address] [place] [id number] [facility] PATHOLOGY ORDER Social History Tobacco Use Types Packs/Day Years [...] Appointment [facility] Physical Therapy [address] [place] [address] Ever Koroma, PT documented as of this encounter Visit Diagnoses Not on filedocumented in this encounter Care Teams Faucets Assembler Relationship Specialty Start Date End Date Shira Anthony [address] [place] [address] PCP - General Family Medicine 07/14/13 documented as of this encounter
--- OUTSIDE RECORDS SUMMARY | 2025-03-28 13:37 | XMS_ITS | Encounter Summary ---
Author Organization [place] [address] Care Team Providers Care Dyehouse Worker Name Role Phone Shira Anthony Primary Care Provider [phone] Encounter Details Date Type Department Care Team (Late Contact Info) Description 12/01/2024 Orders Only [facility] Physical Therapy [address] [facility] Ever Koroma, PT Social History Tobacco Use [...] Info) Description 04/08/2025 8:00 AM EST Appointment [facility] Physical Therapy [address] [place] [phone] Ever Koroma, PT documented as of this encounter Visit Diagnoses Not on filedocumented in this encounter Care Teams Dyehouse Worker Relationship Specialty Start Date End Date Shira Anthony [address] [facility] [address] [place] [address] PCP - General Family Medicine 07/14/13 documented as of this encounter
--- OUTSIDE RECORDS SUMMARY | 2025-03-28 13:37 | XMS_ITS | Encounter Summary ---
Author Organization Healthcare Address [address] [place] [address] Care Team Providers Care Director Nurses' Registry Name Role Phone Unavailable Primary Care Provider Unavailabl e Encounter Details Date Type Department Care Team (Late st Contact Info) Description 01/10/2023 Community Orders [facility] [address] [place] [address] Bita Christopher, [employer] SE[employer] [address] [place] [address] Obstructive sleep apnea (Primary Dx); [...]
--- OUTSIDE RECORDS SUMMARY | 2025-03-28 13:38 | XMS_ITS | Clinical Summary ---
Author Organization [facility] Address [address] [place] [address] Care Team Providers Care Spool Salvager Name Role Phone Unavailable Primary Care Provider [...]
--- OUTSIDE RECORDS SUMMARY | 2025-03-28 13:38 | XMS_ITS | Encounter Summary ---
Author Organization [facility] [place] [address] Care Team Providers Care Supervisor Speech Name Role Phone Shira Anthony Primary Care Provider [phone] Encounter Details Date Type Department Care Team (Latest Contact Info) Description 02/23/2025 Travel Social History Tobacco Use Types Packs/Day Years [...] Info) Description 04/08/2025 8:00 AM EST Appointment [facility] Physical Therapy [address] [place] [address] Ever Koroma, PT documented as of this encounter Visit Diagnoses Not on filedocumented in this encounter Care Teams Supervisor Speech Relationship Specialty Start Date End Date Shira Anthony [address] [facility] [address] [place] [address] PCP - General Family Medicine 07/14/13 documented as of this encounter
--- OUTSIDE RECORDS SUMMARY | 2025-03-28 13:38 | XMS_ITS | Clinical Summary ---
Author Organization [facility] Address [address] [place] [address] Phone Care Team Providers Care Choral Director Name Role Phone Shira Anthony Primary Care Provider [phone] Allergies Active Allergy Reactions Criticality Noted Date Comments Guaifenesin Palpitations Low 10/05/2021 MUCINEX DM Medications pantoprazole (PROTONIX) 40 mg Oral Tablet, Delayed Release (E.C.) 05/24/19 21 Active ferrous sulfate 325 mg (65 mg iron) Oral Tablet 03/09/20 20 Active ibuprofen (ADVIL;MOTRIN) 600 mg Oral Tablet Take 1 Tablet by mouth every 6 hours as needed. 60 Tablet 1 2 9:32 AM EDT 10/12/19 Active Additional Information Patient not taking.Reason: Therapy Completed, Reported on 02/24/2025 meloxicam (MOBIC) 15 mg Oral TabletIndicati ons:Acute pain of right shoulder,Adhes tigre capsulitis of right shoulder,Tendi nitis of right rotator cuff TAKE 1 TABLET BY MOUTH EVERY DAY 30 Tablet 2 02/28/20 25 Active meloxicam (MOBIC) 15 mg Oral TabletIndicati ons:Acute pain of right shoulder,Adhes tigre capsulitis of right shoulder,Tendi nitis of right rotator cuff Take 1 Tablet by mouth daily. 30 Tablet 2 11/30/19 25 025 Discontinued Active Problems Problem Noted Date Diagnosed Date Family history of colon cancer- paternal GF 01/2025 Personal history of other colon polyps 5 Acute upper respiratory infection 01/24/2025 Allergic rhinitis 01/24/2025 Bronchitis 01/24/2025 Gastroesophageal reflux disease 01/24/2025 Hot flashes 01/24/2025 Intolerance of continuous po sitive airway pressure (CPAP) ventilation 01/24/2025 ANDREW (obstructive sleep apnea) 01/24/2025 Tobacco abuse 01/24/2025 Adhesive capsulitis of right shoulder 12/09/2024 Abnormal uterine bleeding (AUB) 10/04/2021 Overview (10/04/2021): Added automatically from request for surgery [id number] Other diseases of stomach and duodenum 0 Polyp of colon 12/02/2019 Perimenopausal 04/30/2016 Encounters Date Type Department Care Team Description 03/25/2025 7:54 AM EST - 03/25/2025 11:59 PM EST Hospital Encounter [facility] Physical Therapy [address] [place] [address] Kyle Lee PTA Adhesive capsulitis of right shoulder (Primary Dx) Discharge Disposition: Home or Self Care 03/17/2025 Results Follow-Up [facility] [address] [facility] [place] [address] Bahman Marshall III, MD [facility] PATHOLOGY ORDER 03/07/2025 7:54 AM EDT - 03/07/2025 11:59 PM EDT Hospital Encounter [facility] Physical Therapy [address] [place] [address] Ever Koroma, PT Adhesive capsulitis of right shoulder (Primary Dx) Discharge Disposition: Home or Self Care 02/26/2025 Refill [facility] [address] [place] [address] Roderick Duffy MD Medication Refill 02/24/2025 8:05 AM EDT - 02/24/2025 11:59 PM EDT Hospital Encounter [facility] [address] [facility] [place] [address] Bahman Marshall III, MD Personal history of other colon polyps; Family history of colon cancer- paternal GF; Family history of colon cancer Discharge Disposition: Home or Self Care 02/23/2025 Travel 02/21/2025 7:57 AM EDT - 02/21/2025 11:59 PM EDT Hospital Encounter [facility] Physical Therapy [address] [place], [place] [address] Kyle Lee, ELECTRICAL INSTRUMENT MAKER Adhesive capsulitis of right shoulder (Primary Dx) Discharge Disposition: Home or Self Care 02/17/2025 8:58 AM EDT - 02/17/2025 11:59 PM EDT Hospital Encounter [facility] Physical Therapy [address] [place], [place] [address] Emma Tinoco, PT Adhesive capsulitis of right shoulder (Primary Dx) Discharge Disposition: Home or Self Care 02/14/2025 7:57 AM EDT - 02/14/2025 11:59 PM EDT Hospital Encounter [facility] [place] [address] Ever Koroma, PT Adhesive capsulitis of right shoulder (Primary Dx) Discharge Disposition: Home or Self Care 02/11/2025 7:54 AM EDT - 02/11/2025 11:59 PM EDT Hospital Encounter [facility] [place] [address] Kyle Lee, ELECTRICAL INSTRUMENT MAKER Adhesive capsulitis of right shoulder (Primary Dx) Discharge Disposition: Home or Self Care 01/31/2025 7:53 AM EDT - 01/31/2025 11:59 PM EDT Hospital Encounter [facility] [place] [place] [address] Kyle Lee, ELECTRICAL INSTRUMENT MAKER Adhesive capsulitis of right shoulder (Primary Dx) Discharge Disposition: Home or Self Care 01/28/2025 11:15 AM EDT - 01/28/2025 11:59 PM EDT Hospital Encounter [facility] [place] [address] Kyle Lee, ELECTRICAL INSTRUMENT MAKER Adhesive capsulitis of right shoulder (Primary Dx) Discharge Disposition: Home or Self Care 01/28/2025 8:45 AM EDT Office Visit [facility] [address] [place] [address] Roderick Duffy MD Adhesive capsulitis of right shoulder (Primary Dx); Tendinitis of right rotator cuff 01/26/2025 7:30 AM EDT - 01/26/2025 11:59 PM EDT Hospital Encounter [facility] Physical Therapy [address] [place] [address] Ever Koroma, PT Adhesive capsulitis of right shoulder (Primary Dx) Discharge Disposition: Home or Self Care 01/24/2025 10:26 AM EDT - 01/24/2025 11:59 PM EDT Hospital Encounter [facility] [place] [address] Kyle Lee, MOOSE Adhesive capsulitis of right shoulder (Primary Dx) Discharge Disposition: Home or Self Care 01/19/2025 Telephone [facility] [address] [facility] [place] [address] Bahman Marshall III, MD Procedure 01/10/2025 2:00 PM EDT - 01/10/2025 11:59 PM EDT Hospital Encounter [facility] [place] [address] Kyle Lee PTA Adhesive capsulitis of right shoulder (Primary Dx) Discharge Disposition: Home or Self Care 01/07/2025 7:53 AM EDT - 01/07/2025 11:59 PM EDT Hospital Encounter [facility] Physical Therapy [address] [place] [address] Ever Koroma, PT Adhesive capsulitis of right shoulder (Primary Dx) Discharge Disposition: Home or Self Care 01/03/2025 7:50 AM EDT - 01/03/2025 11:59 PM EDT Hospital Encounter [facility] Physical Therapy [address] [place] [address] Ever Koroma, PT Adhesive capsulitis of right shoulder (Primary Dx) Discharge Disposition: Home or Self Care 12/31/2024 7:50 AM EDT - 12/31/2024 11:59 PM EDT Hospital Encounter [facility] Physical Therapy [address] [place] [address] Kyle Lee, MOOSE Adhesive capsulitis of right shoulder (Primary Dx) Discharge Disposition: Home or Self Care 12/27/2024 7:54 AM EDT - 12/27/2024 11:59 PM EDT Hospital Encounter [facility] Physical Therapy [place] [address] Kyle Lee, MOOSE Adhesive capsulitis of right shoulder (Primary Dx) Discharge Disposition: Home or Self Care from Last 3 Months Surgical History Surgery [...] Mass Index 29.12 02/24/2025 8:35 AM EDT Plan of Treatment Upcoming Encounters Date Type Department Care Team (Late st Contact Info) Description 04/08/2025 8:00 AM EST Appointment [facility] Physical Therapy [address] [place], [place] [id number] Ever Koroma, PT Health Maintenance Due Date Last Done Comments Annual Wellness Exam 1972 DTaP/TDaP/Td (1 - Tdap) 1988 Hepatitis B Vaccine (1 of 3 - 19+ 3-dose series) 1988 Pneumococcal Vaccine 50+ (1 of 2 - PCV) 1988 Cologuard 2014 FIT 2014 Sigmoidoscopy 2014 Virtual Colonography 2014 Zoster (1 of 2) 10/24/2019 Pap Smear 09/10/2024 09/10/2021, 05/20, 08/08/2015 COVID-19 Vaccine ( season) 2025 04/19/2021, 08/25/2020, 08/18/2020 Influenza Vaccine (#1) 2025 07/16/2018 Low Dose Lung Cancer Screening 11/04/2025 11/04/2024, 07/21/2023, 01/17/2015 Cervical Cancer Screening 09/10/2026 HPV/Pap Cotest 09/10/2026 09/10/2021 Breast Cancer Screening 12/10/2026 12/11/19 25, 06/13/2023, 09/22/2020, Additional history exists Colon Cancer Screening 02/23/2030 Colonoscopy 02/23/2030 02/24/2025, 12/02/2019 Meningococcal B Vaccine Aged Out No l [...] POCT URINE Routine 02/24/2025 8:37 AM EDT MM MAMMO DIGITAL NISHANT SCREEN BILAT Routine 12/10/2024 9:01 AM EDT Encounter for screening mammogram for malignant neoplasm of breast CT LUNG CANCER SCREENING LOW DOSE Routine 11/04/2024 12:18 PM EDT Screening for malignant neoplasm of respiratory organ [facility] REQUEST (PAP ONLY) Routine 09/10/2021 11:17 AM EDT Well woman exam from Last 3 Months or Most Recently Relevant to Health Maintenance Results * COLONOSCOPY (02/24/2025 9:56 AM EDT) [...] of colon polyps Staff Staff Role Amena Ghotra RN Nurse Bahman Marshall III, MD Performing Provider Deanna Bridges, ANALYTICAL CHEMIST ANALYTICAL CHEMIST Medications See Anesthesia Record. Preprocedure A history [...] / Unknown 02/24/2025 9:55 AM EDT Impressions [facility] - 02/24/2025 7:00 PM EDT A. Colon, Sigmoid: Polyp HYPERPLASTIC POLYP(S) X 3 The polyp(s) contain hyperplastic epithelium. There is no evidence of dysplasia or malignancy. Narrative [facility] - 02/24/2025 7:00 PM EDT Pathologist: Chase Herrera MD Bahman Marshall III, MD [employer] - ORDERABLES Fin al Result Performing Organization Address City/[facility]/ZIP Co de Phone Number [facility] [address] * POCT URINE (02/24/2025 8:37 AM EDT) Preg Test, Ur negative [facility] Lot Number [id number] [facility] Expiration Date 07/07/26 [facility] SeriAl # [facility] Control Line Yes YES/NO [facility] Urine 02/24/2025 8:37 AM EDT Bahman Marshall III, MD POINT OF CARE TEST ORDERAB LES Final Result Performing Organization Address City/[facility]/ZIP Co de Phone Number [facility] [address] [phone] * MM MAMMO DIGITAL NISHANT SCREEN BILAT (12/10/2024 9:01 AM EDT) Anatomical Region Laterality Modality Breast Bilateral Mammography 12/10/2024 9:01 AM EDT Impressions 12/10/2024 9:34 AM EDT Negative ([id number]) RECOMMENDATION: Routine Screening Mammogram in 1 Year Bilateral . . COMMENTS: DISCLAIMER *The patient was notified by MyChart or mail of the results for this examination. *The patient's information was entered into a reminder system with a target due date for the next breast imaging, in accordance with the [employer] and the Society of [...] for screening mammogram for malignant neoplasm of [id number]-CM COMPARISON STUDIES: Compared with prior studies the most recent being 06/13/2023 MM MAMMO DIGITAL NISHANT SCREEN BILAT at [facility] 09/22/2020 MM MAMMO DIGITAL NISHANT SCREEN BILAT at [facility] TISSUE DENSITY: The breasts are heterogeneously dense, which may obscure small masses. FINDINGS: No mammographic evidence of malignancy. Procedure Note Stephani Cruz MD - 12/10/2024 EXAM: MM MAMMO DIGITAL NISHANT SCREEN BILAT EXAM DATE: 12/10/2024 9:01 AM INDICATION: Z12.31-Encounter for screening mammogram for malignantneoplasm of [id number]-CM COMPARISON STUDIES: Compared with prior studies the most recent being 06/13/2023 MM MAMMO DIGITAL NISHANT SCREEN BILAT at [facility] 09/22/2020 MM MAMMO DIGITAL NISHANT SCREEN BILAT at [facility] TISSUE DENSITY: The breasts are heterogeneously dense, which may obscuresmall masses. FINDINGS: No mammographic evidence of malignancy. IMPRESSION: Negative ([id number]) RECOMMENDATION: Routine Screening Mammogram in 1 Year Bilateral . . COMMENTS: DISCLAIMER *The patient was notified by MyChart or mail of the results for this examination. *The patient's information was entered into a reminder system with atarget due date for the next breast imaging, in accordance with the [employer] and the Society of Breast Imaging recommendations. *Breast Imaging has a false negative rate of 15%. *Any patient with a palpable abnormality, unexplained by breast imaging,should be managed on a clinical basis by the attending physician. Belkis Maguire APRN IMG MAMMOGRAPHY ORDERABLES Fin al Result * CT LUNG CANCER SCREENING LOW DOSE [...] contact the office of the ordering clinician. [email or web address] Narrative 11/08/2024 2:[address] LUNG CANCER SCREENING LOW DOSE 11/04/2024 12:18 PM CLINICAL HISTORY: Asymptomatic patient meeting NCCN high risk criteria for lung screening. Z12.2-Encounter for screening for malignant neoplasm of respiratory [id number]-CM. COMPARISON: 07/21/2023 PROCEDURE COMMENTS: Noncontrast, low-dose, multidetector [...] Continued ANNUAL LOW-DOSE SCREENING CT SCAN (IMG 31568) suggested if age <78. Lung-RADS Modifier N/A: No Modifier Needed Procedure Note Broderick Mcdonough MD - 11/08/2024 CT LUNG CANCER SCREENING LOW DOSE 11/04/2024 12:18 PM CLINICAL HISTORY: Asymptomatic patient meeting NCCN high risk criteria forlung screening. Z12.2-Encounter for screening for malignant neoplasm ofrespiratory [id number]-IUO-52-CM. COMPARISON: 07/21/2023 PROCEDURE COMMENTS: Noncontrast, low-dose, multidetector [...] nodule(s). Continued ANNUAL LOW-DOSE SCREENING CT SCAN ([facility] [id number])suggested if age <78. Lung-RADS Modifier N/A: No Modifier Needed IMPRESSION: Unremarkable low-dose screening chest CT. RECOMMENDATION: Low Dose CT - 1 Yr A summary letter communicating these results will be mailed to thepatient's address of record. - Note: Radiology results need to be interpreted within a comprehensiveclinical context. If you have questions about the radiology report, please contactthe office of the ordering clinician. [email or web address] Belkis Maguire [employer] [facility] ORDERABLES Final Result * [facility] CYT[facility] REQUEST (PAP ONLY) (09/10/2021 11:17 AM EDT) CASE REPORT Gynecologic Cytology Report Case: [id number] Authorizing Provider: Jacqueline Fine Collected: 09/10/2021 1117 DO Tabby Ordering Location: [facility] Received: 09/10/2021 1117 First Screen: Leann Easley CT Specimen: LIQUID-BASED PAP - CERVICAL/ENDOCERV ICAL, Cervix, Endocervical 09/17/2021 10:21 AM EDT [facility] PAP FINAL DIAGNOSIS Negative for intraepithelial lesion or malignancy 09/17/2021 10:21 AM EDT [facility] at 1021 EDT MICROSCOPIC DESCRIPTION Microscopic examination is performed and the findings corroborate the diagnosis. 09/17/2021 10:21 AM EDT [facility] PAP SMEAR ADEQUACY Satisfactory for evaluation 09/17/2021 10:21 AM EDT [facility] ENDOCERVICAL T-ZONE Transformation zone present 09/17/2021 10:21 AM EDT [facility] EMBEDDED IMAGES 10:21 AM EDT [facility] PAP DISCLAIMER Note: this specimen was reprocessed due to excessive blood. The Pap Smear is a screening test that aids in the detection of cervical cancer and cancer precursors. Both false positive and false negative results can occur. The test should be used at regular intervals, and positive results should be confirmed before definitive therapy. Processed using the ThinPrep Seed Yeast Operator Automated cytology screening device (mywaves). 09/17/2021 10:21 AM EDT [facility] PAP OTHER FINDINGS Many acute inflammatory cells noted. 09/17/2021 10:21 AM EDT [facility] Thin Prep ENDOCERVICAL STRUCTURE / Unknown 09/10/2021 11:17 AM EDT 09/10/2021 11:17 AM EDT us Jacqueline Fine DO CYTOLOGY ORDERABLE S Final Result [facility] [address] [place] [id number] from Last 3 Months or Most Recently Relevant to Health Maintenance Insurance CHOICE PLUS CHOICE PLUS CHOICE PLUS CHOICE PLUS Care Teams Choral Director Relationship Specialty Start Date End Date Shira Anthony [address] [facility] [address] PCP - General Family Medicine 07/14/13
--- NOTE | 2025-03-28 13:45 | US_ITS ---
PROCEDURE: US TRANSVAGINAL CLINICAL INDICATION: fibroid COMPARISON: US US TRANSVAGINAL from 06/05/2020 FINDINGS: Transvaginal and transabdominal sonographic images of the pelvis were obtained. UTERUS: 7.4cm x 4.9cmx 4.3cm with a combined endometrial thickness of 5.4mm. There is a fundal fibroid that measures 5.0 cm x 4.4 cm x 4.9 cm There are several small nabothian cysts in the cervix. LEFT OVARY: 4.0cmx2.2cmx2.3cm with a volume of 10.5ml. Follicle 1. 1.9 cm Follicle 2. 1.7 cm RIGHT OVARY: 2.2cmx 2.2cmx1.3cm with a volume of 3.4ml. Both ovaries are seen and appear normal. Doppler flow to both ovaries are seen. There is no fluid in the cul-de-sac. IMPRESSION: 1. Anteverted, bulky uterus. The endometrium is thin but difficult to differentiate. 2. There continues to be a large fundal fibroid measuring 5.0 cm. This appears to be slightly smaller than her previous ultrasound in 2020. 3. Both ovaries appear normal. The left ovary contains 2 follicles measuring 1.9 cm and 1.7 cm. The right ovary appears atrophic. 4. No fluid in the cul-de-sac Dictated by: Tae Good MD 03/29/2025 12:46 Tae Good MD in OV 03/29/2025 12:46
== END 2025-03-28 23:59 | disposition home or self-care (01) ==
LOC: RAD 13:36
PROVIDERS: PCP Nurse Practitioner; Visit Provider Obstetrics & Gynecology
DX: D25.9 Leiomyoma of uterus, unspecified (principal)
CPT/HCPCS: 76830